=== PATIENT | female | born 1935 | race Two or more races ===

== ENCOUNTER 2018-05-26 23:01 | Inpatient (IN) | payer MEDICARE, OTHER ==
[~2018-05-26] VITALS: Ht 160 cm; Wt 78.0 kg
[2018-05-26 23:21] VITALS: BP 165/110
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
[2018-05-26] MEDS ORDERED: Acetaminophen 500mg (ES) tab ORAL ONE (23:30)
[2018-05-26 23:36] LABS: BASOPHILS % (AUTO) 0.5 % (0.0-2.0); EOSINOPHILS % (AUTO) 0.1 % (0.0-3.0); HEMOGLOBIN 11.4 G/DL (12.0-16.0); LYMPHOCYTES % (AUTO) 13.9 % (20.0-45.0); MEAN CORPUSCULAR VOLUME 95 FL (80-99); MONOCYTES % (AUTO) 5.2 % (1.0-10.0); NEUTROPHILS % (AUTO) 80.2 % (45.0-75.0); PLATELET COUNT 190 K/UL (150-450); RED BLOOD COUNT 3.58 M/UL (4.20-5.40); RED CELL DISTRIBUTION WIDTH 13.3 % (11.6-14.8); WHITE BLOOD COUNT 8.9 K/UL (4.8-10.8)
[2018-05-26] MEDS ORDERED: DOCUSATE SODIU100 MG ORAL (23:37)
[2018-05-26] MEDS ORDERED: GABAPENTIN100 MG ORAL (23:37)
[2018-05-26] MEDS ORDERED: METHOCARBAMOL500 MG ORAL (23:37)
[2018-05-26] MEDS ORDERED: TRAMADOL HCL50 MG ORAL (23:37)
[2018-05-26] MEDS ORDERED: ASPIR 8181 MG ORAL (23:37)
[2018-05-26] MEDS ORDERED: METOPROLOL SUCC50 MG ORAL (23:37)
[2018-05-26] MEDS ORDERED: IRON325 M1 PO (23:37)
[2018-05-26] MEDS ORDERED: ACETAMINOPHEN500 M3 ORAL (23:37)
[2018-05-26] MEDS ORDERED: VITAMIN D250000 UNI1 ORAL (23:37)
[2018-05-26 23:49] LABS: ANION GAP 11 mmol/L (5-15); BLOOD UREA NITROGEN 22 mg/dL (7-18); CALCIUM 8.7 MG/DL (8.5-10.1); CARBON DIOXIDE 20 MMOL/L (21-32); CHLORIDE 99 MMOL/L (98-107); CREATININE 1.6 MG/DL (0.55-1.30); POTASSIUM 4.4 MMOL/L (3.5-5.1); SODIUM 130 MMOL/L (136-145)
--- NOTE | 2018-05-27 | NUR ---
NURSE NOTES: received pt sleeping in stable condition. no s/s of acute distress or acute pain. safety precautions in place. will continue to monitor
[2018-05-27 00:02] LABS: ALANINE AMINOTRANSFERASE 19 U/L (12-78); ALBUMIN/GLOBULIN RATIO 0.6 (1.0-2.7); ALKALINE PHOSPHATASE 66 U/L (46-116); ASPARTATE AMINO TRANSFERASE 25 U/L (15-37); BILIRUBIN,TOTAL 0.5 MG/DL (0.2-1.0); CKMB 1.1 NG/ML (0.0-3.6); CREATINE KINASE 146 U/L (26-308)
--- NOTE | 2018-05-27 00:15 | NUR ---
ED Nurse Note: URINE SENT TO LAB
[2018-05-27 00:24] LABS: APPEARANCE,URINE CLOUDY; BILIRUBIN, URINE NEGATIVE (NEGATIVE); COLOR,URINE YELLOW; GLUCOSE, URINE (UA) NEGATIVE (NEGATIVE); KETONES,URINE NEGATIVE (NEGATIVE); LEUKOCYTE ESTERASE ,URINE 3+ (NEGATIVE); NITRITE,URINE NEGATIVE (NEGATIVE); PH,URINE 7 (4.5-8.0); PROTEIN,URINE 3+ (NEGATIVE); UROBILINOGEN,URINE NORMAL MG/DL (0.0-1.0)
[2018-05-27] MEDS ORDERED: Cefepime HCl 1 GM in D5W 55 ML IVPB ONE (00:45)
[2018-05-27] MEDS ORDERED: Aspirin Baby 81mg ORAL ONE (00:45)
--- NOTE | 2018-05-27 01:05 | NUR ---
ED Nurse Note: (granddaughter) Carlos sears - [phone]
[2018-05-27 01:10] VITALS: BP 112/88
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
--- NOTE | 2018-05-27 02:20 | NUR ---
ED Nurse Note: TELEPHONE REPORT GIVEN TO MELYSSA JUÁREZ
--- NOTE | 2018-05-27 02:30 | NUR ---
ED Nurse Note: PT WAS SENT TO TELE WITH MICK, EMT AND SONI RN. PT WA ACCOMPANIED WITH [employer] MONITOR. PT IS AOX4, SKIN INTACT, NO IN ACTUE DISTRESS. PT DENIES PAIN THIS TIME. PT ON ROOM AIR VSS. ALL BELONINGS SENT WITH PT
--- NOTE | 2018-05-27 02:30 | NUR ---
NURSE NOTES: received pt from ER pt with no acute distress noted. personal belonging list checked and signed.will continue to monitor pt
[2018-05-27 04:00] VITALS: BP 114/65
--- NOTE | 2018-05-27 06:52 | NUR ---
NURSE NOTES: pt in stable condition. will endorse pt to incoming nurse.
--- NOTE | 2018-05-27 07:20 | NUR ---
NURSE NOTES: I received the patient awake and resting in bed. Patient alert and oriented x4. Patient does not display any signs of distress or SOB. Bed in the lowest position and call light within reach.
--- NOTE | 2018-05-27 07:32 | NUR ---
HAND-OFF: Report given to Skye RN .
[2018-05-27 08:00] VITALS: BP 165/105
[2018-05-27] MEDS: Heparin 5000 units/ml inj SUBQ SCH ×2 (08:46→20:23)
[2018-05-27] MEDS ORDERED: Docusate 100mg cap ORAL SCH (09:00)
[2018-05-27] MEDS ORDERED: HydrALAZINE 25mg tab ORAL SCH (09:30)
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
[2018-05-27] MEDS ORDERED: Methocarbamol 500mg tab ORAL PRN (09:45)
[2018-05-27] MEDS: Aspirin EC 81mg tab ORAL SCH ×2 (10:00→10:13)
[2018-05-27] MEDS: cefTRIAXone 1 GM in NS 55 ML IVPB SCH (10:13)
--- NOTE | 2018-05-27 11:31 | NUR ---
NURSE NOTES: Dr. Deleon was made aware of patient's troponin level.
[2018-05-27 12:00] VITALS: BP 133/68
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
[2018-05-27] MEDS: Metoprolol Succinate XL 50mg tab ORAL SCH (14:03)
--- NOTE | 2018-05-27 15:07 | NUR ---
CASE MANAGEMENT: REVIEW 82/F PRESENTED TO ED FROM HOME CC: FEVER 101.9 SI: UTI . SEPSIS T 101.8 HR 132 RR 23 BP 165/110 SAT 98% ROOM AIR H/H 11.4/34.0 BUN 22 CR 1.6 UA: LEUKOCYTE ESTERASE 3+ WBC 60-80 IS: TYLENOL PO X1 NS IVF BOLUS X1 ASA PO X1 CEFEPIME IV X1 PATIENT ADMITTED TO TELEMETRY UNIT 05/27/2018 DCP: PATIENT IS FROM HOME
[2018-05-27 16:00] VITALS: BP 141/99
[2018-05-27] MEDS: traMADol 50mg tab ORAL PRN (16:16)
[2018-05-27] MEDS: Docusate 100mg cap ORAL SCH (18:19)
--- NOTE | 2018-05-27 18:28 | NUR ---
NURSE NOTES: Dr. Deleon made aware of patient's troponin. She said there is not need to repeat another troponin blood test.
--- NOTE | 2018-05-27 19:22 | Infectious Diseases Prog Note ---
Assessment/Plan Assessment/Plan Full consult dictated: A) 1) uti, pyelonephritis, sepsis, fevers, sirs 2) allergies - pcn, tolerates cephalosporins 3) pmh noted P) 1) ceftriaxone 2) check urine cultures 3) check labs 4) thank you Subjective Allergies: Coded Allergies: PENICILLINS (Verified Allergy, Unknown, 05/26/18) Objective Vital Signs Last 24 Hour Vital Signs Date Time Temp Pulse Resp B/P (MAP) Pulse Ox O2 Delivery O2 Flow Rate FiO2 05/27/18 16:52 97.0 05/27/18 16:46 100.9 05/27/18 16:00 100.9 81 20 141/99 (113) 05/27/18 15:31 85 05/27/18 14:03 103 137/68 05/27/18 12:00 99.7 97 20 133/68 (89) 05/27/18 11:45 93 05/27/18 10:14 174/80 05/27/18 09:00 Room Air 05/27/18 08:00 99.8 84 20 165/105 (125) 05/27/18 07:44 95 05/27/18 05:11 Room Air 05/27/18 04:00 111 05/27/18 04:00 97.1 78 20 114/65 (81) 100 05/27/18 03:32 Room Air 05/27/18 02:30 100.1 88 18 96/64 96 Room Air 05/27/18 01:10 103.1 95 19 112/88 95 Room Air 05/27/18 00:03 103.1 05/26/18 23:21 101.8 132 23 165/110 98 Room Air 05/26/18 23:21 132 23 Room Air 05/26/18 23:11 101.8 132 23 165/110 98 Room Air Height (Feet): 5 Height (Inches): 3.00 Weight (Pounds): 140 Laboratory Tests Test 05/26/18 23:11 05/27/18 00:00 05/27/18 10:30 05/27/18 15:55 White Blood Count 8.9 K/UL (4.8-10.8) Red Blood Count 3.58 M/UL (4.20-5.40) L Hemoglobin 11.4 G/DL (12.0-16.0) L Hematocrit 34.0 % (37.0-47.0) L Mean Corpuscular Volume 95 FL (80-99) Mean Corpuscular Hemoglobin 31.8 PG (27.0-31.0) H Mean Corpuscular Hemoglobin Concent 33.4 G/DL (32.0-36.0) Red Cell Distribution Width 13.3 % (11.6-14.8) Platelet Count 190 K/UL (150-450) Mean Platelet Volume 8.8 FL (6.5-10.1) Neutrophils (%) (Auto) 80.2 % (45.0-75.0) H Lymphocytes (%) (Auto) 13.9 % (20.0-45.0) L Monocytes (%) (Auto) 5.2 % (1.0-10.0) Eosinophils (%) (Auto) 0.1 % (0.0-3.0) Basophils (%) (Auto) 0.5 % (0.0-2.0) Prothrombin Time 10.8 SEC (9.30-11.50) Prothromb Time International Ratio 1.0 (0.9-1.1) Activated Partial Thromboplast Time 31 SEC (23-33) Sodium Level 130 MMOL/L (136-145) L Potassium Level 4.4 MMOL/L (3.5-5.1) Chloride Level 99 MMOL/L (98-107) Carbon Dioxide Level 20 MMOL/L (21-32) L Anion Gap 11 mmol/L (5-15) Blood Urea Nitrogen 22 mg/dL (7-18) H Creatinine 1.6 MG/DL (0.55-1.30) H Estimat Glomerular Filtration Rate mL/min (>60) Glucose Level 174 MG/DL (74-106) H Lactic Acid Level 1.60 mmol/L (0.4-2.0) Calcium Level 8.7 MG/DL (8.5-10.1) Total Bilirubin 0.5 MG/DL (0.2-1.0) Aspartate Amino Transf (AST/SGOT) 25 U/L (15-37) Alanine Aminotransferase (ALT/SGPT) 19 U/L (12-78) Alkaline Phosphatase 66 U/L (46-116) Total Creatine Kinase 146 U/L (26-308) Creatine Kinase MB 1.1 NG/ML (0.0-3.6) Creatine Kinase MB Relative Index 0.7 Troponin I 0.116 ng/mL (0.000-0.056) 0.217 ng/mL (0.000-0.056) 0.195 ng/mL (0.000-0.056) Total Protein 7.7 G/DL (6.4-8.2) Albumin 3.0 G/DL (3.4-5.0) L Globulin 4.7 g/dL Albumin/Globulin Ratio 0.6 (1.0-2.7) L Urine Color Yellow Urine Appearance Cloudy Urine pH 7 (4.5-8.0) Urine Specific [place] 1.005 (1.005-1.035) Urine Protein 3+ (NEGATIVE) H Urine Glucose (UA) Negative (NEGATIVE) Urine Ketones Negative (NEGATIVE) Urine Blood 4+ (NEGATIVE) H Urine Nitrite Negative (NEGATIVE) Urine Bilirubin Negative (NEGATIVE) Urine Urobilinogen Normal MG/DL (0.0-1.0) Urine Leukocyte Esterase 3+ (NEGATIVE) H Urine RBC 5-10 /HPF (0 - 2) H Urine WBC 60-80 /HPF (0 - 2) H Urine Squamous Epithelial Cells Moderate /LPF (NONE/OCC) H Urine Bacteria Many /HPF (NONE) H Current Medications Medications (Trade) Dose Ordered Sig/Leslie Route PRN Reason Start Time Stop Time Status Last Admin Dose Admin Acetaminophen (Tylenol) 650 mg Q4H PRN ORAL Mild Pain (Pain Scale 1-3) 05/27/18 02:00 06/26/18 01:59 05/27/18 16:22 Aspirin (Ecotrin) 81 mg DAILY ORAL 05/27/18 10:00 06/26/18 09:59 Ceftriaxone Sodium 1 gm/ Sodium Chloride 55 ml @ 110 mls/hr Q24HRS IVPB 05/27/18 09:00 06/03/18 08:59 05/27/18 10:13 Dextrose (Dextrose 50%) 25 ml Q30M PRN IV Hypoglycemia 05/27/18 02:00 06/26/18 01:59 Dextrose (Dextrose 50%) 50 ml Q30M PRN IV Hypoglycemia 05/27/18 02:00 06/26/18 01:59 Diphenhydramine HCl (Benadryl) 25 mg Q6H PRN ORAL Itching/Pruritis 05/27/18 02:00 06/26/18 01:59 Docusate Sodium (Colace) 100 mg TWICE A DAY ORAL 05/27/18 18:00 06/26/18 17:59 05/27/18 18:19 Ferrous Sulfate (Feosol) 325 mg BIDBL ORAL 05/27/18 11:30 06/26/18 11:29 05/27/18 14:02 Gabapentin (Neurontin) 100 mg THREE TIMES A DAY ORAL 05/27/18 13:00 06/26/18 12:59 05/27/18 18:19 Heparin Sodium (Porcine) (Heparin 5000 units/ml) 5,000 units EVERY 12 HOURS SUBQ 05/27/18 09:00 06/26/18 08:59 Methocarbamol (Robaxin) 500 mg QIDPRN PRN ORAL muscle spasms 05/27/18 09:45 06/26/18 09:44 Metoprolol Succinate (Toprol XL) 50 mg DAILY ORAL 05/27/18 12:00 06/26/18 11:59 05/27/18 14:03 Ondansetron HCl (Zofran) 4 mg Q6H PRN IVP Nausea & Vomiting 05/27/18 02:00 06/26/18 01:59 Sodium Chloride 1,000 ml @ 75 mls/hr [id number] IVLG 05/27/18 02:51 06/26/18 02:50 05/27/18 04:05 Tramadol HCl (Ultram) 50 mg Q6H PRN ORAL For Pain 05/27/18 09:45 06/03/18 09:44 05/27/18 16:16 Chico Stevens MD May 27, 2018 19:22
--- NOTE | 2018-05-27 19:39 | NUR ---
HAND-OFF: Report given to MELYSSA Otoole.
[2018-05-27 20:00] VITALS: BP 117/59
--- NOTE | 2018-05-27 20:10 | Cardiology Report ---
APPROVED REPORT EXAM: Two-dimensional and M-mode echocardiogram with Doppler and color Doppler. INDICATION C.A.D. M-Mode DIMENSIONS IVSd1.1 (0.7-1.1cm)Left Atrium (MM)2.8 (1.6-4.0cm) LVDd6.0 (3.5-5.6cm)Aortic Root3.3 (2.0-3.7cm) PWd1.3 (0.7-1.1cm)Aortic Cusp Exc.1.6 (1.5-2.0cm) IVSs1.6 cm LVDs4.4 (2.5-4.0cm) PWs1.1 cm Other Information Technically limited study due to poor acoustical windows . Normal left ventricular chamber size, systolic function and wall motion. Left ventricular ejection fraction estimated to be 55%. Mild left ventricular hypertrophy by 2-D. No evidence of pericardial fat or effusion. Mild left atrial enlargement . Right cardiac chamber sizes are within normal limits. Mild aortic valve sclerosis with adequate cusp excursion. Mildly thickened mitral valve leaflets with normal excursion. Mild mitral annulus and aortic root calcification. Pulmonic valve not well visualized. IVC at normal size with physiologic collapse . A color flow and spectral Doppler study was performed and revealed: Trace aortic insufficency. Mitral diastolic velocities suggest reduced left ventricular relaxation c/w mild LV diastolic dysfunction (Grade I ) Mild mitral regurgitation. Mild tricuspid regurgitation. Tricuspid systolic velocities suggests peak right ventricular systolic pressure of 39mmHg,consistent with mild pulmonary hypertension .
[2018-05-28] VITALS (7 sets, daily range): BP systolic 114–144; BP diastolic 49–81
--- NOTE | 2018-05-28 | NUR ---
NURSE NOTES: pt asking for water.no c/o pain but minimal discomfort in right arm. pain med offered, pt states" its not pain it is just discomfort" pt in stable condition. will continue to monitor
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
--- NOTE | 2018-05-28 07:13 | NUR ---
NURSE NOTES: pt reminded in stable condition during my shift. will endorse care plan to incoming nurse
--- NOTE | 2018-05-28 07:20 | NUR ---
NURSE NOTES: I received the patient awake and resting in bed. Patient alert and oriented x4. Bed in the lowest position and call light within reach. Patient reminded to use the call light when needing assistance. Patient does not display any signs of distress or SOB.
--- NOTE | 2018-05-28 07:40 | NUR ---
HAND-OFF: Report given to Zayda RAGSDALE.
[2018-05-28] MEDS ORDERED: Tobramyicin Rx to dose MISC PRN (08:00)
[2018-05-28] MEDS: Aspirin EC 81mg tab ORAL SCH (08:28)
[2018-05-28] MEDS: cefTRIAXone 1 GM in NS 55 ML IVPB SCH (08:28)
[2018-05-28] MEDS: Docusate 100mg cap ORAL SCH ×2 (08:28→17:51)
[2018-05-28] MEDS: Heparin 5000 units/ml inj SUBQ SCH ×2 (08:30→21:56)
[2018-05-28 08:50] LABS: BASOPHILS % (AUTO) 1.3 % (0.0-2.0); EOSINOPHILS % (AUTO) 1.5 % (0.0-3.0); HEMATOCRIT 30.1 % (37.0-47.0); HEMOGLOBIN 9.9 G/DL (12.0-16.0); LYMPHOCYTES % (AUTO) 17.7 % (20.0-45.0); MEAN CORPUSCULAR VOLUME 95 FL (80-99); MONOCYTES % (AUTO) 9.4 % (1.0-10.0); NEUTROPHILS % (AUTO) 70.1 % (45.0-75.0); PLATELET COUNT 160 K/UL (150-450); RED BLOOD COUNT 3.15 M/UL (4.20-5.40); RED CELL DISTRIBUTION WIDTH 13.4 % (11.6-14.8); WHITE BLOOD COUNT 5.9 K/UL (4.8-10.8)
[2018-05-28 09:10] LABS: ANION GAP 10 mmol/L (5-15); BLOOD UREA NITROGEN 14 mg/dL (7-18); CALCIUM 8.2 MG/DL (8.5-10.1); CARBON DIOXIDE 21 MMOL/L (21-32); CHLORIDE 104 MMOL/L (98-107); CREATININE 1.2 MG/DL (0.55-1.30); POTASSIUM 4.1 MMOL/L (3.5-5.1); SODIUM 135 MMOL/L (136-145)
[2018-05-28] MEDS ORDERED: NS IV SCH ×2 (10:00→11:00)
[2018-05-28] MEDS ORDERED: TOBRAMYCIN IV SCH ×2 (10:00→11:00)
[2018-05-28] MEDS: Metoprolol Succinate XL 50mg tab ORAL SCH (10:00)
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
[2018-05-28] MEDS ORDERED: Sennosides 8.6mg tab ORAL PRN (18:00)
--- NOTE | 2018-05-28 19:42 | NUR ---
NURSE NOTES: I received report from MELYSSA Priest. The patient awake and resting in bed. Patient alert and oriented x4. Bed in the lowest position and call light within reach. Patient reminded to use the call light when needing assistance. Patient does not display any signs of distress or SOB.
--- NOTE | 2018-05-28 19:43 | NUR ---
HAND-OFF: Report given to MELYSSA Garcia.
--- NOTE | 2018-05-28 20:30 | NUR ---
HAND-OFF: Report given to MELYSSA Guerrero. Patient is resting in bed. Patient states pain in right arm. Endorsed to MELYSSA Guerrero.
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
[2018-05-29] VITALS: BP 133/80
[2018-05-29] MEDS: traMADol 50mg tab ORAL PRN (00:07)
[2018-05-29 04:00] VITALS: BP 131/72
--- NOTE | 2018-05-29 07:22 | NUR ---
HAND-OFF: Report given to MELYSSA Baxter. Endorsed plane of care.
[2018-05-29 08:00] VITALS: BP 144/67
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
[2018-05-29] MEDS: Docusate 100mg cap ORAL SCH (08:50)
[2018-05-29] MEDS: Metoprolol Succinate XL 50mg tab ORAL SCH (08:50)
[2018-05-29] MEDS: cefTRIAXone 1 GM in NS 55 ML IVPB SCH (08:50)
[2018-05-29] MEDS: Sennosides 8.6mg tab ORAL SCH (08:51)
[2018-05-29] MEDS: Aspirin EC 81mg tab ORAL SCH (08:51)
[2018-05-29] MEDS: Heparin 5000 units/ml inj SUBQ SCH ×2 (08:52→21:00)
--- NOTE | 2018-05-29 08:59 | Cardiology Progress Note ---
Assessment/Plan Status: stable Assessment/Plan Assessment: Hypertension NSTEMI Urosepsis Chest pain Plan: Aspirin Metoprolol Nitro Check lipid panel Stress test when stable - ok as outpatient NO indication for cardiac cath Continue abx per ID Subjective Cardiovascular: Reports: no symptoms Respiratory: Reports: no symptoms Gastrointestinal/Abdominal: Reports: no symptoms Genitourinary: Reports: no symptoms Subjective NO chest pain, vitals stable, no fevers, TTE with normal function, complains of left arm pain Objective Last 24 Hour Vital Signs Date Time Temp Pulse Resp B/P (MAP) Pulse Ox O2 Delivery O2 Flow Rate FiO2 05/29/18 04:00 71 05/29/18 04:00 98.1 71 16 131/72 (91) 96 05/29/18 00:00 78 05/29/18 00:00 98.1 78 17 133/80 (97) 97 05/28/18 21:00 Room Air 05/28/18 20:00 98.2 78 20 138/81 (100) 98 05/28/18 19:06 79 05/28/18 16:00 97.0 45 19 131/73 (92) 05/28/18 15:25 78 05/28/18 11:53 98.9 66 19 114/55 (74) 05/28/18 11:30 62 05/28/18 10:00 80 122/57 05/28/18 09:59 80 122/57 (78) General Appearance: no apparent distress, alert EENT: PERRL/EOMI, normal ENT inspection Neck: non-tender, normal alignment Rhythm: NSR Cardiovascular: normal peripheral pulses, normal rate, regular rhythm Respiratory/Chest: chest wall non-tender, lungs clear, normal breath sounds Abdomen: normal bowel sounds, non tender, soft Extremities: normal range of motion, non-tender, normal inspection 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, no motor/sensory deficits Intake and Output 05/28/18 05/29/18 19:00 07:00 Intake Total 1535 ml 75 ml Output Total 100 ml Balance 1435 ml 75 ml Intake Oral 260 ml IV Total 1025 ml 75 ml Other 250 ml Output Urine Total 100 ml # Voids 2 Laboratory Tests Test 05/29/18 00:20 Random Tobramycin Level 2.2 ug/mL Microbiology Date/Time Source Procedure Growth Status 05/26/18 23:21 Blood Blood Culture - Final Escherichia Coli Complete 05/26/18 23:05 Blood Blood Culture - Final Escherichia Coli Complete 05/27/18 00:00 Urine,Clean Catch Urine Culture - Final Escherichia Coli Complete Estiven Thomson MD May 29, 2018 08:59
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
--- NOTE | 2018-05-29 10:41 | NUR ---
RADIOLOGY DEPT., RIGHT HUMERUS X-RAY COMPLETED.-P.DYE
[2018-05-29 12:00] VITALS: BP 146/68
--- NOTE | 2018-05-29 13:14 | Consultation ---
Consult Note Consult Note update upon review of Xray [facility] chart reviewed as well. Pt has pre and post reduction films at [facility] and following post reduction films fracture was aligned well. Dr. Mckeon was comfortable proceeding non operatively based on those Xray. was supposed to see her today for f/u xray and mentioned that if fracture alignment changed she'd require ORIF on current Xrays, reduction has been lost and fracture is displaced. I recommend at this time that Pt be changed into a Alexander Brace for the rt UE. If fracture is still displaced in the Alexander, then pt will require ORIF with Dr Mckeon. Dr. Mckeon is an upper extremity trauma specialist and pt should have a prompt apt with him upon d/c- hopefully before the end of this week or first thing next week to have him re eval her and decide on surgery vs non surgery for the Rt UE. Maria Victoria May 29, 2018 13:14
[2018-05-29 16:00] VITALS: BP 137/67
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
--- NOTE | 2018-05-29 17:08 | NUR ---
GOVERNMENT MINISTER NOTES ORDER FAXED TO [facility] FOR BRACE.
--- NOTE | 2018-05-29 17:08 | NUR ---
NURSE NOTES: dr. MENENDEZ ordered RT humerus devine brace, spoke with casework supervisor BELINDA, SHE IS GOING TO ORDERED.
--- NOTE | 2018-05-29 19:28 | NUR ---
HAND-OFF: Report given to ZULLY RAGSDALE, CONDITION STABLE.
--- NOTE | 2018-05-29 19:33 | NUR ---
NURSE NOTES: Received pt from MELYSSA Baxter. Pt awake and resting in bed. IV patent and intact. Pt declines pain. Bed in lowest position, call light within reach. Will continue with plan of care.
[2018-05-29 20:00] VITALS: BP 136/67
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
[2018-05-29] MEDS ORDERED: NS IV SCH (23:00)
[2018-05-29] MEDS ORDERED: TOBRAMYCIN IV SCH (23:00)
[2018-05-30 04:00] VITALS: BP 148/69
--- NOTE | 2018-05-30 07:35 | NUR ---
HAND-OFF: Report given to MELYSSA Arellano. Endorsed plan of care.
[2018-05-30 08:00] VITALS: BP 139/78
[2018-05-30 08:38] LABS: BASOPHILS % (AUTO) 1.5 % (0.0-2.0); EOSINOPHILS % (AUTO) 2.7 % (0.0-3.0); HEMOGLOBIN 12.5 G/DL (12.0-16.0); LYMPHOCYTES % (AUTO) 34.1 % (20.0-45.0); MEAN CORPUSCULAR VOLUME 95 FL (80-99); MONOCYTES % (AUTO) 9.4 % (1.0-10.0); NEUTROPHILS % (AUTO) 52.2 % (45.0-75.0); PLATELET COUNT 243 K/UL (150-450)
[2018-05-30 09:22] LABS: ANION GAP 11 mmol/L (5-15); BLOOD UREA NITROGEN 8 mg/dL (7-18); CALCIUM 9.3 MG/DL (8.5-10.1); CARBON DIOXIDE 22 MMOL/L (21-32); CHLORIDE 107 MMOL/L (98-107); CREATININE 1.1 MG/DL (0.55-1.30); POTASSIUM 3.8 MMOL/L (3.5-5.1); SODIUM 140 MMOL/L (136-145)
--- NOTE | 2018-05-30 09:32 | NUR ---
NURSE NOTES: Pt on bedside commode, pt Ox3, pt in pain reports 6 out of 10, temporary cast will be removed and new Humerous Sarmeinto brace will be placed by tech (now) on RT upper arm, Md Venegasu states that the pt should be better in a couple of days, IV intact and patent, fluids running NS at 75/hr, no s/s of distress or sob noted.
[2018-05-30] MEDS: traMADol 50mg tab ORAL PRN ×2 (10:07→18:38)
[2018-05-30] MEDS: Sennosides 8.6mg tab ORAL SCH (10:07)
[2018-05-30] MEDS: cefTRIAXone 1 GM in NS 55 ML IVPB SCH (10:08)
[2018-05-30] MEDS: Heparin 5000 units/ml inj SUBQ SCH ×2 (10:08→20:53)
[2018-05-30] MEDS: Docusate 100mg cap ORAL SCH (10:08)
[2018-05-30] MEDS: Aspirin EC 81mg tab ORAL SCH (10:08)
[2018-05-30] MEDS: Metoprolol Succinate XL 50mg tab ORAL SCH (10:08)
--- NOTE | 2018-05-30 10:28 | NUR ---
CASE MANAGEMENT:REVIEW 05/30/18 SI: SEPSIS. RT HUMERUS FRACTURE 97.0 81 22 139/78 99% ON RA IS: IV ROCEPHIN Q24HRS IVF@75/HR ASA PO QD TOPROL XL PO QD NEURONTIN PO TID : TELEMETRY STATUS DCP: PATIENT IS FROM HOME
--- NOTE | 2018-05-30 10:31 | NUR ---
DISCHARGE PLANNING TAMAYO BRACE HAS BEEN DELIVERED AND PLACED ON PATIENT BY "[employer]" [employer] CALLED DR LACEY'S OFFICE AND SPOKE WITH LOGAN WHO SCHEDULED PATIENT FOR OUTPATIENT APPOINTMENT: DR LACEY T: [phone] Tuesday06/01/18 @ 8712
[2018-05-30 12:00] VITALS: BP 140/80
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
--- NOTE | 2018-05-30 14:31 | Cardiology Progress Note ---
Assessment/Plan Status: stable Assessment/Plan Assessment: Hypertension NSTEMI Urosepsis Chest pain Plan: Aspirin Metoprolol Nitro prn Stress test when stable - ok as outpatient NO indication for cardiac cath Continue abx per ID Ok to discharge from cardiology standpoint Subjective Cardiovascular: Reports: no symptoms Respiratory: Reports: no symptoms Gastrointestinal/Abdominal: Reports: no symptoms Genitourinary: Reports: no symptoms Subjective NO chest pain, vitals stable, no fevers, TTE with normal function, complains of left arm pain, seen by ortho this morning Objective Last 24 Hour Vital Signs Date Time Temp Pulse Resp B/P (MAP) Pulse Ox O2 Delivery O2 Flow Rate FiO2 05/30/18 12:00 97.2 83 21 140/80 (100) 98 05/30/18 11:09 69 05/30/18 10:37 97.0 05/30/18 10:08 81 139/78 05/30/18 09:52 Room Air 05/30/18 08:00 97.0 81 22 139/78 (98) 99 05/30/18 07:26 71 05/30/18 04:00 96 05/30/18 04:00 98.1 96 20 148/69 (95) 05/29/18 21:00 Room Air 05/29/18 20:00 78 05/29/18 20:00 97.5 78 20 136/67 (90) 98 05/29/18 16:00 74 05/29/18 16:00 97.2 69 20 137/67 (90) 98 General Appearance: no apparent distress, alert EENT: PERRL/EOMI, normal ENT inspection, TMs normal, pharynx normal Neck: non-tender, normal alignment, supple, normal inspection, no JVD Rhythm: NSR Cardiovascular: normal peripheral pulses, normal rate Respiratory/Chest: chest wall non-tender, lungs clear, normal breath sounds Abdomen: normal bowel sounds, non tender, soft, no organomegaly Extremities: normal range of motion, non-tender, normal inspection 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, no motor/sensory deficits Intake and Output 05/29/18 05/30/18 19:00 07:00 Intake Total 1580 ml Output Total 1100 ml Balance 480 ml Intake Oral 1000 ml IV Total 580 ml Output Urine Total 1100 ml # Voids 2 4 Laboratory Tests Test 05/29/18 19:45 05/30/18 08:15 Arterial Blood pH 7.421 (7.350-7.450) Arterial Blood Partial Pressure CO2 35.0 mmHg (35.0-45.0) Arterial Blood Partial Pressure O2 80.0 mmHg (75.0-100.0) Arterial Blood HCO3 22.2 mmol/L (22.0-26.0) Arterial Blood Oxygen Saturation 95.6 % (95-100) Arterial Blood Base Excess -1.7 (-2-2) Scott Test Positive White Blood Count 4.0 K/UL (4.8-10.8) L Red Blood Count 3.90 M/UL (4.20-5.40) L Hemoglobin 12.5 G/DL (12.0-16.0) Hematocrit 37.0 % (37.0-47.0) Mean Corpuscular Volume 95 FL (80-99) Mean Corpuscular Hemoglobin 32.1 PG (27.0-31.0) H Mean Corpuscular Hemoglobin Concent 33.9 G/DL (32.0-36.0) Red Cell Distribution Width 13.0 % (11.6-14.8) Platelet Count 243 K/UL (150-450) Mean Platelet Volume 8.3 FL (6.5-10.1) Neutrophils (%) (Auto) 52.2 % (45.0-75.0) Lymphocytes (%) (Auto) 34.1 % (20.0-45.0) Monocytes (%) (Auto) 9.4 % (1.0-10.0) Eosinophils (%) (Auto) 2.7 % (0.0-3.0) Basophils (%) (Auto) 1.5 % (0.0-2.0) Sodium Level 140 MMOL/L (136-145) Potassium Level 3.8 MMOL/L (3.5-5.1) Chloride Level 107 MMOL/L (98-107) Carbon Dioxide Level 22 MMOL/L (21-32) Anion Gap 11 mmol/L (5-15) Blood Urea Nitrogen 8 mg/dL (7-18) Creatinine 1.1 MG/DL (0.55-1.30) Estimat Glomerular Filtration Rate mL/min (>60) Glucose Level 103 MG/DL (74-106) Calcium Level 9.3 MG/DL (8.5-10.1) Estiven Thomson MD May 30, 2018 14:31
[2018-05-30 16:00] VITALS: BP 138/77
--- NOTE | 2018-05-30 19:41 | NUR ---
HAND-OFF: Report given to Ronna posey.
--- NOTE | 2018-05-30 19:49 | NUR ---
NURSE NOTES: RECEIVED PATIENT RESTING IN BED, RIGHT ARM IN BRACE, NO COMPLAINTS OF PAIN AT THIS TIME. FALL PRECAUTIONS IN PLACE: CALL LIGHT, BEDSIDE TABLE AND COMMODE WITHIN REACH, BED IN LOW POSITION AND BED ALARM ON. PLAN OF CARE REVIEWED.
[2018-05-30 21:00] VITALS: BP 151/76
--- NOTE | 2018-05-30 21:00 | NUR ---
NURSE NOTES: ASSISTED PATIENT TO BEDSIDE COMMODE AND BACK TO BED. RIGHT ARM IN TAMAYO BRACE. NOTED RIGHT ARM SWOLLEN, WARM TO TOUCH. PATIENT ABLE TO WIGGLE FINGERS, RADIAL PULSE PRESENT. WILL CONTINUE TO MONITOR. CALL LIGHT WITHIN REACH.
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
--- NOTE | 2018-05-30 22:00 | Neurology Progress Note ---
Interim History Interim History ROS Limited/Unobtainable: No Complaints: Her right arm continues to be her main concern Events: None noted/ reported Interim History Right arm edema and pain continue. No episodes of confusion/ AMS/ LOC. No episodes of shivering/ fever. Review of Systems All Systems: reviewed and negative except above Objective Physical Exam Last Vital Signs Date Time Temp Pulse Resp B/P (MAP) Pulse Ox O2 Delivery O2 Flow Rate FiO2 05/30/18 19:08 97.0 05/30/18 16:00 80 21 138/77 (97) 99 05/30/18 09:52 Room Air Laboratory Tests Test 05/30/18 08:15 White Blood Count 4.0 K/UL (4.8-10.8) L Red Blood Count 3.90 M/UL (4.20-5.40) L Hemoglobin 12.5 G/DL (12.0-16.0) Hematocrit 37.0 % (37.0-47.0) Mean Corpuscular Volume 95 FL (80-99) Mean Corpuscular Hemoglobin 32.1 PG (27.0-31.0) H Mean Corpuscular Hemoglobin Concent 33.9 G/DL (32.0-36.0) Red Cell Distribution Width 13.0 % (11.6-14.8) Platelet Count 243 K/UL (150-450) Mean Platelet Volume 8.3 FL (6.5-10.1) Neutrophils (%) (Auto) 52.2 % (45.0-75.0) Lymphocytes (%) (Auto) 34.1 % (20.0-45.0) Monocytes (%) (Auto) 9.4 % (1.0-10.0) Eosinophils (%) (Auto) 2.7 % (0.0-3.0) Basophils (%) (Auto) 1.5 % (0.0-2.0) Sodium Level 140 MMOL/L (136-145) Potassium Level 3.8 MMOL/L (3.5-5.1) Chloride Level 107 MMOL/L (98-107) Carbon Dioxide Level 22 MMOL/L (21-32) Anion Gap 11 mmol/L (5-15) Blood Urea Nitrogen 8 mg/dL (7-18) Creatinine 1.1 MG/DL (0.55-1.30) Estimat Glomerular Filtration Rate mL/min (>60) Glucose Level 103 MG/DL (74-106) Calcium Level 9.3 MG/DL (8.5-10.1) General: well developed, well nourished, no acute distress Head: normocophalic Neck: no rigidity EENT: benign Neurologic Exam Mental Status: awake, alert, oriented x4, normal cognition, normal recent memory, normal remote memory Speech: normal speech, no dysarthia Language: normal language, no aphasia Cranial Nerve II: fundus normal, visual xiong, no papilledema Cranial Nerves III, IV, : PERRLA, EOMI Cranial Nerve V: normal facial sensations, masseters function normal, pterygoids function normal Cranial Nerve VII: no facial asymmetry Cranial Nerve VIII: normal hearing Cranial Nerve IX: normal palate elevation Cranial Nerve X: no voice hoarseness Cranial Nerve XI: SCM symmetric Cranial Nerve XII: tongue midline Motor System: normal muscle tone, strength 5/5 Sensory: normal pinprick, normal light touch Coordination: other - No dysmetria on left finger to nose- Unable to test RUE. Gait: other - Ambulates without difficulty as per report- still using 1 person assist OOB. Impression/Recommendations Problems: (1) Shivering Assessment & Plan: No further reports of fever. No clinical signs of current, recent seizure activity or post ictal status Will follow and monitor neurological status throughout admission. (2) UTI (urinary tract infection) Assessment & Plan: Treated with antibiotics - afebrile > 48 hrs. (3) Sepsis Assessment & Plan: Treated with antibiotics - afebrile > 48 hrs. (4) Hematoma of scalp Assessment & Plan: Swelling improved today. (5) At risk for infection Assessment & Plan: Significant right arm edema (6) Edema of upper extremity Assessment & Plan: Venous Doppler ordered to R/O DVT Status: stable Recommendations Reorient the patient frequently/ as needed. Complete ABX course Q shift neurological observations Help maintain sleep hygiene with OOB during the day/ quiet, dark room at night Avoid use of benzodiazapenes, anti cholinergic, and narcotic medications. Avoid infection risks: Right arm is significantly edematous- cellulitis risk . Kelsi Avila N.P. May 30, 2018 22:00
[2018-05-31] VITALS: BP 148/72
--- NOTE | 2018-05-31 00:47 | Neurology Progress Note ---
Interim History Interim History ROS Limited/Unobtainable: No Complaints: Shivering Events: None noted/ reported Interim History No new events, afebrile, without report of shaking/ tremors/ shivering throughout admision. Objective Physical Exam Last Vital Signs Date Time Temp Pulse Resp B/P (MAP) Pulse Ox O2 Delivery O2 Flow Rate FiO2 05/31/18 00:00 74 05/30/18 21:00 97.9 18 151/76 (101) 97 05/30/18 21:00 Room Air Laboratory Tests Test 05/30/18 08:15 White Blood Count 4.0 K/UL (4.8-10.8) L Red Blood Count 3.90 M/UL (4.20-5.40) L Hemoglobin 12.5 G/DL (12.0-16.0) Hematocrit 37.0 % (37.0-47.0) Mean Corpuscular Volume 95 FL (80-99) Mean Corpuscular Hemoglobin 32.1 PG (27.0-31.0) H Mean Corpuscular Hemoglobin Concent 33.9 G/DL (32.0-36.0) Red Cell Distribution Width 13.0 % (11.6-14.8) Platelet Count 243 K/UL (150-450) Mean Platelet Volume 8.3 FL (6.5-10.1) Neutrophils (%) (Auto) 52.2 % (45.0-75.0) Lymphocytes (%) (Auto) 34.1 % (20.0-45.0) Monocytes (%) (Auto) 9.4 % (1.0-10.0) Eosinophils (%) (Auto) 2.7 % (0.0-3.0) Basophils (%) (Auto) 1.5 % (0.0-2.0) Sodium Level 140 MMOL/L (136-145) Potassium Level 3.8 MMOL/L (3.5-5.1) Chloride Level 107 MMOL/L (98-107) Carbon Dioxide Level 22 MMOL/L (21-32) Anion Gap 11 mmol/L (5-15) Blood Urea Nitrogen 8 mg/dL (7-18) Creatinine 1.1 MG/DL (0.55-1.30) Estimat Glomerular Filtration Rate mL/min (>60) Glucose Level 103 MG/DL (74-106) Calcium Level 9.3 MG/DL (8.5-10.1) General: well developed, well nourished, no acute distress Head: normocophalic Neck: no rigidity EENT: benign Neurologic Exam Mental Status: awake, alert, oriented x4, normal cognition, normal recent memory, normal remote memory Speech: normal speech, no dysarthia Language: normal language, no aphasia Cranial Nerve II: fundus normal, visual xiong, no papilledema Cranial Nerves III, IV, : PERRLA, EOMI Cranial Nerve V: normal facial sensations, masseters function normal, pterygoids function normal Cranial Nerve VII: no facial asymmetry Cranial Nerve VIII: normal hearing Cranial Nerve IX: normal palate elevation Cranial Nerve X: no voice hoarseness Cranial Nerve XI: SCM symmetric Cranial Nerve XII: tongue midline Motor System: normal muscle tone, strength 5/5 Sensory: normal pinprick, normal light touch Coordination: other - No dysmetria on left finger to nose- Unable to test RUE. Gait: other - Ambulates without difficulty as per report- still using 1 person assist OOB. Impression/Recommendations Problems: (1) Shivering Assessment & Plan: No further reports of fever. No clinical signs of current, recent seizure activity or post ictal status Will follow and monitor neurological status throughout admission. (2) UTI (urinary tract infection) Assessment & Plan: Treated with antibiotics - afebrile > 48 hrs. (3) Sepsis Assessment & Plan: Treated with antibiotics - afebrile > 48 hrs. (4) Hematoma of scalp Assessment & Plan: Swelling improved today. (5) At risk for infection Assessment & Plan: Significant right arm edema (6) Edema of upper extremity Assessment & Plan: Venous Doppler ordered to R/O DVT Status: doing well, stable Recommendations Clear for discharge from a neurological point of view. Kelsi Avila N.P. May 31, 2018 00:47
[2018-05-31 04:00] VITALS: BP 142/91
--- NOTE | 2018-05-31 07:10 | NUR ---
HAND-OFF: Report given to MELYSSA SIERRA. PATIENT ASLEEP, NO SIGNS OF DISTRESS NOTED.
--- NOTE | 2018-05-31 07:41 | NUR ---
Recv. report from Ronna. Pt. resting in bed. 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 Bed locked and in lowest position. Call light within reach. Will continue plan of Care.
[2018-05-31 08:00] VITALS: BP 131/69
[2018-05-31] MEDS: Docusate 100mg cap ORAL SCH (08:35)
[2018-05-31] MEDS: Metoprolol Succinate XL 50mg tab ORAL SCH (08:35)
[2018-05-31] MEDS: Aspirin EC 81mg tab ORAL SCH (08:35)
[2018-05-31] MEDS: Sennosides 8.6mg tab ORAL SCH (08:36)
[2018-05-31] MEDS: Heparin 5000 units/ml inj SUBQ SCH ×2 (08:36→21:44)
[2018-05-31] MEDS: cefTRIAXone 1 GM in NS 55 ML IVPB SCH (08:37)
[2018-05-31 12:00] VITALS: BP 164/72
--- NOTE | 2018-05-31 15:47 | NUR ---
NURSE NOTES:Pt skin assessed with primary nurse present . Sacrum and both ischial areas are intact. both heels are blanchable .Pt is mobile in and out of bed .Pt educated on wound prevention .Encouraged to avoid sliding against bedlinen and instructed to turn frequently while in bed.
[2018-05-31 16:00] VITALS: BP 153/71
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
--- NOTE | 2018-05-31 18:58 | NUR ---
CASE MANAGEMENT: REVIEW SI: UTI . SEPSIS T 98.8 HR 106 RR 24 BP 164/72 SAT 98% ROOM AIR IS: NS IVF @75ML/HR ROCEPHIN IV Q24HR TOPROL XL PO QD HEPARIN SQ Q12HR TELEMETRY UNIT STATUS DCP: PATIENT IS FROM HOME
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
--- NOTE | 2018-05-31 19:30 | NUR ---
NURSE NOTES: Pt advised to use call light for assistance if they would like to get out of bed. Pt verbalized understanding. Bed in lowest position with brake engaged, side rails up x3, and bed alarm on. Call light and side table placed within reach.
--- NOTE | 2018-05-31 19:35 | NUR ---
HAND-OFF: Report given to MELYSSA Lorenzo. Plan of care endorsed.
[2018-05-31 20:00] VITALS: BP 160/81
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
[2018-06-01] VITALS: BP 158/80
[2018-06-01 04:00] VITALS: BP 152/76
--- NOTE | 2018-06-01 07:39 | NUR ---
NURSE NOTES: Received report from Maura RAGSDALE. Pt sitting on side of bed eating breakfast. Pt on front desk monitor with no sign of distress. Bed locked and in lowest position. Pt AOx4. Call light within reach. Will continue plan of care.
[2018-06-01 08:00] VITALS: BP 153/76
[2018-06-01 09:20] LABS: BASOPHILS % (AUTO) 1.4 % (0.0-2.0); EOSINOPHILS % (AUTO) 4.6 % (0.0-3.0); HEMATOCRIT 33.9 % (37.0-47.0); HEMOGLOBIN 11.6 G/DL (12.0-16.0); LYMPHOCYTES % (AUTO) 34.4 % (20.0-45.0); MEAN CORPUSCULAR VOLUME 95 FL (80-99); MONOCYTES % (AUTO) 7.3 % (1.0-10.0); NEUTROPHILS % (AUTO) 52.3 % (45.0-75.0); PLATELET COUNT 258 K/UL (150-450); RED BLOOD COUNT 3.58 M/UL (4.20-5.40); RED CELL DISTRIBUTION WIDTH 13.4 % (11.6-14.8); WHITE BLOOD COUNT 3.6 K/UL (4.8-10.8)
[2018-06-01] MEDS: Sennosides 8.6mg tab ORAL SCH (09:20)
[2018-06-01] MEDS: Aspirin EC 81mg tab ORAL SCH (09:20)
[2018-06-01] MEDS: Docusate 100mg cap ORAL SCH (09:20)
[2018-06-01] MEDS: Metoprolol Succinate XL 50mg tab ORAL SCH (09:21)
[2018-06-01] MEDS: Heparin 5000 units/ml inj SUBQ SCH ×2 (09:24→20:54)
[2018-06-01] MEDS: cefTRIAXone 1 GM in NS 55 ML IVPB SCH (09:26)
[2018-06-01 09:42] LABS: ALANINE AMINOTRANSFERASE 17 U/L (12-78); ALBUMIN 2.4 G/DL (3.4-5.0); ALBUMIN/GLOBULIN RATIO 0.6 (1.0-2.7); ALKALINE PHOSPHATASE 62 U/L (46-116); ANION GAP 10 mmol/L (5-15); ASPARTATE AMINO TRANSFERASE 23 U/L (15-37); BILIRUBIN,TOTAL 0.3 MG/DL (0.2-1.0); BLOOD UREA NITROGEN 6 mg/dL (7-18); CARBON DIOXIDE 24 MMOL/L (21-32); CHLORIDE 108 MMOL/L (98-107); CREATININE 1.1 MG/DL (0.55-1.30); POTASSIUM 3.5 MMOL/L (3.5-5.1); SODIUM 142 MMOL/L (136-145)
--- NOTE | 2018-06-01 10:04 | Discharge Instructions ---
Discharge Instructions Discharge Instructions Follow up with: PCP and Dr. Linda Cm MD/Return to Hospital if: fevers, persistent nausea and vomiting, intractable pain Services at Discharge: home health services Diet: cardiac 2 GM Na, low fat Resume Normal Activity?: Yes Activity: as tolerated For Congestive Heart Failure Reminder Report to your physician any weight gain of 5 pounds or more in one week. Diane Deleon MD Jun 01, 2018 10:04
[2018-06-01 12:00] VITALS: BP 172/96
--- NOTE | 2018-06-01 14:10 | NUR ---
NURSE NOTES: Per doctor's Vuu indication pt's right arm was elevated either on 2 pillows or while she sits in bed on the side table. Pt moves all the time and does not keep arm elevated so R hand is very swollen. Will continue to monitor.
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
[2018-06-01 16:00] VITALS: BP 141/88
--- NOTE | 2018-06-01 16:48 | NUR ---
TRANSFER TO FLOOR: Patient transferred to [facility], per Dr. Venegas. Report given to Alona. Belongings and medications given to Alona. Family and or S/O informed of transfer. Pt. in no distress upon transfer.
[2018-06-01] MEDS ORDERED: traMADol 50mg tab ORAL PRN (16:49)
[2018-06-01] MEDS ORDERED: Methocarbamol 500mg tab ORAL PRN (16:49)
--- NOTE | 2018-06-01 16:50 | NUR ---
NURSE NOTES: patient transferred from tele. admitted [id number]. received report from MELYSSA judd. alert, verbally responsive. no respiratory distress noted. no c/o pain at this time. Iv on LFA ns 756ml/hr running. skin intact. comode on the bed side. bed in the lowest position . call light within reach. will continue to monitor.
--- NOTE | 2018-06-01 19:40 | NUR ---
HAND-OFF: Report given to MELYSSA George.
[2018-06-01 20:00] VITALS: BP 154/80
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
[2018-06-02] VITALS: BP 144/91
[2018-06-02 04:00] VITALS: BP 146/89
--- NOTE | 2018-06-02 06:53 | NUR ---
NURSE NOTES: RESTED WELL, NO SIGNIFICANT CHANGE OF CONDITION NOTED THROUGHOUT THE NIGHT. SAFETY MAINTAINED. NAD.
[2018-06-02 07:14] LABS: BASOPHILS % (AUTO) 1.6 % (0.0-2.0); EOSINOPHILS % (AUTO) 4.8 % (0.0-3.0); HEMATOCRIT 31.9 % (37.0-47.0); HEMOGLOBIN 10.8 G/DL (12.0-16.0); MEAN CORPUSCULAR VOLUME 93 FL (80-99); MONOCYTES % (AUTO) 10.1 % (1.0-10.0); NEUTROPHILS % (AUTO) 48.5 % (45.0-75.0); PLATELET COUNT 265 K/UL (150-450); RED BLOOD COUNT 3.44 M/UL (4.20-5.40); WHITE BLOOD COUNT 3.9 K/UL (4.8-10.8)
[2018-06-02 07:27] LABS: ANION GAP 8 mmol/L (5-15); BLOOD UREA NITROGEN 5 mg/dL (7-18); CALCIUM 8.6 MG/DL (8.5-10.1); CARBON DIOXIDE 25 MMOL/L (21-32); CHLORIDE 110 MMOL/L (98-107); CREATININE 1.1 MG/DL (0.55-1.30); POTASSIUM 3.6 MMOL/L (3.5-5.1); SODIUM 143 MMOL/L (136-145)
--- NOTE | 2018-06-02 07:45 | NUR ---
NURSE NOTES: Received patient A/A/Ox4, able to make things known. Pt is resting in bed in stable condition. BSC in use with assistance. Pt is on room air and breathing is even and unlabored. No acute resp distress noted. IV site is patent and intact. brace/ sling on right shoulder and kept elevated, appeared edematous. Right hand is mobilize and peripheral pulse palpated but weak. Bed is in lowest position and bed alarm is activated. side rails up x3, call light is within reach. Will continue to monitor.
[2018-06-02 08:00] VITALS: BP 147/74
--- NOTE | 2018-06-02 08:43 | NUR ---
CASE MANAGEMENT:REVIEW 06/02/18 SI: SEPSIS. UTI. RT HUMERUS FRACTURE 98.2 77 18 146/89 96% ON RA H/H-10.8/31.9 IS: IV ROCEPHIN Q24 ASA PO QD TOPROL XL PO QD HEPARIN SQ Q12 IVF@75/HR : NOW ON MED/SURG [facility]
[2018-06-02] MEDS ORDERED: Aspirin EC 81mg tab ORAL SCH (09:00)
[2018-06-02] MEDS ORDERED: Docusate 100mg cap ORAL SCH (09:00)
[2018-06-02] MEDS ORDERED: cefTRIAXone 1 GM in NS 55 ML IVPB SCH ×4 (09:00)
[2018-06-02] MEDS ORDERED: Sennosides 8.6mg tab ORAL SCH (09:00)
[2018-06-02] MEDS ORDERED: Metoprolol Succinate XL 50mg tab ORAL SCH (09:00)
[2018-06-02] MEDS: Heparin 5000 units/ml inj SUBQ SCH (09:08)
[2018-06-02 11:57] VITALS: BP 133/67
[2018-06-02] MEDS ORDERED: CEPHALEXIN500 MG ORAL (15:38)
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
--- NOTE | 2018-06-02 16:36 | NUR ---
NURSE NOTES: D/c home with instructions. personal belongings reviewed and noted. unable to sign papers. removed IV heplock. attempted to call [place], daughter and not able to leave vm. patient prefer to take the bus instead. In stable condition.
[2018-06-02] MEDS ORDERED: Cephalexin 500mg cap ORAL SCH (18:00)
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
== END 2018-06-02 16:06 | disposition home or self-care (01) | DRG 871 ==
LOC: EMR 23:18 → 2E 05-27 01:40 → EDBEDREQ 05-27 02:01 → 2E 05-27 02:47 → 4E 06-01 16:40
DX: A41.9 Sepsis, unspecified organism (principal); I21.4 Non-ST elevation (NSTEMI) myocardial infarction; N39.0 Urinary tract infection, site not specified; E87.1 Hypo-osmolality and hyponatremia; I10 Essential (primary) hypertension; Z88.0 Allergy status to penicillin; D64.9 Anemia, unspecified; S42.301D Unspecified fracture of shaft of humerus, right arm, subsequent encounter for fracture with routine healing; V89.2XXD Person injured in unspecified motor-vehicle accident, traffic, subsequent encounter; B96.20 Unspecified Escherichia coli [E. coli] as the cause of diseases classified elsewhere; G62.9 Polyneuropathy, unspecified; I27.20 Pulmonary hypertension, unspecified
CPT/HCPCS: 36415; 36600; 71045; 80048; 80053; 80200; 81003; 82550; 82553; 82803; 83605; 84484; 85025; 85610; 85730; 87040; 87086; 87181; 93005; 93306; 99291

== ENCOUNTER 2020-01-29 00:45 | Inpatient (IN) | payer MEDICARE, OTHER ==
[~2020-01-29] VITALS: Ht 154.9 cm; Wt 70.8 kg
[2020-01-29] VITALS (7 sets, daily range): BP systolic 97–177; BP diastolic 49–108
[~2020-01-29 00:45] MED LIST: ACETAMINOPHEN500 M3 ORAL; ASPIR 8181 MG ORAL; CEPHALEXIN500 MG ORAL; DOCUSATE SODIU100 MG ORAL; GABAPENTIN100 MG ORAL; IRON325 M1 PO; METHOCARBAMOL500 MG ORAL; METOPROLOL SUCC50 MG ORAL; TRAMADOL HCL50 MG ORAL; VITAMIN D250000 UNI1 ORAL
--- NOTE | 2020-01-29 00:54 | Emergency Room Report ---
History of Present Illness General Chief Complaint: Dyspnea/Respdistress Source: Patient, Medical Record, EMS Present Illness HPI This is an 84-year-old female with history of high blood pressure and asthma. She presents with complaint pressure distress. Family called 911 because she has difficulty breathing. Patient says been ongoing all day but worse tonight. There are smokers in the house. No fever or chills. No nausea no vomiting. Coughing but nonproductive in nature. Patient says she has pneumonia last year. Had negative Covid testing done 2 weeks ago. Denies any chest pain but has tightness because of the breathing problem. Per EMS, she was 94% on room air. Allergies: Coded Allergies: PENICILLINS (Verified Allergy, Unknown, 05/26/18) POTASSIUM (Verified Allergy, Unknown, 01/29/20) Patient History Past Medical History: see triage record, old chart reviewed, HTN, asthma Past Surgical History: other Pertinent Family History: none Social History: Denies: smoking Now: No Immunizations: other Reviewed Nursing Documentation: PMH: Agreed; PSxH: Agreed Nursing Documentation-PMH Hx Cardiac Problems: No Hx Hypertension: Yes Hx Cancer: No Hx Gastrointestinal Problems: Yes Hx Neurological Problems: No Review of Systems Eye: Denies: eye pain, blurred vision ENT: Denies: ear pain, nose congestion, throat swelling Respiratory: Reports: cough, shortness of breath Cardiovascular: Denies: chest pain, palpitations Gastrointestinal: Denies: abdominal pain, diarrhea, nausea, vomiting Musculoskeletal: Denies: back pain, joint pain Skin: Denies: rash Neurological: Denies: headache, numbness Endocrine: Denies: increased thirst, increased urine Hematologic/Lymphatic: Denies: easy bruising All Other Systems: negative except mentioned in HPI Physical Exam Vitals with tachycardia Sp02 EP Interpretation: reviewed, normal General Appearance: alert, moderate distress Head: normocephalic, atraumatic Eyes: bilateral eye PERRL, bilateral eye EOMI ENT: hearing grossly normal, normal pharynx Neck: full range of motion, supple, no meningismus Respiratory: chest non-tender, respiratory distress, decreased breath sounds, accessory muscle use Cardiovascular #1: regular rate, rhythm, no murmur Gastrointestinal: normal bowel sounds, non tender, no mass, no organomegaly, no bruit, non-distended Musculoskeletal: back normal, normal range of motion, gait/station normal Psychiatric: anxious Procedures Critical Care Time Critical Care Time Critical care is mandated in this patient who presented with respiratory failure secondary to Covid pneumonia. Patient require my urgent intervention to attenuate the risks of respiratory collapse which may lead to cardiovascular collapse and . Critical care time is 35 minutes excluding any reportable procedure. Critical care time included evaluation, multiple reevaluation, looking at old charts, interpreting laboratory and diagnostic data, discussing case with patient and family and consultants, and charting. Medical Decision Making Diagnostic Impression: Primary Impression: Acute respiratory failure due to COVID-19 Additional Impressions: Pneumonia due to COVID-19 virus CHF exacerbation Qualified Codes: I50.9 - Heart failure, unspecified Hypertension Qualified Codes: I10 - Essential (primary) hypertension ER Course This an 4-year-old female presents with respiratory distress. She is Covid positive. Her inflammatory markers are not significantly elevated. I suspect this is more of a CHF/cardiac issue. Chest x-ray showed more pulmonary edema rather than bilateral infiltrates. Antibiotics given. Oxygen given. She did not tolerate nonrebreather mask. Better with yes nasal cannula. She also received Lasix, antibiotics, steroid and Lovenox here. Will admit for further work-up. I discussed case with Dr. Botello for admission. EKG Diagnostic Results Troponin ordered: Yes Rate: normal, tachycardiac Rhythm: other - NSST changes Rhythm Strip Diag. Results EP Interpretation: yes Rate: 90 Rhythm: NSR, no PVC's Chest X-Ray Diagnostic Results Chest X-Ray Diagnostic Results : Chest X-Ray Ordered: Yes # of Views/Limited/Complete: 1 View Indication: Shortness of Breath EP Interpretation: Yes Interpretation: no effusion, no pneumothorax, other - b/l infiltrates; vasc congestion Impression: Other - infiltrates and vasc congestion Electronically Signed by: Vinh Guaman MD Status: improved Disposition: ADMITTED INPATIENT Condition: Serious Vinh Guaman MD Jan 29, 2020 00:54
[2020-01-29] MEDS ORDERED: Albuterol ud Inhalation HHN ONE (01:00)
[2020-01-29] MEDS ORDERED: dexAMETHasone 10mg/ml Inj IV ONE (01:00)
[2020-01-29] MEDS ORDERED: Ipratropium 0.02% Inh Soln 2.5ml UD HHN ONE (01:00)
--- NOTE | 2020-01-29 01:00 | NUR ---
ED Nurse Note: Patient brought into ED from home by GRACE RA 70 for SOB onset last night. Patient presents to ED with labored breathing, tachypneic and appears short of breath. Patient is continuously saying "I can't breathe". She is in tripod positon on edge of bed and is moderately anxious. Oxygen saturation was noted to be 93% on room air on scene per GRACE. Patient connected to campus monitor and HR noted to be tachycardiac as well. NAKIA bedside. She is aaox4, able to speak in 2-3 word sentences at this time. Patient is pulling at nonrebreather mask and also presents very restless. Patient is continuously taking off nonrebreather that was initially placed by NAKIA on arrival and placed on 2L oxygen via NC. She is tolerating NC well. She also has occasional cough with blood tinged sputum. No fever or pain noted. Patient properly placed into bed in high fowlers position with all safety measures met.
[2020-01-29] MEDS ORDERED: LORazepam Inj 2mg/ml 1ml ONE (01:14)
[2020-01-29] MEDS ORDERED: LORazepam Inj 2mg/ml 1ml IV ONE (01:15)
--- NOTE | 2020-01-29 01:15 | NUR ---
ED Nurse Note: RT bedside.
[2020-01-29 01:30] LABS: BASOPHILS % (AUTO) 1.7 % (0.0-2.0); EOSINOPHILS % (AUTO) 0.1 % (0.0-3.0); HEMATOCRIT 46.6 % (37.0-47.0); HEMOGLOBIN 15.1 G/DL (12.0-16.0); LYMPHOCYTES % (AUTO) 35.6 % (20.0-45.0); MEAN CORPUSCULAR VOLUME 103 FL (80-99); MONOCYTES % (AUTO) 13.2 % (1.0-10.0); NEUTROPHILS % (AUTO) 49.5 % (45.0-75.0); PLATELET COUNT 139 K/UL (150-450); RED BLOOD COUNT 4.53 M/UL (4.20-5.40); RED CELL DISTRIBUTION WIDTH 12.9 % (11.6-14.8); WHITE BLOOD COUNT 4.3 K/UL (4.8-10.8)
--- NOTE | 2020-01-29 01:30 | NUR ---
ED Nurse Note: Patient is tolerating 2L oxygen on NC well with stable oxygen saturation as documented. She is still breathing labored, but appears less anxious than original ED presentation and is no longer in tripod position or attempting to be in tripod position.
--- NOTE | 2020-01-29 01:40 | NUR ---
ED Nurse Note: Xray bedside.
[2020-01-29 01:44] LABS: ANION GAP 9 mmol/L (5-15); BLOOD UREA NITROGEN 23 mg/dL (7-18); CALCIUM 8.6 MG/DL (8.5-10.1); CARBON DIOXIDE 25 MMOL/L (21-32); CHLORIDE 103 MMOL/L (98-107); CREATININE 1.2 MG/DL (0.55-1.30); SODIUM 137 MMOL/L (136-145)
[2020-01-29 02:01] LABS: ALANINE AMINOTRANSFERASE 26 U/L (12-78); ALBUMIN 3.8 G/DL (3.4-5.0); ALKALINE PHOSPHATASE 75 U/L (46-116); ASPARTATE AMINO TRANSFERASE 48 U/L (15-37); BILIRUBIN,TOTAL 0.9 MG/DL (0.2-1.0); CKMB 2.7 NG/ML (0.0-3.6); CREATINE KINASE 89 U/L (26-308); FERRITIN 164 NG/ML (8-388); LACTATE DEHYDROGENASE 249 U/L (81-234)
[2020-01-29] MEDS ORDERED: Enoxaparin 60mg Inj SUBQ ONE (02:30)
[2020-01-29] MEDS ORDERED: Azithromycin 500 MG in NS 275 ML IV ONE (02:30)
[2020-01-29] MEDS ORDERED: cefTRIAXone 1 GM in NS 55 ML IVPB ONE (02:30)
--- NOTE | 2020-01-29 02:30 | NUR ---
ED Nurse Note: Patient is still slightly tachypneic at this time; tolerating nasal cannula well. She is no longer stating I can't breathe. HR is NSR WNL.
[2020-01-29 03:02] LABS: APPEARANCE,URINE CLEAR; BILIRUBIN, URINE NEGATIVE (NEGATIVE); COLOR,URINE PALE YELLOW; GLUCOSE, URINE (UA) NEGATIVE (NEGATIVE); KETONES,URINE NEGATIVE (NEGATIVE); LEUKOCYTE ESTERASE ,URINE NEGATIVE (NEGATIVE); NITRITE,URINE NEGATIVE (NEGATIVE); PH,URINE 6.5 (4.5-8.0); PROTEIN,URINE NEGATIVE (NEGATIVE); UROBILINOGEN,URINE NORMAL MG/DL (0.0-1.0)
--- NOTE | 2020-01-29 03:30 | NUR ---
ED Nurse Note: Patient is sleeping. She is breathing normal and unlabored, no signs of respiratory distress. Safety measures remain in place. Patient remains on 2L oxygen via NC.
--- NOTE | 2020-01-29 03:51 | NUR ---
ED Nurse Note: REPORT GIVEN TO MARY RAGSDALE. PATIENT TO BE ADMITTED TO TELE 2001- Addendum: 01/29/20 at 0353 by [facility] ED Nurse Note: REPORT GIVEN TO MARY RAGSDALE. PATIENT TO BE ADMITTED TO [facility] UNDER THE CARE OF FRANKLIN ESTRELLA
--- NOTE | 2020-01-29 04:00 | NUR ---
NURSE NOTES: Important Events on Shift: Received report from Enma Sandoval RN. Pt admitted to tele 2E for positive COVID-19 PNA per Pal. Pt is lethargic, not verbally responsive. Pt was given Ativan in ER and is no asleep. FLACC 0. Will continue to monitor. Will start plan of care. Patient Status: stable Diet: cardiac Pending Orders: none Pending Results/Labs: none Pending MD notification: none Latest Vital Signs: Temperature 98.1 , Pulse 94 , B/P 95/61, Respiratory Rate 24 , O2 SAT 100 , Nasal Cannula, O2 Flow Rate 2.0 . Vital Sign Comment: stable EKG Rhythm: Sinus Rhythm Rhythm change?: MD Notified?: - MD Response: Latest Live Fall Score: 35 Fall Risk: Medium Risk Safety Measures: Call light Within Reach, Bed Alarm , Side Rails Side Rails x3, Bed position Low and Locked. Fall Precautions: yes Yellow Socks yes Yellow Gown yes Door Sign yes Patient Fall Education yes Report given TBD.
--- NOTE | 2020-01-29 04:15 | NUR ---
ED Nurse Note: Patient taken to tele unit at this time. Patient is sleeping, no signs of distress. She is breathing normal and unlabored on 2L oxygen via NC with stable o2 saturation. Patient taken to unit via gurney while connected to court recording monitor by carmen and RN. COVID precuations taken. IV is patent. She took all belongings with her to floor. Vital signs are stable at this time as documented.
--- NOTE | 2020-01-29 07:15 | NUR ---
NURSE NOTES: Report received from Carol, Patient awake alert oriented x4. Able to make needs known. No SOB or distress. Call light in reach. Bed at lowest position locked with side rails up.
--- NOTE | 2020-01-29 07:22 | NUR ---
NURSE HAND-OFF REPORT: Important Events on Shift: Admitted to tele for COVID + PNA. Droplet and contact precautions in place. Pt in stable condtion, now A xO x 4. Patient Status: drowsy but stable rt ativan in ER. Diet: Pending Orders: none Pending Results/Labs: none Pending MD notification: none Latest Vital Signs: Temperature 98.5 , Pulse 78 , B/P 107 /55 , Respiratory Rate 20 , O2 SAT 98 , Nasal Cannula, O2 Flow Rate 2.0 . Vital Sign Comment: EKG Rhythm: Sinus Rhythm Rhythm change?: MD Notified?: - MD Response: Latest Live Fall Score: 35 Fall Risk: Medium Risk Safety Measures: Call light Within Reach, Bed Alarm , Side Rails Side Rails x3, Bed position Low and Locked. Fall Precautions: YES Yellow Socks YES Yellow Gown YES Door Sign YES Patient Fall Education YES Report given to Carol Conte RN.
--- NOTE | 2020-01-29 07:23 | NUR ---
NURSE NOTES: Received patient in bed aslee. O2 via NC at 2LPM in place, no SOB or acute distress. IV line intact and patent. FC intact, draining yellow colored urine. HOB elevated. Bed locked in low position. Call light within reach. Will continue plan of care.
--- NOTE | 2020-01-29 10:44 | NUR ---
NURSE NOTES: Trop 0.081, Dr Aguillon aware, orders noted and carried out.
--- NOTE | 2020-01-29 13:00 | Consultation ---
DATE OF CONSULTATION: 01/29/2020 INFECTIOUS DISEASE CONSULTATION CONSULTING PHYSICIAN: Carla Elizabeth MD. REFERRING PHYSICIAN: Parag Aguillon MD. REASON FOR CONSULTATION: COVID-19 pneumonia. HISTORY OF PRESENTING ILLNESS: This is an 84-year-old lady with history of hypertension and asthma, who comes in with cough along with shortness of breath. She denies any fever or chills. She was found to be COVID-19 positive and an Infectious Diseases consultation has been obtained for antibiotics. PAST MEDICAL HISTORY: 1. History of hypertension. 2. History of asthma. SOCIAL HISTORY: She does not smoke. She drinks alcohol socially. No history of drug use. FAMILY HISTORY: Noncontributory. REVIEW OF SYSTEMS: RESPIRATORY: No fever or chills. She has cough. She has shortness of breath. No chest pain. CARDIAC: No chest pain. No palpitation. No dizziness. No syncope. GASTROINTESTINAL: No nausea. No vomiting. No abdominal pain or diarrhea. MEDICATIONS: As an inpatient, she is on metoprolol, aspirin, Protonix, Lovenox, dexamethasone, furosemide, ferrous sulfate, docusate, gabapentin, ergocalciferol, Mylanta, Tylenol, Zofran. ALLERGIES: To penicillin noted as well as potassium. PHYSICAL EXAMINATION: VITAL SIGNS: Temperature 97.7, T-max of 98.5, pulse 123, respiratory rate 20, blood pressure 120/70. O2 saturation of 97% on 2 liters of oxygen. Examination deferred due to COVID-19. LABORATORY DATA: White count 4.3, hemoglobin 15.1, hematocrit 46.6, MCV 103, platelet count of 139,000 with neutrophils of 49%. Sodium 137, potassium 4, chloride 103, bicarb 25, BUN 23, creatinine 1.2. Glucose 133. Calcium 8.6. Ferritin 164. Total bilirubin 0.9, AST 48, ALT 26, alkaline phosphatase 75. LDH 249. CK 89, CK-MB 2.7. Troponin 0.008. C-reactive protein 1.9. Beta-natriuretic peptide more than 35,000. Total protein 7.5, albumin 3.8. Lipase of 222. UA is showing LE negative. COVID-19 test is positive. ASSESSMENT: This is an 84-year-old lady with history of hypertension and asthma, who comes in with cough and shortness of breath and is found to have, 1. COVID-19 pneumonia. She is on 2 liters of oxygen with 97% O2 saturation. 2. Hypertension. 3. Asthma. PLAN: 1. She has been started on Decadron day #1. 2. We will start the patient on Remdesivir. The patient agrees to it. 3. Continue isolation. 4. We will follow up the patient clinically. I would like to thank Dr. Aguillon for this consultation. Carla Elizabeth M.D. DR: LITA JOB#: [id number] CC:
--- NOTE | 2020-01-29 13:04 | Cardiology Report ---
APPROVED REPORT EXAM: Two-dimensional and M-mode echocardiogram with Doppler and color Doppler. INDICATION Tachycardia M-Mode DIMENSIONS IVSd1.2 (0.7-1.1cm)Left Atrium (MM)3.6 (1.6-4.0cm) LVDd6.3 (3.5-5.6cm)Aortic Root3.1 (2.0-3.7cm) PWd1.2 (0.7-1.1cm)Aortic Cusp Exc.1.7 (1.5-2.0cm) IVSs1.1 cmEPSS1.7 (>1.0cm) LVDs4.9 (2.5-4.0cm) PWs2.7 cm <Conclusion> Limited 2D Echo study due to poor acoustical windows. Normal left ventricular chamber size. Global left ventricular hypokinesis. Basal to mid inferoseptal as well as posterior wall akinesis . Left ventricular ejection fraction estimated to be 25-30 %. Increased E point-interventricular septal separation c/w left ventricular dysfunction. Mild left ventricular hypertrophy. No evidence of pericardial effusion. Mild left atrial enlargement. Right chamber sizes are within normal limits. Moderate focal aortic valve sclerosis with adequate cusp excursion. Thickened mitral valve leaflets with normal excursion. Mitral annulus and aortic root calcification. Normal tricuspid valve structure. Pulmonic valve not visualized. Subcostal views unobtainable. A color flow and spectral Doppler study was performed and revealed: Mild aortic regurgitation. Mild mitral regurgitation. Mitral diastolic velocities suggest reduced left ventricular relaxation c/w mild diastolic dysfunction (Grade I). Mild tricuspid regurgitation. Tricuspid systolic velocities suggests peak right ventricular systolic pressure of 29 mmHg.
--- NOTE | 2020-01-29 13:39 | NUR ---
RADIOLOGY DEPT., CHEST X-RAY DONE.-P.DYE
[2020-01-29] MEDS: Vitamin D 50,000 units cap ORAL SCH (14:03)
--- NOTE | 2020-01-29 15:16 | Diagnostic Imaging Report ---
Indication: Cough Technique: One view of the chest Comparison: 01/29/2020 Findings: Retrocardiac opacity and lucency likely reflect a hiatal hernia. There is a left pleural effusion. Stable or slightly improved interstitial congestive changes are noted. Impression: Single slightly improved interstitial congestion Unchanged left pleural effusion
--- NOTE | 2020-01-29 16:29 | Diagnostic Imaging Report ---
Indication: Shortness of breath Technique: One view of the chest Comparison: 05/26/2018 Findings: There is bilateral interstitial and airspace edema. There are probably small bilateral pleural effusions. The heart is borderline enlarged. The aorta is tortuous deltoid. Impression: Cardiomegaly with bilateral interstitial and airspace edema and probable small bilateral pleural effusions
[2020-01-29] MEDS ORDERED: Cephalexin 500mg cap ORAL SCH (18:00)
[2020-01-29] MEDS: Docusate 100mg cap ORAL SCH (18:22)
--- NOTE | 2020-01-29 19:16 | NUR ---
NURSE HAND-OFF REPORT: Important Events on Shift:transferred to [facility]. On troponin q8 x3, 1st sample sent to lab around 1830. Patient Status: alert Diet: cardiac Pending Orders: Pending Results/Labs: Pending MD notification: Latest Vital Signs: Temperature 97.5 , Pulse 85 , B/P 111 /68 , Respiratory Rate 20 , O2 SAT 97 , Nasal Cannula, O2 Flow Rate 2.0 . Vital Sign Comment: EKG Rhythm: Sinus Rhythm Rhythm change?: N MD Notified?: - MD Response: Latest Live Fall Score: 35 Fall Risk: Medium Risk Safety Measures: Call light Within Reach, Bed Alarm Zone 1, Side Rails Side Rails x2, Bed position Low and Locked. Fall Precautions: Yellow Socks Report given to Jessenia RAGSDALE.
[2020-01-29] MEDS ORDERED: Loading Dose:Remdesivir 200mg/NS 210ml IV SCH ×2 (21:00)
[2020-01-30] VITALS: BP 124/76
--- NOTE | 2020-01-30 01:59 | Consultation ---
DATE OF CONSULTATION: 01/29/2020 CARDIOLOGY CONSULTATION CONSULTING PHYSICIAN: Estiven Xavier MD. REFERRING PHYSICIAN: Parag Aguillon MD. REASON FOR CONSULTATION: Acute myocardial infarction in the setting of COVID-19 pneumonia. HISTORY OF PRESENT ILLNESS: This is an 84-year-old female. She has a history of hypertension and asthma. She has had increasing shortness of breath with significant respiratory distress noted by family this afternoon. The family contacted paramedics. She was found to have respiratory distress and an oxygen saturation of 94% on room air. She was brought into the emergency room. There diagnostic workup was undertaken with abnormal troponin levels and a positive COVID-19 swab obtained. Of note, the patient had a negative COVID swab two weeks ago. PAST MEDICAL HISTORY: Hypertension, asthma. ALLERGIES: Include penicillin, questionable . FAMILY HISTORY: Noncontributory. SOCIAL HISTORY: Significant for secondhand smoke exposure. No alcohol or substance abuse. MEDICATIONS: Prior to admission, reviewed and reconciled. REVIEW OF SYSTEMS: She has had congestion and cough and shortness of breath. No loss of vision or hearing. No chest pain or palpitations. No leg swelling. No back pain. No history of diabetes or thyroid disorder. No history of seizure or stroke. PHYSICAL EXAMINATION: VITAL SIGNS: Blood pressure 177/108 with a heart rate 110, respiratory rate of 24 on arrival. Subsequently, blood pressure dropped to 97/55 with heart rate of 95, respiratory rate 20. The patient was afebrile. Oxygen saturation on 2 liters has been around 99%. HEENT: Oropharynx clear. NECK: Accessory muscle use. LUNGS: With rales. CARDIAC: Regular rhythm. Rapid rate. Normal S1, S2. No appreciable murmur. ABDOMEN: Soft. EXTREMITIES: With trace edema. Exam is limited due to COVID-19 exposure risk. LABORATORY AND DIAGNOSTIC DATA: EKG, sinus tachycardia with nonspecific ST-T wave changes. Chest x-ray revealed bilateral infiltrates and pulmonary venous congestion. Laboratory, sodium 137, potassium 4, bicarb 25, BUN 23, creatinine 1.2. Troponin 0.1. Pro-natriuretic peptide 35,000. White count 4.3, hemoglobin 15.1. Urinalysis no active sediment. IMPRESSION: 1. COVID-19 pneumonia. 2. Hypoxia. 3. Acute myocardial ischemia and possible non-ST elevation infarction. 4. Acute diastolic and systolic congestive heart failure. 5. Sinus tachycardia. 6. History of asthma with no active bronchospasm. 7. Condition critical. Prognosis guarded. PLAN: Cardiac monitoring. Nasal oxygen. Diuresis. Beta-concepcion, anti-platelet therapy. Steroids per brusher operator. Full anticoagulation in view of COVID-19 infection. Antiviral therapy per Infectious Disease project consultant. We will need close monitoring and titration of regimen on a regular basis. Estiven Xavier M.D. DR: LESLIE JOB#: [id number] CC:
[2020-01-30 04:00] VITALS: BP 117/71
[2020-01-30 07:22] LABS: HEMATOCRIT 41.5 % (37.0-47.0); HEMOGLOBIN 13.8 G/DL (12.0-16.0); MEAN CORPUSCULAR VOLUME 101 FL (80-99); PLATELET COUNT 100 K/UL (150-450); RED BLOOD COUNT 4.11 M/UL (4.20-5.40); RED CELL DISTRIBUTION WIDTH 12.9 % (11.6-14.8); WHITE BLOOD COUNT 2.9 K/UL (4.8-10.8)
[2020-01-30 07:42] LABS: ALBUMIN 2.9 G/DL (3.4-5.0); ALBUMIN/GLOBULIN RATIO 0.9 (1.0-2.7); BILIRUBIN,TOTAL 0.2 MG/DL (0.2-1.0); CALCIUM 8.1 MG/DL (8.5-10.1); CREATININE 1.1 MG/DL (0.55-1.30); POTASSIUM 4.1 MMOL/L (3.5-5.1)
[2020-01-30 08:00] VITALS: BP 102/69
--- NOTE | 2020-01-30 08:13 | NUR ---
NURSE NOTES: Received report from Jessenia Lius RN. Patient in semi Worthy's position, awake and alert, gave breakfast to patient, bed in lowest position, call light within reach, on 2 liters nasal cannula, in no apparent distress.
--- NOTE | 2020-01-30 08:22 | NUR ---
HAND-OFF: Report given to Michael, RN Endorsed plan of care. Patient awake alert and oriented x4 remains at baseline.
--- NOTE | 2020-01-30 08:30 | History and Physical Report ---
DATE OF ADMISSION: 01/29/2020 REASON FOR ADMISSION: CHF, COVID positive. HISTORY OF PRESENT ILLNESS: This is an 84-year-old female brought into the emergency room. The patient was noted to be increasingly short of breath. The patient has history of asthma. The patient was brought in by 911, coughing nonproductive. On oxygen, the patient was noted to be stable. Currently, the patient is comfortable, in no significant distress. The patient did have rapid swab, which was positive. The patient is currently in isolation. PAST MEDICAL HISTORY: Notable for CHF, hypertension, asthma. MEDICATIONS: Reviewed. ALLERGIES: Reviewed. SOCIAL HISTORY: Nonsmoker and nondrinker. The patient lives with family. REVIEW OF SYSTEMS: Otherwise negative. PHYSICAL EXAMINATION: GENERAL: A well-developed female, comfortable at present, in no significant distress. VITAL SIGNS: Reviewed. O2 saturation 98% on 2 L, blood pressure stable temperature 98.5. HEENT: Negative. NECK: Supple. No adenopathy. LUNGS: Moderate breath sounds CARDIAC: S1 and S2. Regular rate and rhythm. ABDOMEN: Soft, nontender. EXTREMITIES: no edema. LABORATORY DATA: all reviewed. CBC essentially negative. Chemistry is fairly negative. BUN 23, creatinine is 1.2. Troponin 0.1. BNP greater than 35,000. IMPRESSION: Congestive heart failure, hypertension, asthma, COVID positive, mild hypoxemia, mild azotemia, pneumonia. RECOMMENDATION: Isolation. Diuretics. Cardiology and ID to see. Monitor EKG. Monitor troponin with slight elevation. Monitor natriuretic peptide. monitor clinically. Obtain echocardiogram. We will follow with further changes in interventions, stabilize, and discharge home. Parag Aguillon M.D. DR: YANI JOB#: [id number] CC: CORA
[2020-01-30 08:32] LABS: CHOLESTEROL 158 MG/DL (< 200); HDL CHOLESTEROL 58 MG/DL (40-60); TRIGLYCERIDES 63 MG/DL (30-150)
[2020-01-30] MEDS: Metoprolol Succinate XL 50mg tab ORAL SCH (09:00)
[2020-01-30] MEDS: dexAMETHasone 10mg/ml Inj IV SCH (09:49)
[2020-01-30] MEDS: Aspirin Baby 81mg ORAL SCH (09:50)
[2020-01-30] MEDS: Docusate 100mg cap ORAL SCH ×2 (09:50→17:23)
[2020-01-30] MEDS: Enoxaparin 40mg Inj SUBQ SCH (09:50)
--- NOTE | 2020-01-30 11:18 | Infectious Diseases Prog Note ---
Assessment/Plan Assessment/Plan antibiotics : remdesivir 01.29.20 - A 1. COVID-19 pneumonia. on 2 liters of oxygen with 97% O2 saturation. 2. Hypertension. 3. Asthma. 4. CHF P 1. continue Decadron day #2. 2. continue Remdesivir day 2 3. Continue isolation. Subjective Constitutional: Denies: fever, chills Respiratory: Reports: productive cough - with blood; Denies: shortness of breath Gastrointestinal/Abdominal: Denies: nausea, vomiting, diarrhea Musculoskeletal: Denies: pain Allergies: Coded Allergies: PENICILLINS (Verified Allergy, Unknown, 05/26/18) POTASSIUM (Verified Allergy, Unknown, 01/29/20) Objective Last 24 Hour Vital Signs Date Time Temp Pulse Resp B/P (MAP) Pulse Ox O2 Delivery O2 Flow Rate FiO2 01/30/20 09:00 63 102/69 01/30/20 08:00 96.8 63 18 102/69 (80) 100 01/30/20 08:00 64 01/30/20 04:00 78 01/30/20 04:00 97.8 75 18 117/71 (86) 100 01/30/20 00:00 97.7 73 20 124/76 (92) 94 01/30/20 00:00 79 01/29/20 21:00 Nasal Cannula 2.0 01/29/20 20:00 97.4 84 20 116/73 (87) 97 01/29/20 20:00 76 01/29/20 16:00 85 01/29/20 16:00 97.5 85 20 111/68 (82) 97 01/29/20 12:00 97.5 96 20 116/62 (80) 97 Height (Feet): 5 Height (Inches): 1.00 Weight (Pounds): 156 Microbiology Date/Time Source Procedure Growth Status 01/29/20 01:55 Nasopharynx SARS-CoV-2 RdRp Gene Assay - Final Complete 01/29/20 00:50 Blood Blood Culture - Preliminary NO GROWTH AFTER 24 HOURS Resulted 01/29/20 00:35 Blood Blood Culture - Preliminary NO GROWTH AFTER 24 HOURS Resulted Laboratory Tests Test 01/29/20 18:40 01/30/20 06:44 Troponin I 0.074 ng/mL (0.000-0.056) 0.070 ng/mL (0.000-0.056) White Blood Count 2.9 K/UL (4.8-10.8) L Red Blood Count 4.11 M/UL (4.20-5.40) L Hemoglobin 13.8 G/DL (12.0-16.0) Hematocrit 41.5 % (37.0-47.0) Mean Corpuscular Volume 101 FL (80-99) H Mean Corpuscular Hemoglobin 33.5 PG (27.0-31.0) H Mean Corpuscular Hemoglobin Concent 33.2 G/DL (32.0-36.0) Red Cell Distribution Width 12.9 % (11.6-14.8) Platelet Count 100 K/UL (150-450) L Mean Platelet Volume 11.3 FL (6.5-10.1) H Neutrophils (%) (Auto) % (45.0-75.0) Lymphocytes (%) (Auto) % (20.0-45.0) Monocytes (%) (Auto) % (1.0-10.0) Eosinophils (%) (Auto) % (0.0-3.0) Basophils (%) (Auto) % (0.0-2.0) Differential Total Cells Counted 100 Neutrophils % (Manual) 50 % (45-75) Lymphocytes % (Manual) 39 % (20-45) Monocytes % (Manual) 11 % (1-10) H Eosinophils % (Manual) 0 % (0-3) Basophils % (Manual) 0 % (0-2) Band Neutrophils 0 % (0-8) Platelet Estimate Decreased L Platelet Morphology Normal Macrocytosis 1+ Sodium Level 141 MMOL/L (136-145) Potassium Level 4.1 MMOL/L (3.5-5.1) Chloride Level 107 MMOL/L (98-107) Carbon Dioxide Level 27 MMOL/L (21-32) Anion Gap 7 mmol/L (5-15) Blood Urea Nitrogen 30 mg/dL (7-18) H Creatinine 1.1 MG/DL (0.55-1.30) Estimat Glomerular Filtration Rate 47.6 mL/min (>60) Glucose Level 88 MG/DL (74-106) Calcium Level 8.1 MG/DL (8.5-10.1) L Magnesium Level 1.8 MG/DL (1.8-2.4) Total Bilirubin 0.2 MG/DL (0.2-1.0) Direct Bilirubin 0.1 MG/DL (0.0-0.3) Aspartate Amino Transf (AST/SGOT) 26 U/L (15-37) Alanine Aminotransferase (ALT/SGPT) 6 U/L (12-78) L Alkaline Phosphatase 55 U/L (46-116) Pro-B-Type Natriuretic Peptide 83930 pg/mL (0-125) H Total Protein 6.0 G/DL (6.4-8.2) L Albumin 2.9 G/DL (3.4-5.0) L Globulin 3.1 g/dL Albumin/Globulin Ratio 0.9 (1.0-2.7) L Triglycerides Level 63 MG/DL (30-150) Cholesterol Level 158 MG/DL (< 200) LDL Cholesterol 81 mg/dL (<100) HDL Cholesterol 58 MG/DL (40-60) Cholesterol/HDL Ratio 2.7 (3.3-4.4) L Thyroid Stimulating Hormone (TSH) 1.438 uiU/mL (0.358-3.740) Current Medications Medications (Trade) Dose Ordered Sig/Leslie Route PRN Reason Start Time Stop Time Status Last Admin Dose Admin Acetaminophen (Tylenol) 650 mg Q4H PRN ORAL Mild Pain (Pain Scale 1-3) 01/29/20 09:45 02/28/20 09:44 Al Hydroxide/Mg Hydroxide (Mylanta) 30 ml EVERY 4 HOURS PRN ORAL upset stomach 01/29/20 09:45 02/28/20 09:44 01/29/20 14:08 Aspirin (ASA) 81 mg DAILY ORAL 01/30/20 09:00 03/15/20 08:59 01/30/20 09:50 Dexamethasone Sodium Phosphate (Decadron 10mg/ ml Inj) 6 mg DAILY IV 01/30/20 09:00 02/08/20 08:59 01/30/20 09:49 Docusate Sodium (Colace) 100 mg TWICE A DAY ORAL 01/29/20 18:00 02/28/20 17:59 01/30/20 09:50 Enoxaparin Sodium (Lovenox) 40 mg DAILY SUBQ 01/30/20 09:00 04/29/20 08:59 01/30/20 09:50 Ergocalciferol (Drisdol) 50,000 intlu ONCE A WEEK ORAL 01/29/20 12:00 02/28/20 11:59 01/29/20 14:03 Ferrous Sulfate (Feosol) 325 mg BID ORAL 01/29/20 18:00 04/28/20 17:59 01/30/20 09:51 Furosemide (Lasix) 40 mg DAILY IV 01/30/20 09:00 02/29/20 08:59 01/30/20 09:49 Gabapentin (Neurontin) 100 mg THREE TIMES A DAY ORAL 01/29/20 13:00 02/28/20 12:59 01/30/20 09:52 Metoprolol Succinate (Toprol XL) 50 mg DAILY ORAL 01/30/20 09:00 04/29/20 08:59 Pantoprazole (Protonix) 40 mg DAILY ORAL 01/30/20 09:00 02/29/20 08:59 01/30/20 09:50 Remdesivir 100 mg/ Sodium Chloride 250 ml @ 250 mls/hr Q24H IV 01/30/20 21:00 02/02/20 21:59 Carla Elizabeth MD Jan 30, 2020 11:18
[2020-01-30 12:00] VITALS: BP 102/69
--- NOTE | 2020-01-30 12:54 | Pulmonology Progress Note ---
Subjective Constitutional: Denies: fever, chills Gastrointestinal/Abdominal: Denies: nausea, vomiting, diarrhea Musculoskeletal: Denies: pain Allergies: Coded Allergies: PENICILLINS (Verified Allergy, Unknown, 05/26/18) POTASSIUM (Verified Allergy, Unknown, 01/29/20) Subjective comfortable notes she needs placement but does not want SNF Objective Last 24 Hour Vital Signs Date Time Temp Pulse Resp B/P (MAP) Pulse Ox O2 Delivery O2 Flow Rate FiO2 01/30/20 12:00 98.1 67 18 102/69 (80) 100 01/30/20 09:00 63 102/69 01/30/20 08:00 96.8 63 18 102/69 (80) 100 01/30/20 08:00 64 01/30/20 04:00 78 01/30/20 04:00 97.8 75 18 117/71 (86) 100 01/30/20 00:00 97.7 73 20 124/76 (92) 94 01/30/20 00:00 79 01/29/20 21:00 Nasal Cannula 2.0 01/29/20 20:00 97.4 84 20 116/73 (87) 97 01/29/20 20:00 76 01/29/20 16:00 85 01/29/20 16:00 97.5 85 20 111/68 (82) 97 Intake and Output 01/29/20 01/30/20 18:59 06:59 Intake Total 236 ml Output Total 1300 ml 600 ml Balance -1064 ml -600 ml Intake Oral 236 ml Output Urine Total 1300 ml 600 ml # Voids 1 2 Objective deferred due to COVID Microbiology Date/Time Source Procedure Growth Status 01/29/20 01:55 Nasopharynx SARS-CoV-2 RdRp Gene Assay - Final Complete 01/29/20 00:50 Blood Blood Culture - Preliminary NO GROWTH AFTER 24 HOURS Resulted 01/29/20 00:35 Blood Blood Culture - Preliminary NO GROWTH AFTER 24 HOURS Resulted Laboratory Tests 01/29/20 18:40: Troponin I 0.074H 01/30/20 06:44: Troponin I 0.070H, White Blood Count 2.9L, Red Blood Count 4.11L, Hemoglobin 13.8, Hematocrit 41.5, Mean Corpuscular Volume 101H, Mean Corpuscular Hemoglobin 33.5H, Mean Corpuscular Hemoglobin Concent 33.2, Red Cell Distribution Width 12.9, Platelet Count 100L, Mean Platelet Volume 11.3H, Neutrophils (%) (Auto) , Lymphocytes (%) (Auto) , Monocytes (%) (Auto) , Eosinophils (%) (Auto) , Basophils (%) (Auto) , Differential Total Cells Counted 100, Neutrophils % (Manu al) 50, Lymphocytes % (Manual) 39, Monocytes % (Manual) 11H, Eosinophils % (Manual) 0, Basophils % (Manual) 0, Band Neutrophils 0, Platelet Estimate DecreasedL, Platelet Morphology Normal, Macrocytosis 1+, Sodium Level 141, Potassium Level 4.1, Chloride Level 107, Carbon Dioxide Level 27, Anion Gap 7, Blood Urea Nitrogen 30H, Creatinine 1.1, Estimat Glomerular Filtration Rate 47.6, Glucose Level 88, Calcium Level 8.1L, Magnesium Level 1.8, Total Bilirubin 0.2, Direct Bilirubin 0.1, Aspartate Amino Transf (AST/SGOT) 26, Alanine Aminotransferase (ALT/SGPT) 6L, Alkaline Phosphatase 55, Pro-B-Type Natriuretic Peptide 97849C, Total Protein 6.0L, Albumin 2.9L, Globulin 3.1, Albumin/Globulin Ratio 0.9L, Triglycerides Level 63, Cholesterol Level 158, LDL Cholesterol 81, HDL Cholesterol 58, Cholesterol/HDL Ratio 2.7L, Thyroid Stimulating Hormone (TSH) 1.438 Current Medications Medications (Trade) Dose Ordered Sig/Leslie Route PRN Reason Start Time Stop Time Status Last Admin Dose Admin Acetaminophen (Tylenol) 650 mg Q4H PRN ORAL Mild Pain (Pain Scale 1-3) 01/29/20 09:45 02/28/20 09:44 Al Hydroxide/Mg Hydroxide (Mylanta) 30 ml EVERY 4 HOURS PRN ORAL upset stomach 01/29/20 09:45 02/28/20 09:44 01/29/20 14:08 Aspirin (ASA) 81 mg DAILY ORAL 01/30/20 09:00 03/15/20 08:59 01/30/20 09:50 Dexamethasone Sodium Phosphate (Decadron 10mg/ ml Inj) 6 mg DAILY IV 01/30/20 09:00 02/08/20 08:59 01/30/20 09:49 Docusate Sodium (Colace) 100 mg TWICE A DAY ORAL 01/29/20 18:00 02/28/20 17:59 01/30/20 09:50 Enoxaparin Sodium (Lovenox) 40 mg DAILY SUBQ 01/30/20 09:00 04/29/20 08:59 01/30/20 09:50 Ergocalciferol (Drisdol) 50,000 intlu ONCE A WEEK ORAL 01/29/20 12:00 02/28/20 11:59 01/29/20 14:03 Ferrous Sulfate (Feosol) 325 mg BID ORAL 01/29/20 18:00 04/28/20 17:59 01/30/20 09:51 Furosemide (Lasix) 40 mg DAILY IV 01/30/20 09:00 02/29/20 08:59 01/30/20 09:49 Gabapentin (Neurontin) 100 mg THREE TIMES A DAY ORAL 01/29/20 13:00 02/28/20 12:59 01/30/20 12:47 Metoprolol Succinate (Toprol XL) 50 mg DAILY ORAL 01/30/20 09:00 04/29/20 08:59 Pantoprazole (Protonix) 40 mg DAILY ORAL 01/30/20 09:00 02/29/20 08:59 01/30/20 09:50 Remdesivir 100 mg/ Sodium Chloride 250 ml @ 250 mls/hr Q24H IV 01/30/20 21:00 02/02/20 21:59 Assessment/Plan Assessment/Plan Congestive heart failure, hypertension, asthma, COVID positive, mild hypoxemia, mild azotemia, pneumonia. PLAN isolation ID clearance diurese monitor imaging oxygen as needed nontoxic placement impression, plan, and exam edited and reviewed in detail care discussed with Parag De Guzman MD Jan 30, 2020 12:54
--- NOTE | 2020-01-30 12:54 | NUR ---
CASE MANAGEMENT:REVIEW 01/30/20 SI: KASHIF PNA. CHF EXACERBATION 96.8 63 18 102/69 100% ON 2L/NC WBC-2.9 PLT-100 BUN+30 TROPONIN(+) 0.070 IS: IV REMDESIVIR Q24HRS (DAY 2/5) IV DECADRON Q24 IV LASIX Q24 LOVENOX SQ QD TOPROL XL PO QD (HELD) ASA PO QD PROTONIX SQ QD : TELEMETRY STATUS DCP: FROM HOME
--- NOTE | 2020-01-30 12:55 | Cardiology Report ---
APPROVED REPORT EKG Measurement Heart [id number] <Conclusion> Sinus rhythm with occasional premature ventricular complexes Anterior infarct, age undetermined Abnormal ECG
[2020-01-30 16:00] VITALS: BP 113/69
--- NOTE | 2020-01-30 19:05 | NUR ---
NURSE NOTES: RECEIVED REPORT FROM MELYSSA WOODALL. PATIENT AAOX4, VERBALLY RESPONSIVE AND ABLE TO MAKE NEEDS KNOWN. NO COMPLAINTS OF PAIN OR DISCOMFORT NOTED AT THIS TIME. BREATHING EVEN AND UNLABORED ON 2LPM VIA NC, NO S/SX OF DISTRESS NOTED- RR 18, SAO2 99% ON CURRENT SETTINGS. IV SITE ON RIGHT HAND PATENT, INTACT, ASYMPTOMATIC, AND SALINE-LOCKED. FALL AND ASPIRATION PRECAUTIONS IN PLACE. BED LOCKED AND IN LOWEST POSITION, SIDERAILS UP X 3. CALL LIGHT WITHIN REACH, WILL CONTINUE TO MONITOR PER POC. Addendum: 01/30/20 at 1944 by Sayda Montelongo RN HUBBARD CATHETER DRAINING WELL TO GRAVITY, URINE CLEAR AND YELLOW IN COLOR
--- NOTE | 2020-01-30 19:38 | NUR ---
NURSE HAND-OFF REPORT: Important Events on Shift:Patient alert and oriented, Troponin=0.07 trending down. Patient Status: Stable Diet: Cardiac Pending Orders: N/A Pending Results/Labs:N/A Pending MD notification:N/A Latest Vital Signs: Temperature 96.8 , Pulse 86 , B/P 113 /69 , Respiratory Rate 20 , O2 SAT 100 , Nasal Cannula, O2 Flow Rate 2.0 . Vital Sign Comment: Stable EKG Rhythm: Sinus Rhythm Rhythm change?: N MD Notified?: - MD Response: Latest Live Fall Score: 35 Fall Risk: Medium Risk Safety Measures: Call light Within Reach, Bed Alarm Zone 1, Side Rails Side Rails x2, Bed position Low and Locked. Fall Precautions: Yellow Socks Report given to Sayda Menchaca RN.
[2020-01-30 20:00] VITALS: BP 113/70
[2020-01-30] MEDS: Maintenance Dose:Remdesivir 100mg/NS 230ml x 4 Doses IV SCH ×2 (20:53)
[2020-01-31] VITALS: BP 99/67
[2020-01-31 04:00] VITALS: BP 107/73
--- NOTE | 2020-01-31 06:45 | NUR ---
NURSE NOTES: INFORMED OMI FROM LAB THAT AM LABS STILL NEED TO BE DRAWN- ACKNOWLEDGED.
--- NOTE | 2020-01-31 07:40 | NUR ---
NURSE HAND-OFF REPORT: Important Events on Shift: N/A; PATIENT REMAINS STABLE Patient Status: STABLE Diet: CARDIAC Pending Orders: N/A Pending Results/Labs: AM LABS Pending MD notification:N/A Latest Vital Signs: Temperature 97.7 , Pulse 65 , B/P 107 /73 , Respiratory Rate 20 , O2 SAT 95 , Nasal Cannula, O2 Flow Rate 2.0 . Vital Sign Comment: STABLE EKG Rhythm: Sinus Rhythm Rhythm change?: N MD Notified?: - MD Response: Latest Live Fall Score: 35 Fall Risk: Medium Risk Safety Measures: Call light Within Reach, Bed Alarm Zone 1, Side Rails Side Rails x2, Bed position Low and Locked. Fall Precautions: Yellow Socks Report given to MELYSSA AVERY.
[2020-01-31 08:00] VITALS: BP 108/67
--- NOTE | 2020-01-31 08:02 | NUR ---
NURSE NOTES: Report received from Sayda RAGSDALE. Patient seen on rounds, awake and up in bed. O2 @ 2lpm via NC, no signs of distress. Afebrile. SR on tele monitor. 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 PIV on right hand patent and intact. Loco cath secured and draining well. Isolation precautions maintained. Bed low and locked, siderails up x2, call light placed within reach and instructed to call nurse for assistance, will continue with plan of care.
--- NOTE | 2020-01-31 08:38 | Pulmonology Progress Note ---
Subjective Constitutional: Denies: fever, chills Gastrointestinal/Abdominal: Denies: nausea, vomiting, diarrhea Musculoskeletal: Denies: pain Allergies: Coded Allergies: PENICILLINS (Verified Allergy, Unknown, 05/26/18) POTASSIUM (Verified Allergy, Unknown, 01/29/20) Subjective comfortable notes she needs placement but does not want SNF Objective Last 24 Hour Vital Signs Date Time Temp Pulse Resp B/P (MAP) Pulse Ox O2 Delivery O2 Flow Rate FiO2 01/31/20 08:00 96.7 68 20 108/67 (81) 95 01/31/20 04:00 97.7 66 20 107/73 (84) 95 01/31/20 04:00 65 01/31/20 00:00 78 01/31/20 00:00 97.7 60 20 99/67 (78) 98 01/30/20 21:00 Nasal Cannula 2.0 01/30/20 20:00 97.7 65 20 113/70 (84) 95 01/30/20 20:00 75 01/30/20 16:00 86 01/30/20 16:00 96.8 87 20 113/69 (84) 100 01/30/20 12:00 81 01/30/20 12:00 98.1 67 18 102/69 (80) 100 01/30/20 09:00 63 102/69 01/30/20 09:00 Nasal Cannula 2.0 Intake and Output 01/30/20 01/31/20 19:00 07:00 Intake Total 480 ml Output Total 2600 ml 1500 ml Balance -2600 ml -1020 ml Intake Oral 480 ml Output Urine Total 2600 ml 1500 ml # Voids 3 # Bowel Movements 2 Objective deferred due to COVID Microbiology Date/Time Source Procedure Growth Status 01/29/20 01:55 Nasopharynx SARS-CoV-2 RdRp Gene Assay - Final Complete 01/29/20 00:50 Blood Blood Culture - Preliminary NO GROWTH AFTER 48 HOURS Resulted 01/29/20 00:35 Blood Blood Culture - Preliminary NO GROWTH AFTER 48 HOURS Resulted Current Medications Medications (Trade) Dose Ordered Sig/Leslie Route PRN Reason Start Time Stop Time Status Last Admin Dose Admin Acetaminophen (Tylenol) 650 mg Q4H PRN ORAL Mild Pain (Pain Scale 1-3) 01/29/20 09:45 02/28/20 09:44 Al Hydroxide/Mg Hydroxide (Mylanta) 30 ml EVERY 4 HOURS PRN ORAL upset stomach 01/29/20 09:45 02/28/20 09:44 01/29/20 14:08 Aspirin (ASA) 81 mg DAILY ORAL 01/30/20 09:00 03/15/20 08:59 01/30/20 09:50 Dexamethasone Sodium Phosphate (Decadron 10mg/ ml Inj) 6 mg DAILY IV 01/30/20 09:00 02/08/20 08:59 01/30/20 09:49 Docusate Sodium (Colace) 100 mg TWICE A DAY ORAL 01/29/20 18:00 02/28/20 17:59 01/30/20 17:23 Enoxaparin Sodium (Lovenox) 40 mg DAILY SUBQ 01/30/20 09:00 04/29/20 08:59 01/30/20 09:50 Ergocalciferol (Drisdol) 50,000 intlu ONCE A WEEK ORAL 01/29/20 12:00 02/28/20 11:59 01/29/20 14:03 Ferrous Sulfate (Feosol) 325 mg BID ORAL 01/29/20 18:00 04/28/20 17:59 01/30/20 17:22 Furosemide (Lasix) 40 mg DAILY IV 01/30/20 09:00 02/29/20 08:59 01/30/20 09:49 Gabapentin (Neurontin) 100 mg THREE TIMES A DAY ORAL 01/29/20 13:00 02/28/20 12:59 01/30/20 17:23 Metoprolol Succinate (Toprol XL) 50 mg DAILY ORAL 01/30/20 09:00 04/29/20 08:59 Pantoprazole (Protonix) 40 mg DAILY ORAL 01/30/20 09:00 02/29/20 08:59 01/30/20 09:50 Remdesivir 100 mg/ Sodium Chloride 250 ml @ 250 mls/hr Q24H IV 01/30/20 21:00 02/02/20 21:59 01/30/20 20:53 Assessment/Plan Assessment/Plan Congestive heart failure, hypertension, asthma, COVID positive, mild hypoxemia, mild azotemia, pneumonia. leukopenia PLAN isolation monitor wbc ID clearance diurese monitor imaging oxygen as needed nontoxic placement needed as per d/w patient impression, plan, and exam edited and reviewed in detail care discussed with Parag De Guzman MD Jan 31, 2020 08:38
[2020-01-31] MEDS: Aspirin Baby 81mg ORAL SCH (08:39)
[2020-01-31] MEDS: dexAMETHasone 10mg/ml Inj IV SCH (08:39)
[2020-01-31] MEDS: Docusate 100mg cap ORAL SCH ×2 (08:39→17:00)
[2020-01-31] MEDS: Metoprolol Succinate XL 50mg tab ORAL SCH (08:40)
--- NOTE | 2020-01-31 08:44 | NUR ---
NURSE NOTES: Dr. Aguillon notified of platelet ct 100, clarified parameters and if okay to administer Lovenox. Awaiting response.
[2020-01-31 08:56] LABS: HEMATOCRIT 42.7 % (37.0-47.0); HEMOGLOBIN 14.6 G/DL (12.0-16.0); MEAN CORPUSCULAR VOLUME 97 FL (80-99); PLATELET COUNT 119 K/UL (150-450); RED BLOOD COUNT 4.39 M/UL (4.20-5.40); RED CELL DISTRIBUTION WIDTH 12.7 % (11.6-14.8); WHITE BLOOD COUNT 3.3 K/UL (4.8-10.8)
[2020-01-31 09:10] LABS: ALBUMIN 2.9 G/DL (3.4-5.0); ALBUMIN/GLOBULIN RATIO 0.9 (1.0-2.7); BILIRUBIN,DIRECT 0.1 MG/DL (0.0-0.3); BILIRUBIN,TOTAL 0.1 MG/DL (0.2-1.0); CALCIUM 8.1 MG/DL (8.5-10.1); CREATININE 1.3 MG/DL (0.55-1.30); POTASSIUM 3.9 MMOL/L (3.5-5.1)
[2020-01-31] MEDS: Enoxaparin 40mg Inj SUBQ SCH (09:18)
--- NOTE | 2020-01-31 11:13 | NUR ---
NURSE NOTES: Dr. Aguillon notified of lab results today Na: 132. Awaiting response.
--- NOTE | 2020-01-31 11:17 | NUR ---
NURSE NOTES: Re: Na lab results. No new orders per Dr. Aguillon.
[2020-01-31 12:00] VITALS: BP 113/76
--- NOTE | 2020-01-31 13:55 | Infectious Diseases Prog Note ---
Assessment/Plan Assessment/Plan A 1. COVID-19 pneumonia. 2. Hypertension. 3. Asthma. 4. CHF 5. Leukopenia P 1. continue Decadron day #3 2. continue Remdesivir day 3 3. Continue isolation. Subjective ROS Limited/Unobtainable: No Constitutional: Reports: anorexia Respiratory: Reports: no symptoms Gastrointestinal/Abdominal: Reports: no symptoms Genitourinary: Reports: no symptoms Allergies: Coded Allergies: PENICILLINS (Verified Allergy, Unknown, 05/26/18) POTASSIUM (Verified Allergy, Unknown, 01/29/20) Objective Last 24 Hour Vital Signs Date Time Temp Pulse Resp B/P (MAP) Pulse Ox O2 Delivery O2 Flow Rate FiO2 01/31/20 12:00 67 01/31/20 12:00 98.7 81 19 113/76 (88) 96 01/31/20 09:00 Nasal Cannula 2.0 01/31/20 08:40 68 108/67 01/31/20 08:00 96.7 68 20 108/67 (81) 95 01/31/20 08:00 73 01/31/20 04:00 97.7 66 20 107/73 (84) 95 01/31/20 04:00 65 01/31/20 00:00 78 01/31/20 00:00 97.7 60 20 99/67 (78) 98 01/30/20 21:00 Nasal Cannula 2.0 01/30/20 20:00 97.7 65 20 113/70 (84) 95 01/30/20 20:00 75 01/30/20 16:00 86 01/30/20 16:00 96.8 87 20 113/69 (84) 100 Height (Feet): 5 Height (Inches): 1.00 Weight (Pounds): 156 General Appearance: no acute distress HEENT: mucous membranes moist Respiratory/Chest: lungs clear, other - oxygen by nasal cannula 3 liter Cardiovascular: normal rate Abdomen: soft, non tender Extremities: no edema Microbiology Date/Time Source Procedure Growth Status 01/29/20 01:55 Nasopharynx SARS-CoV-2 RdRp Gene Assay - Final Complete 01/29/20 00:50 Blood Blood Culture - Preliminary NO GROWTH AFTER 48 HOURS Resulted 01/29/20 00:35 Blood Blood Culture - Preliminary NO GROWTH AFTER 48 HOURS Resulted Laboratory Tests Test 01/31/20 08:05 White Blood Count 3.3 K/UL (4.8-10.8) L Red Blood Count 4.39 M/UL (4.20-5.40) Hemoglobin 14.6 G/DL (12.0-16.0) Hematocrit 42.7 % (37.0-47.0) Mean Corpuscular Volume 97 FL (80-99) Mean Corpuscular Hemoglobin 33.3 PG (27.0-31.0) H Mean Corpuscular Hemoglobin Concent 34.2 G/DL (32.0-36.0) Red Cell Distribution Width 12.7 % (11.6-14.8) Platelet Count 119 K/UL (150-450) L Mean Platelet Volume 11.9 FL (6.5-10.1) H Neutrophils (%) (Auto) % (45.0-75.0) Lymphocytes (%) (Auto) % (20.0-45.0) Monocytes (%) (Auto) % (1.0-10.0) Eosinophils (%) (Auto) % (0.0-3.0) Basophils (%) (Auto) % (0.0-2.0) Differential Total Cells Counted 100 Neutrophils % (Manual) 56 % (45-75) Lymphocytes % (Manual) 36 % (20-45) Monocytes % (Manual) 8 % (1-10) Eosinophils % (Manual) 0 % (0-3) Basophils % (Manual) 0 % (0-2) Band Neutrophils 0 % (0-8) Platelet Estimate Decreased L Platelet Morphology Normal Red Blood Cell Morphology Normal Sodium Level 132 MMOL/L (136-145) L Potassium Level 3.9 MMOL/L (3.5-5.1) Chloride Level 101 MMOL/L (98-107) Carbon Dioxide Level 27 MMOL/L (21-32) Anion Gap 4 mmol/L (5-15) L Blood Urea Nitrogen 29 mg/dL (7-18) H Creatinine 1.3 MG/DL (0.55-1.30) Estimat Glomerular Filtration Rate 39.3 mL/min (>60) Glucose Level 131 MG/DL (74-106) H Calcium Level 8.1 MG/DL (8.5-10.1) L Total Bilirubin 0.1 MG/DL (0.2-1.0) L Direct Bilirubin 0.1 MG/DL (0.0-0.3) Aspartate Amino Transf (AST/SGOT) 18 U/L (15-37) Alanine Aminotransferase (ALT/SGPT) 18 U/L (12-78) Alkaline Phosphatase 58 U/L (46-116) Total Protein 6.1 G/DL (6.4-8.2) L Albumin 2.9 G/DL (3.4-5.0) L Globulin 3.2 g/dL Albumin/Globulin Ratio 0.9 (1.0-2.7) L Current Medications Medications (Trade) Dose Ordered Sig/Leslie Route PRN Reason Start Time Stop Time Status Last Admin Dose Admin Acetaminophen (Tylenol) 650 mg Q4H PRN ORAL Mild Pain (Pain Scale 1-3) 01/29/20 09:45 02/28/20 09:44 Al Hydroxide/Mg Hydroxide (Mylanta) 30 ml EVERY 4 HOURS PRN ORAL upset stomach 01/29/20 09:45 02/28/20 09:44 01/31/20 13:12 Aspirin (ASA) 81 mg DAILY ORAL 01/30/20 09:00 03/15/20 08:59 01/31/20 08:39 Dexamethasone Sodium Phosphate (Decadron 10mg/ ml Inj) 6 mg DAILY IV 01/30/20 09:00 02/08/20 08:59 01/31/20 08:39 Docusate Sodium (Colace) 100 mg TWICE A DAY ORAL 01/29/20 18:00 02/28/20 17:59 01/31/20 08:39 Enoxaparin Sodium (Lovenox) 40 mg DAILY SUBQ 01/30/20 09:00 04/29/20 08:59 01/31/20 09:18 Ergocalciferol (Drisdol) 50,000 intlu ONCE A WEEK ORAL 01/29/20 12:00 02/28/20 11:59 01/29/20 14:03 Ferrous Sulfate (Feosol) 325 mg BID ORAL 01/29/20 18:00 04/28/20 17:59 01/31/20 08:39 Furosemide (Lasix) 40 mg DAILY IV 01/30/20 09:00 02/29/20 08:59 01/31/20 08:39 Gabapentin (Neurontin) 100 mg THREE TIMES A DAY ORAL 01/29/20 13:00 02/28/20 12:59 01/31/20 12:18 Metoprolol Succinate (Toprol XL) 50 mg DAILY ORAL 01/30/20 09:00 04/29/20 08:59 Pantoprazole (Protonix) 40 mg DAILY ORAL 01/30/20 09:00 02/29/20 08:59 01/31/20 08:39 Remdesivir 100 mg/ Sodium Chloride 250 ml @ 250 mls/hr Q24H IV 01/30/20 21:00 02/02/20 21:59 01/30/20 20:53 Rupert Felix MD Jan 31, 2020 13:55
[2020-01-31 16:00] VITALS: BP 107/53
--- NOTE | 2020-01-31 16:51 | Cardiology Progress Note ---
Subjective DATE OF SERVICE: Jan 30, 2020 No CP Less SOB Responding to diuretic rx Monitor: sinus with non-sustained ectopy 2D Echo: EF 30% with mild-mod regurgitation. Objective Last 24 Hour Vital Signs Date Time Temp Pulse Resp B/P (MAP) Pulse Ox O2 Delivery O2 Flow Rate FiO2 01/31/20 16:00 75 01/31/20 16:00 97.7 66 18 107/53 (71) 95 01/31/20 12:00 67 01/31/20 12:00 98.7 81 19 113/76 (88) 96 01/31/20 09:00 Nasal Cannula 2.0 01/31/20 08:40 68 108/67 01/31/20 08:00 96.7 68 20 108/67 (81) 95 01/31/20 08:00 73 01/31/20 04:00 97.7 66 20 107/73 (84) 95 01/31/20 04:00 65 01/31/20 00:00 78 01/31/20 00:00 97.7 60 20 99/67 (78) 98 01/30/20 21:00 Nasal Cannula 2.0 01/30/20 20:00 97.7 65 20 113/70 (84) 95 01/30/20 20:00 75 ROS: unchanged from my evaluation of 01/29/20 HEENT: normal ENT inspection RHYTHM: NSR, PVCs, PACs LUNGS: rales bilaterally CARDIAC: normal rate, regular rhythm, normal S1 and S2, systolic murmur - 1/6 systolic murmur at apex ABDOMEN: normal bowel sounds, non tender EXTREMITIES: non-tender, trace edema Laboratory Tests Test 01/31/20 08:05 White Blood Count 3.3 K/UL (4.8-10.8) L Red Blood Count 4.39 M/UL (4.20-5.40) Hemoglobin 14.6 G/DL (12.0-16.0) Hematocrit 42.7 % (37.0-47.0) Mean Corpuscular Volume 97 FL (80-99) Mean Corpuscular Hemoglobin 33.3 PG (27.0-31.0) H Mean Corpuscular Hemoglobin Concent 34.2 G/DL (32.0-36.0) Red Cell Distribution Width 12.7 % (11.6-14.8) Platelet Count 119 K/UL (150-450) L Mean Platelet Volume 11.9 FL (6.5-10.1) H Neutrophils (%) (Auto) % (45.0-75.0) Lymphocytes (%) (Auto) % (20.0-45.0) Monocytes (%) (Auto) % (1.0-10.0) Eosinophils (%) (Auto) % (0.0-3.0) Basophils (%) (Auto) % (0.0-2.0) Differential Total Cells Counted 100 Neutrophils % (Manual) 56 % (45-75) Lymphocytes % (Manual) 36 % (20-45) Monocytes % (Manual) 8 % (1-10) Eosinophils % (Manual) 0 % (0-3) Basophils % (Manual) 0 % (0-2) Band Neutrophils 0 % (0-8) Platelet Estimate Decreased L Platelet Morphology Normal Red Blood Cell Morphology Normal Sodium Level 132 MMOL/L (136-145) L Potassium Level 3.9 MMOL/L (3.5-5.1) Chloride Level 101 MMOL/L (98-107) Carbon Dioxide Level 27 MMOL/L (21-32) Anion Gap 4 mmol/L (5-15) L Blood Urea Nitrogen 29 mg/dL (7-18) H Creatinine 1.3 MG/DL (0.55-1.30) Estimat Glomerular Filtration Rate 39.3 mL/min (>60) Glucose Level 131 MG/DL (74-106) H Calcium Level 8.1 MG/DL (8.5-10.1) L Total Bilirubin 0.1 MG/DL (0.2-1.0) L Direct Bilirubin 0.1 MG/DL (0.0-0.3) Aspartate Amino Transf (AST/SGOT) 18 U/L (15-37) Alanine Aminotransferase (ALT/SGPT) 18 U/L (12-78) Alkaline Phosphatase 58 U/L (46-116) Total Protein 6.1 G/DL (6.4-8.2) L Albumin 2.9 G/DL (3.4-5.0) L Globulin 3.2 g/dL Albumin/Globulin Ratio 0.9 (1.0-2.7) L Microbiology Date/Time Source Procedure Growth Status 01/29/20 01:55 Nasopharynx SARS-CoV-2 RdRp Gene Assay - Final Complete 01/29/20 00:50 Blood Blood Culture - Preliminary NO GROWTH AFTER 48 HOURS Resulted 01/29/20 00:35 Blood Blood Culture - Preliminary NO GROWTH AFTER 48 HOURS Resulted Assessment/Plan Assessment/Plan Acute myocardial ischemia Possible NSTE [place] Acute/chr systolic and diastolic CHF COVID 19 PNA Hypoxia Ischemic cardiomyopathy Acute renal failure Anti-virals O2 Diuresis ACEi therapy to follow Titrate beta concepcion Serial troponin Anticoagulation Steroids per pulmonary Anti-plt rx Estiven Xavier MD Jan 31, 2020 16:51
--- NOTE | 2020-01-31 16:54 | Cardiology Progress Note ---
Subjective DATE OF SERVICE: Jan 31, 2020 No CP Less SOB; on low flow O2. Responding to diuretic rx well; BNP levels decreasing. Monitor: sinus with non-sustained ectopy 2D Echo: EF 30% with mild-mod regurgitation. Objective Last 24 Hour Vital Signs Date Time Temp Pulse Resp B/P (MAP) Pulse Ox O2 Delivery O2 Flow Rate FiO2 01/31/20 16:00 75 01/31/20 16:00 97.7 66 18 107/53 (71) 95 01/31/20 12:00 67 01/31/20 12:00 98.7 81 19 113/76 (88) 96 01/31/20 09:00 Nasal Cannula 2.0 01/31/20 08:40 68 108/67 01/31/20 08:00 96.7 68 20 108/67 (81) 95 01/31/20 08:00 73 01/31/20 04:00 97.7 66 20 107/73 (84) 95 01/31/20 04:00 65 01/31/20 00:00 78 01/31/20 00:00 97.7 60 20 99/67 (78) 98 01/30/20 21:00 Nasal Cannula 2.0 01/30/20 20:00 97.7 65 20 113/70 (84) 95 01/30/20 20:00 75 ROS: unchanged from my evaluation of 01/29/20 HEENT: normal ENT inspection RHYTHM: NSR, PVCs, PACs LUNGS: rales bilaterally CARDIAC: normal rate, regular rhythm, normal S1 and S2, systolic murmur - 1/6 systolic murmur at apex ABDOMEN: normal bowel sounds, non tender EXTREMITIES: non-tender, trace edema Laboratory Tests Test 01/31/20 08:05 White Blood Count 3.3 K/UL (4.8-10.8) L Red Blood Count 4.39 M/UL (4.20-5.40) Hemoglobin 14.6 G/DL (12.0-16.0) Hematocrit 42.7 % (37.0-47.0) Mean Corpuscular Volume 97 FL (80-99) Mean Corpuscular Hemoglobin 33.3 PG (27.0-31.0) H Mean Corpuscular Hemoglobin Concent 34.2 G/DL (32.0-36.0) Red Cell Distribution Width 12.7 % (11.6-14.8) Platelet Count 119 K/UL (150-450) L Mean Platelet Volume 11.9 FL (6.5-10.1) H Neutrophils (%) (Auto) % (45.0-75.0) Lymphocytes (%) (Auto) % (20.0-45.0) Monocytes (%) (Auto) % (1.0-10.0) Eosinophils (%) (Auto) % (0.0-3.0) Basophils (%) (Auto) % (0.0-2.0) Differential Total Cells Counted 100 Neutrophils % (Manual) 56 % (45-75) Lymphocytes % (Manual) 36 % (20-45) Monocytes % (Manual) 8 % (1-10) Eosinophils % (Manual) 0 % (0-3) Basophils % (Manual) 0 % (0-2) Band Neutrophils 0 % (0-8) Platelet Estimate Decreased L Platelet Morphology Normal Red Blood Cell Morphology Normal Sodium Level 132 MMOL/L (136-145) L Potassium Level 3.9 MMOL/L (3.5-5.1) Chloride Level 101 MMOL/L (98-107) Carbon Dioxide Level 27 MMOL/L (21-32) Anion Gap 4 mmol/L (5-15) L Blood Urea Nitrogen 29 mg/dL (7-18) H Creatinine 1.3 MG/DL (0.55-1.30) Estimat Glomerular Filtration Rate 39.3 mL/min (>60) Glucose Level 131 MG/DL (74-106) H Calcium Level 8.1 MG/DL (8.5-10.1) L Total Bilirubin 0.1 MG/DL (0.2-1.0) L Direct Bilirubin 0.1 MG/DL (0.0-0.3) Aspartate Amino Transf (AST/SGOT) 18 U/L (15-37) Alanine Aminotransferase (ALT/SGPT) 18 U/L (12-78) Alkaline Phosphatase 58 U/L (46-116) Total Protein 6.1 G/DL (6.4-8.2) L Albumin 2.9 G/DL (3.4-5.0) L Globulin 3.2 g/dL Albumin/Globulin Ratio 0.9 (1.0-2.7) L Microbiology Date/Time Source Procedure Growth Status 01/29/20 01:55 Nasopharynx SARS-CoV-2 RdRp Gene Assay - Final Complete 01/29/20 00:50 Blood Blood Culture - Preliminary NO GROWTH AFTER 48 HOURS Resulted 01/29/20 00:35 Blood Blood Culture - Preliminary NO GROWTH AFTER 48 HOURS Resulted Assessment/Plan Assessment/Plan Acute myocardial ischemia Possible NSTE [place] Acute/chr systolic and diastolic CHF COVID 19 PNA Hypoxia Ischemic cardiomyopathy Acute renal failure resolved Anti-virals O2 Diuresis - furosemide dose decreased; consider aldactone ACEi therapy added Titrate beta concepcion Serial troponin Anticoagulation Steroids per pulmonary Anti-plt rx Estiven Xavier MD Jan 31, 2020 16:54
[2020-01-31] MEDS ORDERED: Lisinopril 10mg tab ORAL SCH (17:00)
--- NOTE | 2020-01-31 19:20 | NUR ---
NURSE NOTES: RECEIVED REPORT FROM MELYSSA GARAY. PT IN BED AWAKE, ALERT/ORIENTED X4, ABLE TO MAKE NEEDS KNOWN. NO RESP DISTRESS NOTED. ON 02 VIA N/C AT 2L/MIN. DIRECTOR OF [employer] IN PLACE. IV ON RIGHT IN PLACE & PATENT, SALINE LOCKED. F/C IN PLACE & PATENT DARNING TO GRAVITY YELLOW URINE. BED IN LOW POSITION & LOCKED, SIDE RAILS UP X3. CALL LIGHT WITH IN REACH. BED ALARM ON.
--- NOTE | 2020-01-31 19:27 | NUR ---
NURSE HAND-OFF REPORT: Important Events on Shift: No adverse events noted Patient Status: Stable Diet: Cardiac Pending Orders: None Pending Results/Labs:Labs in AM Pending MD notification: Latest Vital Signs: Temperature 97.7 , Pulse 75 , B/P 107 /53 , Respiratory Rate 18 , O2 SAT 95 , Nasal Cannula, O2 Flow Rate 2.0 . Vital Sign Comment: EKG Rhythm: Sinus Rhythm Rhythm change?: N MD Notified?: - MD Response: Latest Live Fall Score: 35 Fall Risk: Medium Risk Safety Measures: Call light Within Reach, Bed Alarm Zone 1, Side Rails Side Rails x2, Bed position Low and Locked. Fall Precautions: Yellow Socks Report given to Anabel RAGSDALE.
[2020-01-31 20:00] VITALS: BP 115/60
[2020-01-31] MEDS: Maintenance Dose:Remdesivir 100mg/NS 230ml x 4 Doses IV SCH ×2 (20:56)
[2020-02-01] VITALS: BP 120/56
[2020-02-01 04:00] VITALS: BP 113/65
--- NOTE | 2020-02-01 07:15 | NUR ---
NURSE NOTES: Report received from Anabel RN. Patient seen on rounds, awake and up in bed. O2 @ 2lpm via NC with no signs of distress. Afebrile. SR w/ PVC's on tele monitor. PIV on right hand patent and intact. Loco cath secured and draining well. Isolation precautions maintained. Bed low and locked, siderails up x2, call light placed within reach and instructed to call nurse for assistance, will continue with plan of care.
[2020-02-01 07:22] LABS: ALANINE AMINOTRANSFERASE 18 U/L (12-78); ALBUMIN 2.8 G/DL (3.4-5.0); ALBUMIN/GLOBULIN RATIO 0.8 (1.0-2.7); ALKALINE PHOSPHATASE 54 U/L (46-116); ANION GAP 5 mmol/L (5-15); ASPARTATE AMINO TRANSFERASE 20 U/L (15-37); BILIRUBIN,DIRECT < 0.1 MG/DL (0.0-0.3); BILIRUBIN,TOTAL 0.3 MG/DL (0.2-1.0); BLOOD UREA NITROGEN 32 mg/dL (7-18); CALCIUM 8.1 MG/DL (8.5-10.1); CARBON DIOXIDE 28 MMOL/L (21-32); CHLORIDE 104 MMOL/L (98-107); CREATININE 1.2 MG/DL (0.55-1.30); POTASSIUM 4.1 MMOL/L (3.5-5.1); SODIUM 137 MMOL/L (136-145)
--- NOTE | 2020-02-01 07:25 | NUR ---
NURSE HAND-OFF REPORT: Important Events on Shift:[N/A] Patient Status: [STABLE] Diet: [CARDIAC] Pending Orders: [] Pending Results/Labs:[] Pending MD notification:[] Latest Vital Signs: Temperature 98.0 , Pulse 67 , B/P 113 /65 , Respiratory Rate 20 , O2 SAT 100 , Nasal Cannula, O2 Flow Rate 2.0 . Vital Sign Comment: [] EKG Rhythm: Sinus Rhythm Rhythm change?: Y MD Notified?: N - MD Response: Latest Live Fall Score: 35 Fall Risk: Medium Risk Safety Measures: Call light Within Reach, Bed Alarm Zone 1, Side Rails Side Rails x2, Bed position Low and Locked. Fall Precautions: Yellow Socks Report given to [MELYSSA GALAVIZ].
[2020-02-01 07:47] LABS: HEMATOCRIT 41.5 % (37.0-47.0); HEMOGLOBIN 15.1 G/DL (12.0-16.0); MEAN CORPUSCULAR VOLUME 91 FL (80-99); PLATELET COUNT 121 K/UL (150-450); RED BLOOD COUNT 4.54 M/UL (4.20-5.40); RED CELL DISTRIBUTION WIDTH 13.1 % (11.6-14.8); WHITE BLOOD COUNT 3.2 K/UL (4.8-10.8)
[2020-02-01 07:49] LABS: LYMPHOCYTES % (AUTO) 49.9 % (20.0-45.0); MONOCYTES % (AUTO) 7.8 % (1.0-10.0); NEUTROPHILS % (AUTO) 41.1 % (45.0-75.0)
[2020-02-01 07:50] LABS: BASOPHILS % (AUTO) 1.2 % (0.0-2.0); EOSINOPHILS % (AUTO) 0.1 % (0.0-3.0)
[2020-02-01 08:00] VITALS: BP 119/69
--- NOTE | 2020-02-01 08:35 | NUR ---
CASE MANAGEMENT:REVIEW 02/01/20 SI: COVID PNEUMONIA 98.0 67 20 113/65 100% ON 2L/NC WBC-3.2 PLT-121 BUN+32 GLUCOSE-73 IS: IV REMSEDIVIR Q24 (06/09) IV DECADRON QD LOVENOX SQ QD IV LASIX QD : TELEMETRY STATUS DCP: FROM HOME
[2020-02-01] MEDS: Aspirin Baby 81mg ORAL SCH (09:11)
[2020-02-01] MEDS: Metoprolol Succinate XL 50mg tab ORAL SCH (09:11)
[2020-02-01] MEDS: dexAMETHasone 10mg/ml Inj IV SCH (09:12)
[2020-02-01] MEDS: Lisinopril 10mg tab ORAL SCH (09:12)
[2020-02-01] MEDS: Docusate 100mg cap ORAL SCH ×2 (09:12→17:24)
[2020-02-01] MEDS: Enoxaparin 40mg Inj SUBQ SCH (09:20)
--- NOTE | 2020-02-01 09:30 | Pulmonology Progress Note ---
Subjective ROS Limited/Unobtainable: No Constitutional: Reports: anorexia Gastrointestinal/Abdominal: Reports: no symptoms Musculoskeletal: Denies: pain Allergies: Coded Allergies: PENICILLINS (Verified Allergy, Unknown, 05/26/18) POTASSIUM (Verified Allergy, Unknown, 01/29/20) Subjective comfortable no distress Objective Last 24 Hour Vital Signs Date Time Temp Pulse Resp B/P (MAP) Pulse Ox O2 Delivery O2 Flow Rate FiO2 02/01/20 09:12 119/69 02/01/20 09:11 73 119/69 02/01/20 04:00 73 02/01/20 04:00 98.0 67 20 113/65 (81) 100 02/01/20 00:00 76 02/01/20 00:00 98.1 65 22 120/56 (77) 95 01/31/20 21:00 Nasal Cannula 2.0 01/31/20 20:00 67 01/31/20 20:00 98.2 63 20 115/60 (78) 94 01/31/20 17:00 107/53 01/31/20 16:00 75 01/31/20 16:00 97.7 66 18 107/53 (71) 95 01/31/20 12:00 67 01/31/20 12:00 98.7 81 19 113/76 (88) 96 Intake and Output 01/31/20 02/01/20 19:00 07:00 Intake Total 400 ml 200 ml Output Total 1600 ml 1100 ml Balance -1200 ml -900 ml Intake Oral 400 ml 200 ml Output Urine Total 1600 ml 1100 ml # Bowel Movements 1 Objective deferred due to COVID Laboratory Tests 02/01/20 06:09: White Blood Count 3.2L, Red Blood Count 4.54, Hemoglobin 15.1, Hematocrit 41.5, Mean Corpuscular Volume 91, Mean Corpuscular Hemoglobin 33.3H, Mean Corpuscular Hemoglobin Concent 36.5H, Red Cell Distribution Width 13.1, Platelet Count 121L, Mean Platelet Volume 15.0H, Neutrophils (%) (Auto) 41.1L, Lymphocytes (%) (Auto) 49.9H, Monocytes (%) (Auto) 7.8, Eosinophils (%) (Auto) 0.1, Basophils (%) (Auto) 1.2, Sodium Level 137, Potassium Level 4.1, Chloride Level 104, Carbon Dioxide Level 28, Anion Gap 5, Blood Urea Nitrogen 32H, Creatinine 1.2, Estimat Glomerular Filtration Rate 43.0, Glucose Level 73L, Calcium Level 8.1L, Total Bilirubin 0.3, Direct Bilirubin < 0.1, Aspartate Amino Transf (AST/SGOT) 20, Alanine Aminotransferase (ALT/SGPT) 18, Alkaline Phosphatase 54, Troponin I 0.039, Pro-B-Type Natriuretic Peptide 4962H, Total Protein 6.1L, Albumin 2.8L, Globulin 3.3, Albumin/Globulin Ratio 0.8L Current Medications Medications (Trade) Dose Ordered Sig/Leslie Route PRN Reason Start Time Stop Time Status Last Admin Dose Admin Acetaminophen (Tylenol) 650 mg Q4H PRN ORAL Mild Pain (Pain Scale 1-3) 01/29/20 09:45 02/28/20 09:44 Al Hydroxide/Mg Hydroxide (Mylanta) 30 ml EVERY 4 HOURS PRN ORAL upset stomach 01/29/20 09:45 02/28/20 09:44 01/31/20 13:12 Aspirin (ASA) 81 mg DAILY ORAL 01/30/20 09:00 03/15/20 08:59 02/01/20 09:11 Dexamethasone Sodium Phosphate (Decadron 10mg/ ml Inj) 6 mg DAILY IV 01/30/20 09:00 02/08/20 08:59 02/01/20 09:12 Docusate Sodium (Colace) 100 mg TWICE A DAY ORAL 01/29/20 18:00 02/28/20 17:59 02/01/20 09:12 Enoxaparin Sodium (Lovenox) 40 mg DAILY SUBQ 01/30/20 09:00 04/29/20 08:59 02/01/20 09:20 Ergocalciferol (Drisdol) 50,000 intlu ONCE A WEEK ORAL 01/29/20 12:00 02/28/20 11:59 01/29/20 14:03 Ferrous Sulfate (Feosol) 325 mg BID ORAL 01/29/20 18:00 04/28/20 17:59 02/01/20 09:11 Furosemide (Lasix) 20 mg DAILY IV 02/01/20 09:00 03/02/20 08:59 02/01/20 09:12 Gabapentin (Neurontin) 100 mg THREE TIMES A DAY ORAL 01/29/20 13:00 02/28/20 12:59 02/01/20 09:11 Lisinopril (ZestriL) 10 mg DAILY ORAL 02/01/20 09:00 03/02/20 08:59 02/01/20 09:12 Metoprolol Succinate (Toprol XL) 50 mg DAILY ORAL 01/30/20 09:00 04/29/20 08:59 02/01/20 09:11 Pantoprazole (Protonix) 40 mg DAILY ORAL 01/30/20 09:00 02/29/20 08:59 02/01/20 09:11 Remdesivir 100 mg/ Sodium Chloride 250 ml @ 250 mls/hr Q24H IV 01/30/20 21:00 02/02/20 21:59 01/31/20 20:56 Assessment/Plan Assessment/Plan Congestive heart failure, hypertension, asthma, COVID positive, mild hypoxemia, mild azotemia, pneumonia. leukopenia PLAN isolation monitor wbc ID clearance diurese as per cards monitor imaging oxygen as needed nontoxic placement needed as per d/w patient impression, plan, and exam edited and reviewed in detail care discussed with Parag De Guzman MD Feb 01, 2020 09:30
--- NOTE | 2020-02-01 10:16 | NUR ---
*-*DISCHARGE PLANNING*-* PATIENT HAS BEEN REFERRED TO: [facility] P: [phone]
--- NOTE | 2020-02-01 11:13 | Infectious Diseases Prog Note ---
Assessment/Plan Assessment/Plan antibiotics : remdesivir 01.29.20 - A 1. COVID-19 pneumonia. on 2 liters of oxygen with 100 % O2 saturation. 2. Hypertension. 3. Asthma. 4. CHF P 1. continue Decadron day #4. 2. continue Remdesivir day 4 3. Continue isolation. Subjective Constitutional: Denies: fever, chills Respiratory: Reports: dry cough; Denies: shortness of breath Gastrointestinal/Abdominal: Denies: nausea, vomiting, diarrhea Musculoskeletal: Denies: pain Allergies: Coded Allergies: PENICILLINS (Verified Allergy, Unknown, 05/26/18) POTASSIUM (Verified Allergy, Unknown, 01/29/20) Objective Last 24 Hour Vital Signs Date Time Temp Pulse Resp B/P (MAP) Pulse Ox O2 Delivery O2 Flow Rate FiO2 02/01/20 09:12 119/69 02/01/20 09:11 73 119/69 02/01/20 04:00 73 02/01/20 04:00 98.0 67 20 113/65 (81) 100 02/01/20 00:00 76 02/01/20 00:00 98.1 65 22 120/56 (77) 95 01/31/20 21:00 Nasal Cannula 2.0 01/31/20 20:00 67 01/31/20 20:00 98.2 63 20 115/60 (78) 94 01/31/20 17:00 107/53 01/31/20 16:00 75 01/31/20 16:00 97.7 66 18 107/53 (71) 95 01/31/20 12:00 67 01/31/20 12:00 98.7 81 19 113/76 (88) 96 Height (Feet): 5 Height (Inches): 1.00 Weight (Pounds): 156 Laboratory Tests Test 02/01/20 06:09 White Blood Count 3.2 K/UL (4.8-10.8) L Red Blood Count 4.54 M/UL (4.20-5.40) Hemoglobin 15.1 G/DL (12.0-16.0) Hematocrit 41.5 % (37.0-47.0) Mean Corpuscular Volume 91 FL (80-99) Mean Corpuscular Hemoglobin 33.3 PG (27.0-31.0) H Mean Corpuscular Hemoglobin Concent 36.5 G/DL (32.0-36.0) H Red Cell Distribution Width 13.1 % (11.6-14.8) Platelet Count 121 K/UL (150-450) L Mean Platelet Volume 15.0 FL (6.5-10.1) H Neutrophils (%) (Auto) 41.1 % (45.0-75.0) L Lymphocytes (%) (Auto) 49.9 % (20.0-45.0) H Monocytes (%) (Auto) 7.8 % (1.0-10.0) Eosinophils (%) (Auto) 0.1 % (0.0-3.0) Basophils (%) (Auto) 1.2 % (0.0-2.0) Sodium Level 137 MMOL/L (136-145) Potassium Level 4.1 MMOL/L (3.5-5.1) Chloride Level 104 MMOL/L (98-107) Carbon Dioxide Level 28 MMOL/L (21-32) Anion Gap 5 mmol/L (5-15) Blood Urea Nitrogen 32 mg/dL (7-18) H Creatinine 1.2 MG/DL (0.55-1.30) Estimat Glomerular Filtration Rate 43.0 mL/min (>60) Glucose Level 73 MG/DL (74-106) L Calcium Level 8.1 MG/DL (8.5-10.1) L Total Bilirubin 0.3 MG/DL (0.2-1.0) Direct Bilirubin < 0.1 MG/DL (0.0-0.3) Aspartate Amino Transf (AST/SGOT) 20 U/L (15-37) Alanine Aminotransferase (ALT/SGPT) 18 U/L (12-78) Alkaline Phosphatase 54 U/L (46-116) Troponin I 0.039 ng/mL (0.000-0.056) Pro-B-Type Natriuretic Peptide 4962 pg/mL (0-125) H Total Protein 6.1 G/DL (6.4-8.2) L Albumin 2.8 G/DL (3.4-5.0) L Globulin 3.3 g/dL Albumin/Globulin Ratio 0.8 (1.0-2.7) L Current Medications Medications (Trade) Dose Ordered Sig/Leslie Route PRN Reason Start Time Stop Time Status Last Admin Dose Admin Acetaminophen (Tylenol) 650 mg Q4H PRN ORAL Mild Pain (Pain Scale 1-3) 01/29/20 09:45 02/28/20 09:44 Al Hydroxide/Mg Hydroxide (Mylanta) 30 ml EVERY 4 HOURS PRN ORAL upset stomach 01/29/20 09:45 02/28/20 09:44 01/31/20 13:12 Aspirin (ASA) 81 mg DAILY ORAL 01/30/20 09:00 03/15/20 08:59 02/01/20 09:11 Dexamethasone Sodium Phosphate (Decadron 10mg/ ml Inj) 6 mg DAILY IV 01/30/20 09:00 02/08/20 08:59 02/01/20 09:12 Docusate Sodium (Colace) 100 mg TWICE A DAY ORAL 01/29/20 18:00 02/28/20 17:59 02/01/20 09:12 Enoxaparin Sodium (Lovenox) 40 mg DAILY SUBQ 01/30/20 09:00 04/29/20 08:59 02/01/20 09:20 Ergocalciferol (Drisdol) 50,000 intlu ONCE A WEEK ORAL 01/29/20 12:00 02/28/20 11:59 01/29/20 14:03 Ferrous Sulfate (Feosol) 325 mg BID ORAL 01/29/20 18:00 04/28/20 17:59 02/01/20 09:11 Furosemide (Lasix) 20 mg DAILY IV 02/01/20 09:00 03/02/20 08:59 02/01/20 09:12 Gabapentin (Neurontin) 100 mg THREE TIMES A DAY ORAL 01/29/20 13:00 02/28/20 12:59 02/01/20 09:11 Lisinopril (ZestriL) 10 mg DAILY ORAL 02/01/20 09:00 03/02/20 08:59 02/01/20 09:12 Metoprolol Succinate (Toprol XL) 50 mg DAILY ORAL 01/30/20 09:00 04/29/20 08:59 02/01/20 09:11 Pantoprazole (Protonix) 40 mg DAILY ORAL 01/30/20 09:00 02/29/20 08:59 02/01/20 09:11 Remdesivir 100 mg/ Sodium Chloride 250 ml @ 250 mls/hr Q24H IV 01/30/20 21:00 02/02/20 21:59 01/31/20 20:56 Carla Elizabeth MD Feb 01, 2020 11:13
[2020-02-01 12:00] VITALS: BP 111/57
--- NOTE | 2020-02-01 14:32 | NUR ---
*-*DISCHARGE PLANNED*-* PATIENT HAS BEEN ACCEPTED TO: [facility] P: [phone] S/W IVANNA, WILL SERVICE PATIENT UPON DISCHARGE.
--- NOTE | 2020-02-01 15:33 | Cardiology Progress Note ---
Subjective DATE OF SERVICE: Feb 01, 2020 No CP; troponin levels have normalized. No SOB; on low flow O2. Responding to diuretics rx well; [place] [address]76 to under 5000. Monitor: sinus with non-sustained ectopy 2D Echo: EF 30% with mild-mod regurgitation. Objective Last 24 Hour Vital Signs Date Time Temp Pulse Resp B/P (MAP) Pulse Ox O2 Delivery O2 Flow Rate FiO2 02/01/20 12:00 97.5 62 20 111/57 (75) 97 02/01/20 12:00 62 02/01/20 09:12 119/69 02/01/20 09:11 73 119/69 02/01/20 09:00 Nasal Cannula 2.0 02/01/20 08:00 62 02/01/20 08:00 97.2 73 20 119/69 (86) 98 02/01/20 04:00 73 02/01/20 04:00 98.0 67 20 113/65 (81) 100 02/01/20 00:00 76 02/01/20 00:00 98.1 65 22 120/56 (77) 95 01/31/20 21:00 Nasal Cannula 2.0 01/31/20 20:00 67 01/31/20 20:00 98.2 63 20 115/60 (78) 94 01/31/20 17:00 107/53 01/31/20 16:00 75 01/31/20 16:00 97.7 66 18 107/53 (71) 95 ROS: unchanged from my evaluation of 01/29/20 HEENT: normal ENT inspection RHYTHM: NSR, PVCs, PACs LUNGS: rales bilaterally CARDIAC: normal rate, regular rhythm, normal S1 and S2, systolic murmur - 1/6 systolic murmur at apex ABDOMEN: normal bowel sounds, non tender EXTREMITIES: non-tender, trace edema Laboratory Tests Test 02/01/20 06:09 White Blood Count 3.2 K/UL (4.8-10.8) L Red Blood Count 4.54 M/UL (4.20-5.40) Hemoglobin 15.1 G/DL (12.0-16.0) Hematocrit 41.5 % (37.0-47.0) Mean Corpuscular Volume 91 FL (80-99) Mean Corpuscular Hemoglobin 33.3 PG (27.0-31.0) H Mean Corpuscular Hemoglobin Concent 36.5 G/DL (32.0-36.0) H Red Cell Distribution Width 13.1 % (11.6-14.8) Platelet Count 121 K/UL (150-450) L Mean Platelet Volume 15.0 FL (6.5-10.1) H Neutrophils (%) (Auto) 41.1 % (45.0-75.0) L Lymphocytes (%) (Auto) 49.9 % (20.0-45.0) H Monocytes (%) (Auto) 7.8 % (1.0-10.0) Eosinophils (%) (Auto) 0.1 % (0.0-3.0) Basophils (%) (Auto) 1.2 % (0.0-2.0) Sodium Level 137 MMOL/L (136-145) Potassium Level 4.1 MMOL/L (3.5-5.1) Chloride Level 104 MMOL/L (98-107) Carbon Dioxide Level 28 MMOL/L (21-32) Anion Gap 5 mmol/L (5-15) Blood Urea Nitrogen 32 mg/dL (7-18) H Creatinine 1.2 MG/DL (0.55-1.30) Estimat Glomerular Filtration Rate 43.0 mL/min (>60) Glucose Level 73 MG/DL (74-106) L Calcium Level 8.1 MG/DL (8.5-10.1) L Total Bilirubin 0.3 MG/DL (0.2-1.0) Direct Bilirubin < 0.1 MG/DL (0.0-0.3) Aspartate Amino Transf (AST/SGOT) 20 U/L (15-37) Alanine Aminotransferase (ALT/SGPT) 18 U/L (12-78) Alkaline Phosphatase 54 U/L (46-116) Troponin I 0.039 ng/mL (0.000-0.056) Pro-B-Type Natriuretic Peptide 4962 pg/mL (0-125) H Total Protein 6.1 G/DL (6.4-8.2) L Albumin 2.8 G/DL (3.4-5.0) L Globulin 3.3 g/dL Albumin/Globulin Ratio 0.8 (1.0-2.7) L Assessment/Plan Assessment/Plan Acute myocardial ischemia Possible NSTE [place] Acute/chr systolic and diastolic CHF COVID 19 PNA Hypoxia Ischemic cardiomyopathy Acute renal failure resolved Anti-virals O2 Diuresis - furosemide dose decreased; will switch to orals soon and consider aldactone ACEi therapy added - will titrate. Titrate beta concepcion Anticoagulation Steroids per pulmonary Anti-plt rx Estiven Xavier MD Feb 01, 2020 15:33
[2020-02-01 16:00] VITALS: BP 103/67
--- NOTE | 2020-02-01 19:38 | NUR ---
NURSE HAND-OFF REPORT: Important Events on Shift: IV reinserted on left forearm; no other adverse events noted, DCP noted with home health referral Patient Status: Stable Diet: Cardiac Pending Orders: N Pending Results/Labs:Labs in AM Pending MD notification:N Latest Vital Signs: Temperature 97.9 , Pulse 64 , B/P 103 /67 , Respiratory Rate 20 , O2 SAT 98 , Nasal Cannula, O2 Flow Rate 2.0 . Vital Sign Comment: EKG Rhythm: Sinus Rhythm Rhythm change?: N MD Notified?: N - MD Response: Latest Live Fall Score: 35 Fall Risk: Medium Risk Safety Measures: Call light Within Reach, Bed Alarm Zone 1, Side Rails Side Rails x2, Bed position Low and Locked. Fall Precautions: Yellow Socks Report given to Brittany RAGSDALE.
--- NOTE | 2020-02-01 19:39 | NUR ---
NURSE NOTES: Received pt AOX4; noted comfortable in bed; in no acute distress; per pt she had a BM and noted with BM still on toilet; ambulatory so asked to call for assistance when needing to go to the bathroom; With L forearm PIV site 22 gauge saline locked; intact; call light within reach; bed locked and in low position; side rails x 2; will continue to monitor.
[2020-02-01 20:00] VITALS: BP 112/66
[2020-02-01] MEDS: Maintenance Dose:Remdesivir 100mg/NS 230ml x 4 Doses IV SCH ×2 (21:33)
[2020-02-02] VITALS: BP 112/63
[2020-02-02 04:00] VITALS: BP 122/55
[2020-02-02 06:12] LABS: HEMATOCRIT 42.4 % (37.0-47.0); HEMOGLOBIN 14.9 G/DL (12.0-16.0); MEAN CORPUSCULAR VOLUME 94 FL (80-99); PLATELET COUNT 122 K/UL (150-450); RED BLOOD COUNT 4.52 M/UL (4.20-5.40); RED CELL DISTRIBUTION WIDTH 13.8 % (11.6-14.8); WHITE BLOOD COUNT 3.5 K/UL (4.8-10.8)
[2020-02-02 06:45] LABS: ALANINE AMINOTRANSFERASE 19 U/L (12-78); ALBUMIN 2.7 G/DL (3.4-5.0); ALBUMIN/GLOBULIN RATIO 0.8 (1.0-2.7); ALKALINE PHOSPHATASE 53 U/L (46-116); ANION GAP 3 mmol/L (5-15); ASPARTATE AMINO TRANSFERASE 23 U/L (15-37); BILIRUBIN,DIRECT < 0.1 MG/DL (0.0-0.3); BILIRUBIN,TOTAL 0.2 MG/DL (0.2-1.0); BLOOD UREA NITROGEN 24 mg/dL (7-18); CALCIUM 8.3 MG/DL (8.5-10.1); CARBON DIOXIDE 31 MMOL/L (21-32); CHLORIDE 105 MMOL/L (98-107); CREATININE 1.2 MG/DL (0.55-1.30); POTASSIUM 4.4 MMOL/L (3.5-5.1); SODIUM 139 MMOL/L (136-145)
--- NOTE | 2020-02-02 07:25 | NUR ---
NURSE HAND-OFF REPORT: Important Events on Shift: Sinus Jam with PVCs (HR=54), Dr. Xavier aware, awaiting response, pt asymptomatic, F/c renewed 0049 Patient Status: stable Diet: cardiac Pending Orders: N Pending Results/Labs:MORNING LABS Pending MD notification: Dr. Xavier Latest Vital Signs: Temperature 98.0 , Pulse 58 , B/P 122 /55 , Respiratory Rate 18 , O2 SAT 99 , Nasal Cannula, O2 Flow Rate 2.0 . Vital Sign Comment: stable EKG Rhythm: Sinus Bradycardia Rhythm change?: N MD Notified?: Y -Dr. Duc ESTRELLA Response: Message left await call Latest Live Fall Score: 55 Fall Risk: High Risk Safety Measures: Call light Within Reach, Bed Alarm Zone 1, Side Rails Side Rails x2, Bed position Low and Locked. Fall Precautions: Yellow Socks Report given to MELYSSA Dow [].
--- NOTE | 2020-02-02 07:27 | NUR ---
NURSE NOTES: Report received from Dinora/Kiara RN. Patient seen on rounds, asleep but easily rousable. O2 @ 2lpm via NC with no signs of distress. Afebrile. SR w/ PVC's on tele monitor. Nurse reports episode of Sinus bradycaria w/ PVC's, HR noted at 54-55bpm, pt asymptomatic. Msg was left with Dr. Xavier. PIV on left forearm patent and intact. Loco cath secured and draining well. Isolation precautions maintained. Bed low and locked, siderails up x2, call light placed within reach and instructed to call nurse for assistance, will continue with plan of care.
[2020-02-02 08:00] VITALS: BP 120/60
[2020-02-02] MEDS: Lisinopril 10mg tab ORAL SCH (08:27)
[2020-02-02] MEDS: Metoprolol Succinate XL 50mg tab ORAL SCH (08:27)
[2020-02-02] MEDS: Docusate 100mg cap ORAL SCH ×2 (08:29→17:39)
[2020-02-02] MEDS: Aspirin Baby 81mg ORAL SCH (08:30)
[2020-02-02] MEDS: dexAMETHasone 10mg/ml Inj IV SCH (08:30)
[2020-02-02] MEDS: Enoxaparin 40mg Inj SUBQ SCH (08:31)
--- NOTE | 2020-02-02 11:27 | Pulmonology Progress Note ---
Subjective ROS Limited/Unobtainable: No Constitutional: Denies: fever, chills Gastrointestinal/Abdominal: Denies: nausea, vomiting, diarrhea Musculoskeletal: Denies: pain Allergies: Coded Allergies: PENICILLINS (Verified Allergy, Unknown, 05/26/18) POTASSIUM (Verified Allergy, Unknown, 01/29/20) Objective Last 24 Hour Vital Signs Date Time Temp Pulse Resp B/P (MAP) Pulse Ox O2 Delivery O2 Flow Rate FiO2 02/02/20 09:00 Nasal Cannula 2.0 02/02/20 08:27 120/60 02/02/20 08:27 66 120/60 02/02/20 08:00 97.7 66 20 120/60 (80) 98 02/02/20 08:00 70 02/02/20 04:00 98.0 62 18 122/55 (77) 99 02/02/20 04:00 58 02/02/20 00:00 59 02/02/20 00:00 97.9 57 18 112/63 (79) 99 02/01/20 20:00 98.1 61 18 112/66 (81) 100 02/01/20 20:00 Nasal Cannula 2.0 02/01/20 20:00 54 02/01/20 16:00 97.9 65 20 103/67 (79) 98 02/01/20 16:00 64 02/01/20 12:00 97.5 62 20 111/57 (75) 97 02/01/20 12:00 62 Intake and Output 02/01/20 02/02/20 19:00 07:00 Intake Total 420 ml Output Total 700 ml 1400 ml Balance -280 ml -1400 ml Intake Oral 420 ml Output Urine Total 700 ml 1400 ml Laboratory Tests 02/02/20 05:25: White Blood Count 3.5L, Red Blood Count 4.52, Hemoglobin 14.9, Hematocrit 42.4, Mean Corpuscular Volume 94, Mean Corpuscular Hemoglobin 33.0H, Mean Corpuscular Hemoglobin Concent 35.2, Red Cell Distribution Width 13.8, Platelet Count 122L, Mean Platelet Volume 11.8H, Neutrophils (%) (Auto) , Lymphocytes (%) (Auto) , Monocytes (%) (Auto) , Eosinophils (%) (Auto) , Basophils (%) (Auto) , Sodium Level 139, Potassium Level 4.4, Chloride Level 105, Carbon Dioxide Level 31, Anion Gap 3L, Blood Urea Nitrogen 24H, Creatinine 1.2, Estimat Glomerular Filtration Rate 43.0, Glucose Level 76, Calcium Level 8.3L, Total Bilirubin 0.2, Direct Bilirubin < 0.1, Aspartate Amino Transf (AST/SGOT) 23, Alanine Aminotransferase (ALT/SGPT) 19, Alkaline Phosphatase 53, Total Protein 6.0L, Albumin 2.7L, Globulin 3.3, Albumin/Globulin Ratio 0.8L Current Medications Medications (Trade) Dose Ordered Sig/Leslie Route PRN Reason Start Time Stop Time Status Last Admin Dose Admin Acetaminophen (Tylenol) 650 mg Q4H PRN ORAL Mild Pain (Pain Scale 1-3) 01/29/20 09:45 02/28/20 09:44 Al Hydroxide/Mg Hydroxide (Mylanta) 30 ml EVERY 4 HOURS PRN ORAL upset stomach 01/29/20 09:45 02/28/20 09:44 02/01/20 11:15 Aspirin (ASA) 81 mg DAILY ORAL 01/30/20 09:00 03/15/20 08:59 02/02/20 08:30 Dexamethasone Sodium Phosphate (Decadron 10mg/ ml Inj) 6 mg DAILY IV 01/30/20 09:00 02/08/20 08:59 02/02/20 08:30 Docusate Sodium (Colace) 100 mg TWICE A DAY ORAL 01/29/20 18:00 02/28/20 17:59 02/02/20 08:29 Enoxaparin Sodium (Lovenox) 40 mg DAILY SUBQ 01/30/20 09:00 04/29/20 08:59 02/02/20 08:31 Ergocalciferol (Drisdol) 50,000 intlu ONCE A WEEK ORAL 01/29/20 12:00 02/28/20 11:59 01/29/20 14:03 Ferrous Sulfate (Feosol) 325 mg BID ORAL 01/29/20 18:00 04/28/20 17:59 02/02/20 08:29 Furosemide (Lasix) 20 mg DAILY IV 02/01/20 09:00 03/02/20 08:59 02/02/20 08:27 Gabapentin (Neurontin) 100 mg THREE TIMES A DAY ORAL 01/29/20 13:00 02/28/20 12:59 02/02/20 08:29 Lisinopril (ZestriL) 10 mg DAILY ORAL 02/01/20 09:00 03/02/20 08:59 02/02/20 08:27 Metoprolol Succinate (Toprol XL) 50 mg DAILY ORAL 01/30/20 09:00 04/29/20 08:59 02/02/20 08:27 Pantoprazole (Protonix) 40 mg DAILY ORAL 01/30/20 09:00 02/29/20 08:59 02/02/20 08:29 Remdesivir 100 mg/ Sodium Chloride 250 ml @ 250 mls/hr Q24H IV 01/30/20 21:00 02/02/20 21:59 02/01/20 21:33 Assessment/Plan Assessment/Plan Pulmonary Progress Note Subjective ROS Limited/Unobtainable: No Constitutional: Reports: anorexia Gastrointestinal/Abdominal: Reports: no symptoms Musculoskeletal: Denies: pain Allergies: Coded Allergies: PENICILLINS (Verified Allergy, Unknown, 05/26/18) POTASSIUM (Verified Allergy, Unknown, 01/29/20) Subjective comfortable no distress Objective Vital Signs noted Objective deferred due to COVID Laboratory Tests noted Medications noted Assessment/Plan Assessment/Plan Congestive heart failure, hypertension, asthma, COVID positive, mild hypoxemia, mild azotemia, pneumonia. leukopenia PLAN isolation monitor wbc ID clearance diurese as per cards monitor imaging oxygen as needed nontoxic placement needed as per d/w patient impression, plan, and exam edited and reviewed in detail care discussed with Estiven Roper MD Feb 02, 2020 11:27
[2020-02-02 12:00] VITALS: BP 118/69
--- NOTE | 2020-02-02 15:56 | Cardiology Progress Note ---
Subjective DATE OF SERVICE: Feb 02, 2020 No CP; troponin levels have normalized. No SOB; on low flow O2. Responding to diuretics rx well; [place] [address]24 to under 5000. Monitor: sinus with non-sustained ectopy 2D Echo: EF 30% with mild-mod regurgitation. Objective Last 24 Hour Vital Signs Date Time Temp Pulse Resp B/P (MAP) Pulse Ox O2 Delivery O2 Flow Rate FiO2 02/02/20 12:00 97.9 71 18 118/69 (85) 97 02/02/20 12:00 67 02/02/20 09:00 Nasal Cannula 2.0 02/02/20 08:27 120/60 02/02/20 08:27 66 120/60 02/02/20 08:00 97.7 66 20 120/60 (80) 98 02/02/20 08:00 70 02/02/20 04:00 98.0 62 18 122/55 (77) 99 02/02/20 04:00 58 02/02/20 00:00 59 02/02/20 00:00 97.9 57 18 112/63 (79) 99 02/01/20 20:00 98.1 61 18 112/66 (81) 100 02/01/20 20:00 Nasal Cannula 2.0 02/01/20 20:00 54 02/01/20 16:00 97.9 65 20 103/67 (79) 98 02/01/20 16:00 64 ROS: unchanged from my evaluation of 01/29/20 HEENT: normal ENT inspection RHYTHM: NSR, PVCs, PACs LUNGS: rales bilaterally CARDIAC: normal rate, regular rhythm, normal S1 and S2, systolic murmur - 1/6 systolic murmur at apex ABDOMEN: normal bowel sounds, non tender EXTREMITIES: non-tender, trace edema Laboratory Tests Test 02/02/20 05:25 White Blood Count 3.5 K/UL (4.8-10.8) L Red Blood Count 4.52 M/UL (4.20-5.40) Hemoglobin 14.9 G/DL (12.0-16.0) Hematocrit 42.4 % (37.0-47.0) Mean Corpuscular Volume 94 FL (80-99) Mean Corpuscular Hemoglobin 33.0 PG (27.0-31.0) H Mean Corpuscular Hemoglobin Concent 35.2 G/DL (32.0-36.0) Red Cell Distribution Width 13.8 % (11.6-14.8) Platelet Count 122 K/UL (150-450) L Mean Platelet Volume 11.8 FL (6.5-10.1) H Neutrophils (%) (Auto) % (45.0-75.0) Lymphocytes (%) (Auto) % (20.0-45.0) Monocytes (%) (Auto) % (1.0-10.0) Eosinophils (%) (Auto) % (0.0-3.0) Basophils (%) (Auto) % (0.0-2.0) Sodium Level 139 MMOL/L (136-145) Potassium Level 4.4 MMOL/L (3.5-5.1) Chloride Level 105 MMOL/L (98-107) Carbon Dioxide Level 31 MMOL/L (21-32) Anion Gap 3 mmol/L (5-15) L Blood Urea Nitrogen 24 mg/dL (7-18) H Creatinine 1.2 MG/DL (0.55-1.30) Estimat Glomerular Filtration Rate 43.0 mL/min (>60) Glucose Level 76 MG/DL (74-106) Calcium Level 8.3 MG/DL (8.5-10.1) L Total Bilirubin 0.2 MG/DL (0.2-1.0) Direct Bilirubin < 0.1 MG/DL (0.0-0.3) Aspartate Amino Transf (AST/SGOT) 23 U/L (15-37) Alanine Aminotransferase (ALT/SGPT) 19 U/L (12-78) Alkaline Phosphatase 53 U/L (46-116) Total Protein 6.0 G/DL (6.4-8.2) L Albumin 2.7 G/DL (3.4-5.0) L Globulin 3.3 g/dL Albumin/Globulin Ratio 0.8 (1.0-2.7) L Assessment/Plan Assessment/Plan Acute myocardial ischemia 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 Anti-virals O2 Diuresis - furosemide dose titration; will switch to orals soon and consider aldactone ACEi therapy added - will titrate as tolerated. Titrate beta concepcion Anticoagulation Steroids per pulmonary Anti-plt rx Estiven Xavier MD Feb 02, 2020 15:56
[2020-02-02 16:00] VITALS: BP 125/65
--- NOTE | 2020-02-02 17:32 | Infectious Diseases Prog Note ---
Assessment/Plan Assessment/Plan A 1. COVID-19 pneumonia. 2. Hypertension. 3. Asthma. 4. CHF 5. Leukopenia P 1. continue Decadron day #5 2. continue Remdesivir until tonight 3. Continue isolation. Subjective ROS Limited/Unobtainable: Yes Constitutional: Denies: fever Allergies: Coded Allergies: PENICILLINS (Verified Allergy, Unknown, 05/26/18) POTASSIUM (Verified Allergy, Unknown, 01/29/20) Objective Last 24 Hour Vital Signs Date Time Temp Pulse Resp B/P (MAP) Pulse Ox O2 Delivery O2 Flow Rate FiO2 02/02/20 16:00 83 02/02/20 16:00 97.5 68 20 125/65 (85) 96 02/02/20 12:00 97.9 71 18 118/69 (85) 97 02/02/20 12:00 67 02/02/20 09:00 Nasal Cannula 2.0 02/02/20 08:27 120/60 02/02/20 08:27 66 120/60 02/02/20 08:00 97.7 66 20 120/60 (80) 98 02/02/20 08:00 70 02/02/20 04:00 98.0 62 18 122/55 (77) 99 02/02/20 04:00 58 02/02/20 00:00 59 02/02/20 00:00 97.9 57 18 112/63 (79) 99 02/01/20 20:00 98.1 61 18 112/66 (81) 100 02/01/20 20:00 Nasal Cannula 2.0 02/01/20 20:00 54 Height (Feet): 5 Height (Inches): 1.00 Weight (Pounds): 156 HEENT: mucous membranes moist Respiratory/Chest: other - oxygen by nasal cannula Cardiovascular: normal rate Abdomen: soft, non tender Extremities: no edema Neurologic/Psychiatric: alert, responsive Laboratory Tests Test 02/02/20 05:25 White Blood Count 3.5 K/UL (4.8-10.8) L Red Blood Count 4.52 M/UL (4.20-5.40) Hemoglobin 14.9 G/DL (12.0-16.0) Hematocrit 42.4 % (37.0-47.0) Mean Corpuscular Volume 94 FL (80-99) Mean Corpuscular Hemoglobin 33.0 PG (27.0-31.0) H Mean Corpuscular Hemoglobin Concent 35.2 G/DL (32.0-36.0) Red Cell Distribution Width 13.8 % (11.6-14.8) Platelet Count 122 K/UL (150-450) L Mean Platelet Volume 11.8 FL (6.5-10.1) H Neutrophils (%) (Auto) % (45.0-75.0) Lymphocytes (%) (Auto) % (20.0-45.0) Monocytes (%) (Auto) % (1.0-10.0) Eosinophils (%) (Auto) % (0.0-3.0) Basophils (%) (Auto) % (0.0-2.0) Sodium Level 139 MMOL/L (136-145) Potassium Level 4.4 MMOL/L (3.5-5.1) Chloride Level 105 MMOL/L (98-107) Carbon Dioxide Level 31 MMOL/L (21-32) Anion Gap 3 mmol/L (5-15) L Blood Urea Nitrogen 24 mg/dL (7-18) H Creatinine 1.2 MG/DL (0.55-1.30) Estimat Glomerular Filtration Rate 43.0 mL/min (>60) Glucose Level 76 MG/DL (74-106) Calcium Level 8.3 MG/DL (8.5-10.1) L Total Bilirubin 0.2 MG/DL (0.2-1.0) Direct Bilirubin < 0.1 MG/DL (0.0-0.3) Aspartate Amino Transf (AST/SGOT) 23 U/L (15-37) Alanine Aminotransferase (ALT/SGPT) 19 U/L (12-78) Alkaline Phosphatase 53 U/L (46-116) Total Protein 6.0 G/DL (6.4-8.2) L Albumin 2.7 G/DL (3.4-5.0) L Globulin 3.3 g/dL Albumin/Globulin Ratio 0.8 (1.0-2.7) L Current Medications Medications (Trade) Dose Ordered Sig/Leslie Route PRN Reason Start Time Stop Time Status Last Admin Dose Admin Acetaminophen (Tylenol) 650 mg Q4H PRN ORAL Mild Pain (Pain Scale 1-3) 01/29/20 09:45 02/28/20 09:44 Al Hydroxide/Mg Hydroxide (Mylanta) 30 ml EVERY 4 HOURS PRN ORAL upset stomach 01/29/20 09:45 02/28/20 09:44 02/01/20 11:15 Aspirin (ASA) 81 mg DAILY ORAL 01/30/20 09:00 03/15/20 08:59 02/02/20 08:30 Dexamethasone Sodium Phosphate (Decadron 4mg/ml vial) 6 mg DAILY IVP 02/03/20 09:00 02/08/20 08:59 Docusate Sodium (Colace) 100 mg TWICE A DAY ORAL 01/29/20 18:00 02/28/20 17:59 02/02/20 08:29 Enoxaparin Sodium (Lovenox) 40 mg DAILY SUBQ 01/30/20 09:00 04/29/20 08:59 02/02/20 08:31 Ergocalciferol (Drisdol) 50,000 intlu ONCE A WEEK ORAL 01/29/20 12:00 02/28/20 11:59 01/29/20 14:03 Ferrous Sulfate (Feosol) 325 mg BID ORAL 01/29/20 18:00 04/28/20 17:59 02/02/20 08:29 Furosemide (Lasix) 20 mg DAILY IV 02/01/20 09:00 03/02/20 08:59 02/02/20 08:27 Gabapentin (Neurontin) 100 mg THREE TIMES A DAY ORAL 01/29/20 13:00 02/28/20 12:59 02/02/20 13:20 Lisinopril (ZestriL) 10 mg DAILY ORAL 02/01/20 09:00 03/02/20 08:59 02/02/20 08:27 Metoprolol Succinate (Toprol XL) 50 mg DAILY ORAL 01/30/20 09:00 04/29/20 08:59 02/02/20 08:27 Pantoprazole (Protonix) 40 mg DAILY ORAL 01/30/20 09:00 02/29/20 08:59 02/02/20 08:29 Remdesivir 100 mg/ Sodium Chloride 250 ml @ 250 mls/hr Q24H IV 01/30/20 21:00 02/02/20 21:59 02/01/20 21:33 Rupert Felix MD Feb 02, 2020 17:32
--- NOTE | 2020-02-02 19:11 | NUR ---
NURSE HAND-OFF REPORT: Important Events on Shift: Diarrhea x2 with soft/mushy stools, Colace held with resolution of symptoms, D5 Remedesivir tonight Patient Status: Stable Diet: Cardiac Pending Orders: N Pending Results/Labs: Labs in AM Pending notification: N Latest Vital Signs: Temperature 97.5 , Pulse 83 , B/P 125 /65 , Respiratory Rate 20 , O2 SAT 96 , Nasal Cannula, O2 Flow Rate 2.0 . Vital Sign Comment: EKG Rhythm: Sinus Rhythm Rhythm change?: N MD Notified?: Y -Dr. Duc ESTRELLA Response: Message left await call Latest Live Fall Score: 35 Fall Risk: Medium Risk Safety Measures: Call light Within Reach, Bed Alarm Zone 1, Side Rails Side Rails x2, Bed position Low and Locked. Fall Precautions: Yellow Socks Report given to Adilson Alicea RN.
--- NOTE | 2020-02-02 19:20 | NUR ---
NURSE NOTES: Patient received from MELYSSA Dow. Patient is awake, alert and oriented x 4. Patient is able to verbalize her needs. Patient is in bed asking for ice chips, will tend to her needs. Patient is on 2 L Nasal cannula with no signs of acute respiratory distress. Patient able to ambulate and use the restroom, fall precaution initiated. Patient has a 22 gauge IV on her left forearm, saline locked. Bed is in the lowest position and locked, call light within reach. Will continue to monitor.
[2020-02-02 20:00] VITALS: BP 108/63
[2020-02-02] MEDS: Maintenance Dose:Remdesivir 100mg/NS 230ml x 4 Doses IV SCH ×2 (20:33)
[2020-02-03] VITALS: BP 105/60
[2020-02-03 04:00] VITALS: BP 126/71
--- NOTE | 2020-02-03 07:30 | NUR ---
NURSE HAND-OFF REPORT: Important Events on Shift:[] Patient Status: [] Diet: [Cardiac diet] Pending Orders: [] Pending Results/Labs:[] Pending MD notification:[] Latest Vital Signs: Temperature 97.4 , Pulse 66 , B/P 126 /71 , Respiratory Rate 20 , O2 SAT 99 , Nasal Cannula, O2 Flow Rate 2.0 . Vital Sign Comment: [] EKG Rhythm: Sinus Rhythm Rhythm change?: N MD Notified?: [place] -Dr. Duc ESTRELLA Response: Message left await call Latest Live Fall Score: 35 Fall Risk: Medium Risk Safety Measures: Call light Within Reach, Bed Alarm Zone 1, Side Rails Side Rails x2, Bed position Low and Locked. Fall Precautions: Yellow Socks Report given to [Carol RN].
--- NOTE | 2020-02-03 07:31 | NUR ---
NURSE NOTES: Received patient in bed awake. O2 via NC at 2LPM in place, no SOB or acute distress. IV line intact. FC intact, draining yellow colored urine. HOB elevated. Bed locked in low position. Call light within reach. Will continue plan of care.
[2020-02-03 08:00] VITALS: BP 115/62
[2020-02-03 08:02] LABS: HEMATOCRIT 41.8 % (37.0-47.0); HEMOGLOBIN 14.6 G/DL (12.0-16.0); MEAN CORPUSCULAR VOLUME 92 FL (80-99); PLATELET COUNT 112 K/UL (150-450); RED BLOOD COUNT 4.57 M/UL (4.20-5.40); RED CELL DISTRIBUTION WIDTH 14.2 % (11.6-14.8); WHITE BLOOD COUNT 2.8 K/UL (4.8-10.8)
[2020-02-03 08:31] LABS: ANION GAP 3 mmol/L (5-15); BLOOD UREA NITROGEN 26 mg/dL (7-18); CARBON DIOXIDE 31 MMOL/L (21-32); CHLORIDE 102 MMOL/L (98-107); CREATININE 0.9 MG/DL (0.55-1.30); POTASSIUM 4.1 MMOL/L (3.5-5.1); SODIUM 136 MMOL/L (136-145)
[2020-02-03] MEDS: Lisinopril 10mg tab ORAL SCH (09:29)
[2020-02-03] MEDS: Docusate 100mg cap ORAL SCH ×2 (09:29→17:49)
[2020-02-03] MEDS: Aspirin Baby 81mg ORAL SCH (09:29)
[2020-02-03] MEDS: Metoprolol Succinate XL 50mg tab ORAL SCH (09:29)
[2020-02-03] MEDS: Enoxaparin 40mg Inj SUBQ SCH (09:31)
--- NOTE | 2020-02-03 10:34 | NUR ---
RD ASSESSMENT & RECOMMENDATIONS SEE CARE ACTIVITY FOR COMPLETE ASSESSMENT DAILY ESTIMATED NEEDS: Needs based on Pulmonary 53.5kg abw 25-30 kcals/kg 7817-1670 total kcals 1-1.5 g protein/kg 54-80 g total protein Fluid per MD on lasix NUTRITION DIAGNOSIS: Decreased sodium needs r/t CHF as evidenced by elev BNP (5837), on lasix. CURRENT DIET: Cardiac PO DIET RECOMMENDATIONS--->>> LOW NA diet ADDITIONAL RECOMMENDATIONS: 1) Daily calibrated bed scale wts while on lasix 2) Check lytes daily on lasix, replete as needed 3) Add Snacks in b/w meals 4) diarrhea noted, monitor for continued episodes, lytes 5) B-complex qdaily
--- NOTE | 2020-02-03 10:56 | NUR ---
NURSE NOTES: Loco catheter found on floor, patient said it fell off when she got up. Dr Aguillon notified, no more reinsertion needed.
[2020-02-03 12:00] VITALS: BP 118/60
--- NOTE | 2020-02-03 15:23 | Pulmonology Progress Note ---
Subjective ROS Limited/Unobtainable: Yes Constitutional: Denies: fever Gastrointestinal/Abdominal: Denies: nausea, vomiting, diarrhea Musculoskeletal: Denies: pain Allergies: Coded Allergies: PENICILLINS (Verified Allergy, Unknown, 05/26/18) POTASSIUM (Verified Allergy, Unknown, 01/29/20) Objective Last 24 Hour Vital Signs Date Time Temp Pulse Resp B/P (MAP) Pulse Ox O2 Delivery O2 Flow Rate FiO2 02/03/20 12:00 97.5 63 20 118/60 (79) 96 02/03/20 09:29 115/62 02/03/20 09:29 63 115/62 02/03/20 09:00 Nasal Cannula 2.0 02/03/20 08:00 97.7 63 18 115/62 (79) 97 02/03/20 08:00 63 02/03/20 04:00 97.4 61 20 126/71 (89) 99 02/03/20 04:00 66 02/03/20 00:00 59 02/03/20 00:00 97.5 62 20 105/60 (75) 99 02/02/20 21:00 Nasal Cannula 2.0 02/02/20 20:00 98.1 62 20 108/63 (78) 95 02/02/20 20:00 61 02/02/20 16:00 83 02/02/20 16:00 97.5 68 20 125/65 (85) 96 Intake and Output 02/02/20 02/03/20 19:00 07:00 Intake Total 240 ml 300 ml Output Total 900 ml 900 ml Balance -660 ml -600 ml Intake Oral 240 ml 300 ml Output Urine Total 900 ml 900 ml Laboratory Tests 02/03/20 06:25: White Blood Count 2.8L, Red Blood Count 4.57, Hemoglobin 14.6, Hematocrit 41.8, Mean Corpuscular Volume 92, Mean Corpuscular Hemoglobin 32.0H, Mean Corpuscular Hemoglobin Concent 35.0, Red Cell Distribution Width 14.2, Platelet Count 112L, Mean Platelet Volume 12.9H, Neutrophils (%) (Auto) , Lymphocytes (%) (Auto) , Monocytes (%) (Auto) , Eosinophils (%) (Auto) , Basophils (%) (Auto) , Differential Total Cells Counted 100, Neutrophils % (Manual) 46, Lymphocytes % (Manual) 45, Monocytes % (Manual) 9, Eosinophils % (Manual) 0, Basophils % (Ma nual) 0, Band Neutrophils 0, Platelet Estimate DecreasedL, Platelet Morphology Normal, Red Blood Cell Morphology Normal, Sodium Level 136, Potassium Level 4.1, Chloride Level 102, Carbon Dioxide Level 31, Anion Gap 3L, Blood Urea Nitrogen 26H, Creatinine 0.9, Estimat Glomerular Filtration Rate > 60, Glucose Level 100, Calcium Level 8.0L, Magnesium Level 2.0, Pro-B-Type Natriuretic Peptide 5837H Current Medications Medications (Trade) Dose Ordered Sig/Leslie Route PRN Reason Start Time Stop Time Status Last Admin Dose Admin Acetaminophen (Tylenol) 650 mg Q4H PRN ORAL Mild Pain (Pain Scale 1-3) 01/29/20 09:45 02/28/20 09:44 Al Hydroxide/Mg Hydroxide (Mylanta) 30 ml EVERY 4 HOURS PRN ORAL upset stomach 01/29/20 09:45 02/28/20 09:44 02/01/20 11:15 Aspirin (ASA) 81 mg DAILY ORAL 01/30/20 09:00 03/15/20 08:59 02/03/20 09:29 Dexamethasone Sodium Phosphate (Decadron 4mg/ml vial) 6 mg DAILY IVP 02/03/20 09:00 02/08/20 08:59 02/03/20 09:30 Docusate Sodium (Colace) 100 mg TWICE A DAY ORAL 01/29/20 18:00 02/28/20 17:59 02/03/20 09:29 Enoxaparin Sodium (Lovenox) 40 mg DAILY SUBQ 01/30/20 09:00 04/29/20 08:59 02/03/20 09:31 Ergocalciferol (Drisdol) 50,000 intlu ONCE A WEEK ORAL 01/29/20 12:00 02/28/20 11:59 01/29/20 14:03 Ferrous Sulfate (Feosol) 325 mg BID ORAL 01/29/20 18:00 04/28/20 17:59 02/03/20 09:29 Furosemide (Lasix) 20 mg DAILY IV 02/01/20 09:00 03/02/20 08:59 02/03/20 09:28 Gabapentin (Neurontin) 100 mg THREE TIMES A DAY ORAL 01/29/20 13:00 02/28/20 12:59 02/03/20 12:30 Lisinopril (ZestriL) 10 mg DAILY ORAL 02/01/20 09:00 03/02/20 08:59 02/03/20 09:29 Metoprolol Succinate (Toprol XL) 50 mg DAILY ORAL 01/30/20 09:00 04/29/20 08:59 02/03/20 09:29 Pantoprazole (Protonix) 40 mg DAILY ORAL 01/30/20 09:00 02/29/20 08:59 02/03/20 09:29 Assessment/Plan Assessment/Plan Pulmonary Progress Note Subjective ROS Limited/Unobtainable: No Constitutional: Reports: anorexia Gastrointestinal/Abdominal: Reports: no symptoms Musculoskeletal: Denies: pain Allergies: Coded Allergies: PENICILLINS (Verified Allergy, Unknown, 05/26/18) POTASSIUM (Verified Allergy, Unknown, 01/29/20) Subjective comfortable no distress Objective Vital Signs noted Objective deferred due to COVID Laboratory Tests noted Medications noted Assessment/Plan Assessment/Plan Congestive heart failure, hypertension, asthma, COVID positive, mild hypoxemia, mild azotemia, pneumonia. leukopenia PLAN isolation monitor wbc ID clearance diurese as per cards monitor imaging oxygen as needed nontoxic placement needed as per d/w patient impression, plan, and exam edited and reviewed in detail care discussed with Estiven Roper MD Feb 03, 2020 15:23
[2020-02-03 15:49] VITALS: BP 120/65
--- NOTE | 2020-02-03 18:09 | NUR ---
NURSE HAND-OFF REPORT: Important Events on Shift:FC pulled out, no need to reinsert Patient Status: alert Diet: cardiac Pending Orders: Pending Results/Labs: Pending MD notification: Latest Vital Signs: Temperature 97.7 , Pulse 74 , B/P 120 /65 , Respiratory Rate 18 , O2 SAT 95 , Nasal Cannula, O2 Flow Rate 2.0 . Vital Sign Comment: EKG Rhythm: Sinus Rhythm Rhythm change?: N MD Notified?: Bimsark Xavier MD Response: Message left await call Latest Live Fall Score: 35 Fall Risk: Medium Risk Safety Measures: Call light Within Reach, Bed Alarm Zone 1, Side Rails Side Rails x2, Bed position Low and Locked. Fall Precautions: Yellow Socks . Addendum: 02/03/20 at 1938 by Carol Perry RN HAND-OFF: Report given to Patricia RAGSDALE.
--- NOTE | 2020-02-03 18:21 | Cardiology Progress Note ---
Subjective DATE OF SERVICE: Feb 03, 2020 No CP; troponin levels have normalized. No SOB; on low flow O2. Responding to diuretics rx well; [place] [address] to 5000 range. Monitor: sinus with non-sustained ectopy 2D Echo: EF 30% with mild-mod regurgitation. Objective Last 24 Hour Vital Signs Date Time Temp Pulse Resp B/P (MAP) Pulse Ox O2 Delivery O2 Flow Rate FiO2 02/03/20 16:00 74 02/03/20 15:49 97.7 60 18 120/65 (83) 95 02/03/20 12:00 97.5 63 20 118/60 (79) 96 02/03/20 12:00 63 02/03/20 09:29 115/62 02/03/20 09:29 63 115/62 02/03/20 09:00 Nasal Cannula 2.0 02/03/20 08:00 97.7 63 18 115/62 (79) 97 02/03/20 08:00 63 02/03/20 04:00 97.4 61 20 126/71 (89) 99 02/03/20 04:00 66 02/03/20 00:00 59 02/03/20 00:00 97.5 62 20 105/60 (75) 99 02/02/20 21:00 Nasal Cannula 2.0 02/02/20 20:00 98.1 62 20 108/63 (78) 95 02/02/20 20:00 61 ROS: unchanged from my evaluation of 01/29/20 HEENT: normal ENT inspection RHYTHM: NSR, PVCs, PACs LUNGS: rales bilaterally CARDIAC: normal rate, regular rhythm, normal S1 and S2, systolic murmur - 1/6 systolic murmur at apex ABDOMEN: normal bowel sounds, non tender EXTREMITIES: non-tender, trace edema Laboratory Tests Test 02/03/20 06:25 White Blood Count 2.8 K/UL (4.8-10.8) L Red Blood Count 4.57 M/UL (4.20-5.40) Hemoglobin 14.6 G/DL (12.0-16.0) Hematocrit 41.8 % (37.0-47.0) Mean Corpuscular Volume 92 FL (80-99) Mean Corpuscular Hemoglobin 32.0 PG (27.0-31.0) H Mean Corpuscular Hemoglobin Concent 35.0 G/DL (32.0-36.0) Red Cell Distribution Width 14.2 % (11.6-14.8) Platelet Count 112 K/UL (150-450) L Mean Platelet Volume 12.9 FL (6.5-10.1) H Neutrophils (%) (Auto) % (45.0-75.0) Lymphocytes (%) (Auto) % (20.0-45.0) Monocytes (%) (Auto) % (1.0-10.0) Eosinophils (%) (Auto) % (0.0-3.0) Basophils (%) (Auto) % (0.0-2.0) Differential Total Cells Counted 100 Neutrophils % (Manual) 46 % (45-75) Lymphocytes % (Manual) 45 % (20-45) Monocytes % (Manual) 9 % (1-10) Eosinophils % (Manual) 0 % (0-3) Basophils % (Manual) 0 % (0-2) Band Neutrophils 0 % (0-8) Platelet Estimate Decreased L Platelet Morphology Normal Red Blood Cell Morphology Normal Sodium Level 136 MMOL/L (136-145) Potassium Level 4.1 MMOL/L (3.5-5.1) Chloride Level 102 MMOL/L (98-107) Carbon Dioxide Level 31 MMOL/L (21-32) Anion Gap 3 mmol/L (5-15) L Blood Urea Nitrogen 26 mg/dL (7-18) H Creatinine 0.9 MG/DL (0.55-1.30) Estimat Glomerular Filtration Rate > 60 mL/min (>60) Glucose Level 100 MG/DL (74-106) Calcium Level 8.0 MG/DL (8.5-10.1) L Magnesium Level 2.0 MG/DL (1.8-2.4) Pro-B-Type Natriuretic Peptide 5837 pg/mL (0-125) H Assessment/Plan Assessment/Plan Acute myocardial ischemia Possible NSTE IN Acute/chr systolic and diastolic CHF COVID 19 PNA Hypoxia Ischemic cardiomyopathy Acute renal failure resolved Degenerative valve disease with mitral regurg. Anti-virals O2 Diuresis - furosemide dose titration; will switch to oral dose tomorrow. ACEi therapy added - will titrate further. Titrate beta concepcion Anticoagulation Steroids per pulmonary Anti-plt rx Estiven Xavier MD Feb 03, 2020 18:21
[2020-02-03 20:00] VITALS: BP 124/76
--- NOTE | 2020-02-03 20:00 | NUR ---
NURSE NOTES: RECEIVED PATIENT LYING IN BED, AWAKE, ALERT/ORIENTED X4, VERBALLY RESPONSIVE, DENIES PAIN, NO SIGNS AND SYMPTOMS OF ACUTE CARDIO RESPIRATORY DISTRESS/SHORTNESS OF BREATH, NO PERIPHERAL EDEMA NOTED, DENIES CHEST PAIN, SINUS RHYTHM ON HOT DOG VENDOR. IV INTACT TO LEFT FOREARM/NO SIGNS OF INFILTRATION, FLUSHING WITHOUT DIFFICULTY, DENIES PAIN. NO COMPLAINT OF GI DISCOMFORT, NO N/V/D, BEDSIDE COMMODE AVAILABLE FOR USAGE. SIDE RAILS UP X2 FOR MOBILITY, BED IN LOWEST POSITION FOR SAFETY, ENCOURAGED PATIENT TO UTILIZE CALL LIGHT FOR ASSISTANCE, VERBALIZED UNDERSTANDING, CONTINUE WITH CURRENT PLAN OF CARE. NAD. DCP WITH [facility].
[2020-02-04] VITALS (8 sets, daily range): BP systolic 102–131; BP diastolic 58–82
[2020-02-04 06:33] LABS: CALCIUM 8.6 MG/DL (8.5-10.1); POTASSIUM 4.2 MMOL/L (3.5-5.1)
--- NOTE | 2020-02-04 07:31 | NUR ---
NURSE HAND-OFF REPORT: Important Events on Shift:[UNEVENTFUL NIGHT, RESTED WELL] Patient Status: [STABLE, AFEBRILE] Diet: [CARDIAC] Pending Orders: [AM LABS] Pending Results/Labs:[] Pending MD notification:[] Latest Vital Signs: Temperature 97.6 , Pulse 50 , B/P 121 /82 , Respiratory Rate 18 , O2 SAT 94 , Nasal Cannula, O2 Flow Rate 2.0 . Vital Sign Comment: [STABLE, AFEBRILE] EKG Rhythm: sb with pvc Rhythm change?: N Notified?: N -Dr. Duc ESTRELLA Response: Message left await call Latest Live Fall Score: 35 Fall Risk: Medium Risk Safety Measures: Call light Within Reach, Bed Alarm Zone 1, Side Rails Side Rails x2, Bed position Low and Locked. Fall Precautions: Yellow Socks Report given to [CAROLRN].
--- NOTE | 2020-02-04 07:50 | NUR ---
NURSE NOTES: pt AOx4. pt is having breakfast at this time. pt on monitor worker no signs of cardiac or respiratory distress. Bed locked and in lowest position, call light within reach. Will continue to monitor pt
--- NOTE | 2020-02-04 08:36 | Pulmonology Progress Note ---
Subjective ROS Limited/Unobtainable: Yes Constitutional: Denies: fever Gastrointestinal/Abdominal: Denies: nausea, vomiting, diarrhea Musculoskeletal: Denies: pain Allergies: Coded Allergies: PENICILLINS (Verified Allergy, Unknown, 05/26/18) POTASSIUM (Verified Allergy, Unknown, 01/29/20) Subjective comfortable no distress Objective Last 24 Hour Vital Signs Date Time Temp Pulse Resp B/P (MAP) Pulse Ox O2 Delivery O2 Flow Rate FiO2 02/04/20 04:00 97.5 72 20 119/75 (90) 96 02/04/20 03:25 50 02/04/20 00:00 97.6 78 18 121/82 (95) 94 02/04/20 00:00 57 02/03/20 21:00 Nasal Cannula 2.0 02/03/20 20:00 97.3 66 18 124/76 (92) 96 02/03/20 19:07 72 02/03/20 16:00 74 02/03/20 15:49 97.7 60 18 120/65 (83) 95 02/03/20 12:00 97.5 63 20 118/60 (79) 96 02/03/20 12:00 63 02/03/20 09:29 115/62 02/03/20 09:29 63 115/62 02/03/20 09:00 Nasal Cannula 2.0 Intake and Output 02/03/20 02/04/20 19:00 07:00 Intake Total 360 ml 360 ml Balance 360 ml 360 ml Intake Oral 360 ml 360 ml # Voids 4 3 Objective deferred due to COVID Laboratory Tests 02/04/20 05:30: Sodium Level 135L, Potassium Level 4.2, Chloride Level 100, Carbon Dioxide Level 32, Anion Gap 3L, Blood Urea Nitrogen 32H, Creatinine 1.0, Estimat Glomerular Filtration Rate 53.1, Glucose Level 95, Calcium Level 8.6, Magnesium Level 1.9, Pro-B-Type Natriuretic Peptide 4787H Current Medications Medications (Trade) Dose Ordered Sig/Leslie Route PRN Reason Start Time Stop Time Status Last Admin Dose Admin Acetaminophen (Tylenol) 650 mg Q4H PRN ORAL Mild Pain (Pain Scale 1-3) 01/29/20 09:45 02/28/20 09:44 Al Hydroxide/Mg Hydroxide (Mylanta) 30 ml EVERY 4 HOURS PRN ORAL upset stomach 01/29/20 09:45 02/28/20 09:44 02/01/20 11:15 Aspirin (ASA) 81 mg DAILY ORAL 01/30/20 09:00 03/15/20 08:59 02/03/20 09:29 Dexamethasone Sodium Phosphate (Decadron 4mg/ml vial) 6 mg DAILY IVP 02/03/20 09:00 02/08/20 08:59 02/03/20 09:30 Docusate Sodium (Colace) 100 mg TWICE A DAY ORAL 01/29/20 18:00 02/28/20 17:59 02/03/20 17:49 Enoxaparin Sodium (Lovenox) 40 mg DAILY SUBQ 01/30/20 09:00 04/29/20 08:59 02/03/20 09:31 Ergocalciferol (Drisdol) 50,000 intlu ONCE A WEEK ORAL 01/29/20 12:00 02/28/20 11:59 01/29/20 14:03 Ferrous Sulfate (Feosol) 325 mg BID ORAL 01/29/20 18:00 04/28/20 17:59 02/03/20 17:49 Furosemide (Lasix) 20 mg DAILY ORAL 02/04/20 09:00 03/05/20 08:59 Gabapentin (Neurontin) 100 mg THREE TIMES A DAY ORAL 01/29/20 13:00 02/28/20 12:59 02/03/20 17:49 Lisinopril (ZestriL) 20 mg DAILY ORAL 02/04/20 09:00 03/05/20 08:59 Metoprolol Succinate (Toprol XL) 50 mg DAILY ORAL 01/30/20 09:00 04/29/20 08:59 02/03/20 09:29 Pantoprazole (Protonix) 40 mg DAILY ORAL 01/30/20 09:00 02/29/20 08:59 02/03/20 09:29 Assessment/Plan Assessment/Plan Congestive heart failure, hypertension, asthma, COVID positive, mild hypoxemia, mild azotemia, pneumonia. leukopenia PLAN isolation monitor wbc; will call heme ID clearance diurese as per cards monitor imaging oxygen as needed and taper off nontoxic placement needed as per d/w patient case management aware impression, plan, and exam edited and reviewed in detail care discussed with Parag De Guzman MD Feb 04, 2020 08:36
[2020-02-04] MEDS: Lisinopril 10mg tab ORAL SCH ×2 (09:00→10:24)
[2020-02-04] MEDS: Metoprolol Succinate XL 50mg tab ORAL SCH ×2 (09:00→10:23)
[2020-02-04 09:31] LABS: BASOPHILS % (AUTO) 0.6 % (0.0-2.0); EOSINOPHILS % (AUTO) 0.5 % (0.0-3.0); HEMATOCRIT 48.9 % (37.0-47.0); HEMOGLOBIN 16.3 G/DL (12.0-16.0); LYMPHOCYTES % (AUTO) 39.2 % (20.0-45.0); MEAN CORPUSCULAR VOLUME 96 FL (80-99); MONOCYTES % (AUTO) 8.3 % (1.0-10.0); NEUTROPHILS % (AUTO) 51.3 % (45.0-75.0); PLATELET COUNT 124 K/UL (150-450); RED BLOOD COUNT 5.08 M/UL (4.20-5.40); RED CELL DISTRIBUTION WIDTH 12.5 % (11.6-14.8); WHITE BLOOD COUNT 4.5 K/UL (4.8-10.8)
[2020-02-04] MEDS: Docusate 100mg cap ORAL SCH ×2 (10:23→18:07)
[2020-02-04] MEDS: Aspirin Baby 81mg ORAL SCH (10:24)
[2020-02-04] MEDS: Enoxaparin 40mg Inj SUBQ SCH (10:25)
--- NOTE | 2020-02-04 11:16 | Infectious Diseases Prog Note ---
Assessment/Plan Assessment/Plan antibiotics : none A 1. COVID-19 pneumonia. on 2 liters of oxygen with 96 % O2 saturation. s/p remdesivir 2. Hypertension. 3. Asthma. 4. CHF P 1. continue Decadron day #7. 2. Continue isolation. Subjective Constitutional: Denies: fever, chills Respiratory: Reports: dry cough; Denies: shortness of breath Gastrointestinal/Abdominal: Denies: nausea, vomiting, diarrhea Musculoskeletal: Denies: pain Allergies: Coded Allergies: PENICILLINS (Verified Allergy, Unknown, 05/26/18) POTASSIUM (Verified Allergy, Unknown, 01/29/20) Objective Last 24 Hour Vital Signs Date Time Temp Pulse Resp B/P (MAP) Pulse Ox O2 Delivery O2 Flow Rate FiO2 02/04/20 10:08 97.5 55 18 127/58 (81) 98 02/04/20 08:00 97.5 55 18 127/58 (81) 98 02/04/20 04:00 97.5 72 20 119/75 (90) 96 02/04/20 03:25 50 02/04/20 00:00 97.6 78 18 121/82 (95) 94 02/04/20 00:00 57 02/03/20 21:00 Nasal Cannula 2.0 02/03/20 20:00 97.3 66 18 124/76 (92) 96 02/03/20 19:07 72 02/03/20 16:00 74 02/03/20 15:49 97.7 60 18 120/65 (83) 95 02/03/20 12:00 97.5 63 20 118/60 (79) 96 02/03/20 12:00 63 Height (Feet): 5 Height (Inches): 1.00 Weight (Pounds): 156 Laboratory Tests Test 02/04/20 05:30 White Blood Count 4.5 K/UL (4.8-10.8) #L Red Blood Count 5.08 M/UL (4.20-5.40) Hemoglobin 16.3 G/DL (12.0-16.0) H Hematocrit 48.9 % (37.0-47.0) H Mean Corpuscular Volume 96 FL (80-99) Mean Corpuscular Hemoglobin 32.1 PG (27.0-31.0) H Mean Corpuscular Hemoglobin Concent 33.3 G/DL (32.0-36.0) Red Cell Distribution Width 12.5 % (11.6-14.8) Platelet Count 124 K/UL (150-450) L Mean Platelet Volume 12.6 FL (6.5-10.1) H Neutrophils (%) (Auto) 51.3 % (45.0-75.0) Lymphocytes (%) (Auto) 39.2 % (20.0-45.0) Monocytes (%) (Auto) 8.3 % (1.0-10.0) Eosinophils (%) (Auto) 0.5 % (0.0-3.0) Basophils (%) (Auto) 0.6 % (0.0-2.0) Sodium Level 135 MMOL/L (136-145) L Potassium Level 4.2 MMOL/L (3.5-5.1) Chloride Level 100 MMOL/L (98-107) Carbon Dioxide Level 32 MMOL/L (21-32) Anion Gap 3 mmol/L (5-15) L Blood Urea Nitrogen 32 mg/dL (7-18) H Creatinine 1.0 MG/DL (0.55-1.30) Estimat Glomerular Filtration Rate 53.1 mL/min (>60) Glucose Level 95 MG/DL (74-106) Calcium Level 8.6 MG/DL (8.5-10.1) Magnesium Level 1.9 MG/DL (1.8-2.4) Pro-B-Type Natriuretic Peptide 4787 pg/mL (0-125) H Current Medications Medications (Trade) Dose Ordered Sig/Leslie Route PRN Reason Start Time Stop Time Status Last Admin Dose Admin Acetaminophen (Tylenol) 650 mg Q4H PRN ORAL Mild Pain (Pain Scale 1-3) 01/29/20 09:45 02/28/20 09:44 Al Hydroxide/Mg Hydroxide (Mylanta) 30 ml EVERY 4 HOURS PRN ORAL upset stomach 01/29/20 09:45 02/28/20 09:44 02/01/20 11:15 Aspirin (ASA) 81 mg DAILY ORAL 01/30/20 09:00 03/15/20 08:59 02/04/20 10:24 Dexamethasone Sodium Phosphate (Decadron 4mg/ml vial) 6 mg DAILY IVP 02/03/20 09:00 02/08/20 08:59 02/04/20 10:22 Docusate Sodium (Colace) 100 mg TWICE A DAY ORAL 01/29/20 18:00 02/28/20 17:59 02/04/20 10:23 Enoxaparin Sodium (Lovenox) 40 mg DAILY SUBQ 01/30/20 09:00 04/29/20 08:59 02/04/20 10:25 Ergocalciferol (Drisdol) 50,000 intlu ONCE A WEEK ORAL 01/29/20 12:00 02/28/20 11:59 01/29/20 14:03 Ferrous Sulfate (Feosol) 325 mg BID ORAL 01/29/20 18:00 04/28/20 17:59 02/04/20 10:23 Furosemide (Lasix) 20 mg DAILY ORAL 02/04/20 09:00 03/05/20 08:59 02/04/20 10:22 Gabapentin (Neurontin) 100 mg THREE TIMES A DAY ORAL 01/29/20 13:00 02/28/20 12:59 02/04/20 10:22 Lisinopril (ZestriL) 20 mg DAILY ORAL 02/04/20 09:00 03/05/20 08:59 Metoprolol Succinate (Toprol XL) 50 mg DAILY ORAL 01/30/20 09:00 04/29/20 08:59 02/03/20 09:29 Pantoprazole (Protonix) 40 mg DAILY ORAL 01/30/20 09:00 02/29/20 08:59 02/04/20 10:23 Carla Elizabeth MD Feb 04, 2020 11:16
--- NOTE | 2020-02-04 13:42 | Diagnostic Imaging Report ---
Indication: Shortness of breath Technique: One view of the chest Comparison: 01/29/2020 Findings: Heart is enlarged. There is a small left pleural effusion again demonstrated. Retrocardiac opacity again demonstrated, previously thought to represent a hiatal hernia. Mild interstitial congestive changes persist, stable. Degenerative changes of both shoulders are again noted Impression: Unchanged, over 6 days, findings as above.
--- NOTE | 2020-02-04 16:28 | NUR ---
CASE MANAGEMENT:REVIEW 02/04/20 SI: COVID PNEUMONIA 97.5 55 18 127/58 98% ON 2L/NC IS: LASIX PO QD LISINOPRIL PO QD IV DECADRON QD LOVENOX SQ QD TOPROL XL PO QD ASA PO QD PROTONIX PO QD : TELEMETRY STATUS---> TRANSFER TO MED/SURG DCP: FROM HOME PLAN: COMPLETED REMDESIVIR ASKED NURSING TO WEAN OXYGEN
--- NOTE | 2020-02-04 17:12 | NUR ---
NURSE NOTES: notified korytAmber Paredes about 2 consecutive B/s higher than 200. no new orders given.
--- NOTE | 2020-02-04 19:25 | NUR ---
NURSE NOTES: Important Events on Shift: Received report from Sanjuana Elliott RN. Pt in bed, alert, AO x 4, denies pain, no signs or symptoms of distress noted. Pt has order to xfer to [place], awaiting bed. Will continue plan of care and close monitoring. Patient Status: Stable throughout shift per report. Diet: cardiac Pending Orders: transfer to [place] Pending Results/Labs: BMP, CBC Pending MD notification:None Latest Vital Signs: Temperature 97.6 , Pulse 72 , B/P 121 /82 , Respiratory Rate 18 , O2 SAT 94 , Nasal Cannula, O2 Flow Rate 1.0 . Vital Sign Comment: stable throughout shift. EKG Rhythm: Sinus Rhythm Rhythm change?: N Notified?: N MD Response: - Latest Live Fall Score: 35 Fall Risk: Medium Risk Safety Measures: Call light Within Reach, Bed Alarm Zone 1, Side Rails Side Rails x2, Bed position Low and Locked. Fall Precautions: YES Yellow Socks YES
--- NOTE | 2020-02-04 20:10 | NUR ---
NURSE HAND-OFF REPORT: Important Events on Shift:[] pt needs to do IS at leat 10times / hr. he is aware and complying Patient Status: [] full code Diet: []cardiac Pending Orders: [] Pending Results/Labs:[] Pending MD notification:[] Latest Vital Signs: Temperature 96.7 , Pulse 62 , B/P 102 /60 , Respiratory Rate 18 , O2 SAT 95 , Nasal Cannula, O2 Flow Rate 1.0 . Vital Sign Comment: [] EKG Rhythm: Sinus Rhythm Rhythm change?: N Notified?: N -Dr. Duc ESTRELLA Response: Message left await call Latest Live Fall Score: 35 Fall Risk: Medium Risk Safety Measures: Call light Within Reach, Bed Alarm Zone 1, Side Rails Side Rails x2, Bed position Low and Locked. Fall Precautions: y Yellow Socks y Report given to Sai/MELYSSA []. Addendum: 02/04/20 at 2017 by Sanjuana Elliott RN wrong pt
--- NOTE | 2020-02-04 20:12 | NUR ---
NURSE HAND-OFF REPORT: Important Events on Shift:[] no Patient Status: [] full Diet: [] cardiac Pending Orders: [] Pending Results/Labs:[] Pending MD notification:[] Latest Vital Signs: Temperature 96.7 , Pulse 62 , B/P 102 /60 , Respiratory Rate 18 , O2 SAT 95 , Nasal Cannula, O2 Flow Rate 1.0 . Vital Sign Comment: [] EKG Rhythm: Sinus Rhythm Rhythm change?: N MD Notified?: N -Dr. Duc ESTRELLA Response: Message left await call Latest Live Fall Score: 35 Fall Risk: Medium Risk Safety Measures: Call light Within Reach, Bed Alarm Zone 1, Side Rails Side Rails x2, Bed position Low and Locked. Fall Precautions: y Yellow Socks y Report given to Mick/ Rn [].
--- NOTE | 2020-02-04 20:30 | NUR ---
NURSE NOTES: Important Events on Shift: Received report from simran Scott transferred fro telemetry, [address], belongings checked at bedside, wearing dentures and pt has $788.00 checked at bedside, RN. Pt in bed, alert, AO x 4, denies pain, no signs or symptoms of distress noted. Will continue plan of care and close monitoring. Pt seated in bed, bed is locked, side rails x2, alarm on, call light within reach
[2020-02-05] VITALS: BP 121/82
--- NOTE | 2020-02-05 01:10 | Cardiology Progress Note ---
Subjective DATE OF SERVICE: Feb 04, 2020 No CP; troponin levels have normalized. No SOB; on low flow O2. Responding to diuretics rx well; [place] [address] to 5000 range. Monitor: sinus with non-sustained ectopy 2D Echo: EF 30% with mild-mod regurgitation. Objective Last 24 Hour Vital Signs Date Time Temp Pulse Resp B/P (MAP) Pulse Ox O2 Delivery O2 Flow Rate FiO2 02/04/20 16:00 96.7 61 18 102/60 (74) 95 02/04/20 16:00 62 02/04/20 12:00 96.4 67 18 116/73 (87) 100 02/04/20 12:00 63 02/04/20 10:08 97.5 55 18 127/58 (81) 98 02/04/20 09:00 Nasal Cannula 1.0 02/04/20 08:00 56 02/04/20 08:00 97.5 55 18 127/58 (81) 98 02/04/20 04:00 97.5 72 20 119/75 (90) 96 02/04/20 03:25 50 ROS: unchanged from my evaluation of 01/29/20 HEENT: normal ENT inspection RHYTHM: NSR, PVCs, PACs LUNGS: rales bilaterally CARDIAC: normal rate, regular rhythm, normal S1 and S2, systolic murmur - 1/6 systolic murmur at apex ABDOMEN: normal bowel sounds, non tender EXTREMITIES: non-tender, trace edema Laboratory Tests Test 02/04/20 05:30 White Blood Count 4.5 K/UL (4.8-10.8) #L Red Blood Count 5.08 M/UL (4.20-5.40) Hemoglobin 16.3 G/DL (12.0-16.0) H Hematocrit 48.9 % (37.0-47.0) H Mean Corpuscular Volume 96 FL (80-99) Mean Corpuscular Hemoglobin 32.1 PG (27.0-31.0) H Mean Corpuscular Hemoglobin Concent 33.3 G/DL (32.0-36.0) Red Cell Distribution Width 12.5 % (11.6-14.8) Platelet Count 124 K/UL (150-450) L Mean Platelet Volume 12.6 FL (6.5-10.1) H Neutrophils (%) (Auto) 51.3 % (45.0-75.0) Lymphocytes (%) (Auto) 39.2 % (20.0-45.0) Monocytes (%) (Auto) 8.3 % (1.0-10.0) Eosinophils (%) (Auto) 0.5 % (0.0-3.0) Basophils (%) (Auto) 0.6 % (0.0-2.0) Sodium Level 135 MMOL/L (136-145) L Potassium Level 4.2 MMOL/L (3.5-5.1) Chloride Level 100 MMOL/L (98-107) Carbon Dioxide Level 32 MMOL/L (21-32) Anion Gap 3 mmol/L (5-15) L Blood Urea Nitrogen 32 mg/dL (7-18) H Creatinine 1.0 MG/DL (0.55-1.30) Estimat Glomerular Filtration Rate 53.1 mL/min (>60) Glucose Level 95 MG/DL (74-106) Calcium Level 8.6 MG/DL (8.5-10.1) Magnesium Level 1.9 MG/DL (1.8-2.4) Pro-B-Type Natriuretic Peptide 4787 pg/mL (0-125) H Assessment/Plan Assessment/Plan Acute myocardial ischemia Possible NSTE FL Acute/chr systolic and diastolic CHF COVID 19 PNA Hypoxia Ischemic cardiomyopathy Acute renal failure resolved Degenerative valve disease with mitral regurg. Anti-virals O2 - low flow as needed Diuresis - furosemide dose titration; will switch to oral dose today. ACEi therapy added - will titrate as BP tolerates. Titrate beta concepcion Anticoagulation Steroids per pulmonary Anti-plt rx Estiven Xavier MD Feb 05, 2020 01:10
[2020-02-05 04:00] VITALS: BP 118/74
--- NOTE | 2020-02-05 06:56 | Consultation ---
History of Present Illness General Chief Complaint: Dyspnea/Respdistress Present Illness Allergies: Coded Allergies: PENICILLINS (Verified Allergy, Unknown, 05/26/18) POTASSIUM (Verified Allergy, Unknown, 01/29/20) Medication History Scheduled Acetaminophen* (Acetaminophen Extra Strength*), 500 MG ORAL Q6H, (Reported) Aspirin* (Aspir 81*), 81 MG ORAL DAILY, (Reported) Cephalexin* (Keflex*), 500 MG ORAL EVERY 6 HOURS Docusate Sodium* (Docusate Sodium*), 100 MG ORAL TWICE A DAY, (Reported) Ergocalciferol (Vitamin D2)* (Vitamin D*), 50,000 UNIT ORAL ONCE A WEEK, (Reported) Gabapentin* (Gabapentin*), 100 MG ORAL THREE TIMES A DAY, (Reported) Metoprolol Succinate* (Metoprolol Succinate*), 50 MG ORAL DAILY, (Reported) Scheduled PRN Methocarbamol* (Robaxin-500*), 500 MG ORAL QID PRN for For Pain, (Reported) Tramadol Hcl* (Ultram*), 50 MG ORAL Q6H PRN for For Pain, (Reported) Miscellaneous Medications Ferrous Sulfate (Iron), 325 MG PO, (Reported) Patient History Healthcare decision maker Resuscitation status Advanced Directive on File Physical Exam Last 24 Hour Vital Signs Date Time Temp Pulse Resp B/P (MAP) Pulse Ox O2 Delivery O2 Flow Rate FiO2 02/05/20 04:00 97.0 69 18 118/74 (89) 96 02/05/20 00:00 97.6 72 18 121/82 (95) 94 02/04/20 21:00 Nasal Cannula 1.0 02/04/20 20:00 97.3 69 18 123/75 (91) 96 02/04/20 16:00 96.7 61 18 102/60 (74) 95 02/04/20 16:00 62 02/04/20 12:00 96.4 67 18 116/73 (87) 100 02/04/20 12:00 63 02/04/20 10:08 97.5 55 18 127/58 (81) 98 02/04/20 09:00 Nasal Cannula 1.0 02/04/20 08:00 56 02/04/20 08:00 97.5 55 18 127/58 (81) 98 Intake and Output 02/04/20 02/05/20 19:00 07:00 Intake Total 800 ml Balance 800 ml Intake Oral 800 ml # Voids 4 3 # Bowel Movements 2 Height (Feet): 5 Height (Inches): 1.00 Weight (Pounds): 156 Medications Current Medications Medications (Trade) Dose Ordered Sig/Leslie Route PRN Reason Start Time Stop Time Status Last Admin Dose Admin Acetaminophen (Tylenol) 650 mg Q4H PRN ORAL Mild Pain (Pain Scale 1-3) 01/29/20 09:45 02/28/20 09:44 Al Hydroxide/Mg Hydroxide (Mylanta) 30 ml EVERY 4 HOURS PRN ORAL upset stomach 01/29/20 09:45 02/28/20 09:44 02/01/20 11:15 Aspirin (ASA) 81 mg DAILY ORAL 01/30/20 09:00 03/15/20 08:59 02/04/20 10:24 Dexamethasone Sodium Phosphate (Decadron 4mg/ml vial) 6 mg DAILY IVP 02/03/20 09:00 02/08/20 08:59 02/04/20 10:22 Docusate Sodium (Colace) 100 mg TWICE A DAY ORAL 01/29/20 18:00 02/28/20 17:59 02/04/20 18:07 Enoxaparin Sodium (Lovenox) 40 mg DAILY SUBQ 01/30/20 09:00 04/29/20 08:59 02/04/20 10:25 Ergocalciferol (Drisdol) 50,000 intlu ONCE A WEEK ORAL 01/29/20 12:00 02/28/20 11:59 01/29/20 14:03 Ferrous Sulfate (Feosol) 325 mg BID ORAL 01/29/20 18:00 04/28/20 17:59 02/04/20 18:07 Furosemide (Lasix) 20 mg DAILY ORAL 02/04/20 09:00 03/05/20 08:59 02/04/20 10:22 Gabapentin (Neurontin) 100 mg THREE TIMES A DAY ORAL 01/29/20 13:00 02/28/20 12:59 02/04/20 18:08 Lisinopril (ZestriL) 20 mg DAILY ORAL 02/04/20 09:00 03/05/20 08:59 Metoprolol Succinate (Toprol XL) 50 mg DAILY ORAL 01/30/20 09:00 04/29/20 08:59 02/03/20 09:29 Pantoprazole (Protonix) 40 mg DAILY ORAL 01/30/20 09:00 02/29/20 08:59 02/04/20 10:23 Assessment/Plan Assessment/Plan: Hematology Consultation REQ MD: Pal Cordero RFC: Pancytopenia DOS: 02/05/2020 HPI This is an 84-year-old female with history of high blood pressure and asthma. She presents with complaint pressure distress. Family called 911 because she has difficulty breathing. Patient says been ongoing all day but worse tonight. There are smokers in the house. No fever or chills. No nausea no vomiting. Coughing but nonproductive in nature. Patient says she has pneumonia last year. Had negative Covid testing done 2 weeks ago. Denies any chest pain but has tightness because of the breathing problem. Per EMS, she was 94% on room air. Noted to have covid this adm and heme consulted, s/p remdesivir and decadron as well. Coded Allergies: PENICILLINS (Verified Allergy, Unknown, 05/26/18) POTASSIUM (Verified Allergy, Unknown, 01/29/20) Patient History Past Medical History: see triage record, old chart reviewed, HTN, asthma Past Surgical History: other Pertinent Family History: none Social History: Denies: smoking Now: No Immunizations: other Reviewed Nursing Documentation: PMH: Agreed; PSxH: Agreed Nursing Documentation-PMH Hx Cardiac Problems: No Hx Hypertension: Yes Hx Cancer: No Hx Gastrointestinal Problems: Yes Hx Neurological Problems: No Review of Systems Eye: Denies: eye pain, blurred vision ENT: Denies: ear pain, nose congestion, throat swelling Respiratory: Reports: cough, shortness of breath Cardiovascular: Denies: chest pain, palpitations Gastrointestinal: Denies: abdominal pain, diarrhea, nausea, vomiting Musculoskeletal: Denies: back pain, joint pain Skin: Denies: rash Neurological: Denies: headache, numbness Endocrine: Denies: increased thirst, increased urine Hematologic/Lymphatic: Denies: easy bruising All Other Systems: negative except mentioned in HPI Physical Exam Vitals with tachycardia Sp02 EP Interpretation: reviewed, normal General Appearance: alert, moderate distress ENT: hearing grossly normal, normal pharynx Neck: full range of motion, supple, no meningismus Respiratory: chest non-tender, respiratory distress Cardiovascular: regular rate, rhythm, no murmur Gastrointestinal: normal bowel sounds, non tender Musculoskeletal: back normal Psychiatric: anxious Labs: notd Imaging reviewed Assessment and Recs # Pancytopenia is likely related to covid19 --> reviewed Id recs, s/p remdisivir as well as steriods -> peripheral smear is reviewed --> Abx reviewed --> hep and hiv have been ordered --> imaging abd as needed --> transfuse as prn basis --> hold off bone marrow biopsy # Elev ddimer is due to covid --> no e/o dvt of lower ext # Acute respiratory failure due to COVID-19 --> per pulm recs # Pneumonia due to COVID-19 virus --> imaging as needed pulm # CHF exacerbation --> diuresis as needed # Hypertension --> as per cards # Tachycardia --> per cards recs, noted Appreciate consultation and dw Anupam Kim MD Feb 05, 2020 06:56
--- NOTE | 2020-02-05 07:33 | Pulmonology Progress Note ---
Subjective ROS Limited/Unobtainable: Yes Constitutional: Denies: fever, chills Gastrointestinal/Abdominal: Denies: nausea, vomiting, diarrhea Musculoskeletal: Denies: pain Allergies: Coded Allergies: PENICILLINS (Verified Allergy, Unknown, 05/26/18) POTASSIUM (Verified Allergy, Unknown, 01/29/20) Subjective comfortable no distress off antibiotics wbc recovered Objective Last 24 Hour Vital Signs Date Time Temp Pulse Resp B/P (MAP) Pulse Ox O2 Delivery O2 Flow Rate FiO2 02/05/20 04:00 97.0 69 18 118/74 (89) 96 02/05/20 00:00 97.6 72 18 121/82 (95) 94 02/04/20 21:00 Nasal Cannula 1.0 02/04/20 20:00 97.3 69 18 123/75 (91) 96 02/04/20 16:00 96.7 61 18 102/60 (74) 95 02/04/20 16:00 62 02/04/20 12:00 96.4 67 18 116/73 (87) 100 02/04/20 12:00 63 02/04/20 10:08 97.5 55 18 127/58 (81) 98 02/04/20 09:00 Nasal Cannula 1.0 02/04/20 08:00 56 02/04/20 08:00 97.5 55 18 127/58 (81) 98 Intake and Output 02/04/20 02/05/20 19:00 07:00 Intake Total 800 ml Balance 800 ml Intake Oral 800 ml # Voids 4 3 # Bowel Movements 2 Objective deferred due to COVID Current Medications Medications (Trade) Dose Ordered Sig/Leslie Route PRN Reason Start Time Stop Time Status Last Admin Dose Admin Acetaminophen (Tylenol) 650 mg Q4H PRN ORAL Mild Pain (Pain Scale 1-3) 01/29/20 09:45 02/28/20 09:44 Al Hydroxide/Mg Hydroxide (Mylanta) 30 ml EVERY 4 HOURS PRN ORAL upset stomach 01/29/20 09:45 02/28/20 09:44 02/01/20 11:15 Aspirin (ASA) 81 mg DAILY ORAL 01/30/20 09:00 03/15/20 08:59 02/04/20 10:24 Dexamethasone Sodium Phosphate (Decadron 4mg/ml vial) 6 mg DAILY IVP 02/03/20 09:00 12/4/20 08:59 02/04/20 10:22 Docusate Sodium (Colace) 100 mg TWICE A DAY ORAL 01/29/20 18:00 02/28/20 17:59 02/04/20 18:07 Enoxaparin Sodium (Lovenox) 40 mg DAILY SUBQ 01/30/20 09:00 04/29/20 08:59 02/04/20 10:25 Ergocalciferol (Drisdol) 50,000 intlu ONCE A WEEK ORAL 01/29/20 12:00 02/28/20 11:59 01/29/20 14:03 Ferrous Sulfate (Feosol) 325 mg BID ORAL 01/29/20 18:00 04/28/20 17:59 02/04/20 18:07 Furosemide (Lasix) 20 mg DAILY ORAL 02/04/20 09:00 03/05/20 08:59 02/04/20 10:22 Gabapentin (Neurontin) 100 mg THREE TIMES A DAY ORAL 01/29/20 13:00 02/28/20 12:59 02/04/20 18:08 Lisinopril (ZestriL) 20 mg DAILY ORAL 02/04/20 09:00 03/05/20 08:59 Metoprolol Succinate (Toprol XL) 50 mg DAILY ORAL 01/30/20 09:00 04/29/20 08:59 02/03/20 09:29 Pantoprazole (Protonix) 40 mg DAILY ORAL 01/30/20 09:00 02/29/20 08:59 02/04/20 10:23 Assessment/Plan Assessment/Plan Congestive heart failure, hypertension, asthma, COVID positive, mild hypoxemia, mild azotemia, pneumonia. leukopenia PLAN isolation recheck PCR ID clearance diurese monitor imaging oxygen to off nontoxic placement needed as per d/w patient case management aware impression, plan, and exam edited and reviewed in detail care discussed with Parag De Guzman MD Feb 05, 2020 07:33
[2020-02-05 08:00] VITALS: BP 120/78
--- NOTE | 2020-02-05 08:00 | NUR ---
NURSE NOTES: Received report from MELYSSA Alejandro. Rounding done. Pt a/o x 4, in bed. No SOB noted. Denies any pain at this time. Discussed plan of care. Lt FA IV access in placed. Bed in lowest position, call light within reach. Will continue to monitor.
--- NOTE | 2020-02-05 08:28 | NUR ---
NURSE HAND-OFF REPORT: Important Events on Shift Transferred from tele to M/S Patient Status: [] full Diet: [] cardiac Pending Orders: [] Pending Results/Labs:[] Pending MD notification:[] Latest Vital Signs: Temperature 96.7 , Pulse 62 , B/P 102 /60 , Respiratory Rate 18 , O2 SAT 95 , Nasal Cannula, O2 Flow Rate 1.0 . Vital Sign Comment: [] Latest Live Fall Score: 35 Fall Risk: Medium Risk Safety Measures: Call light Within Reach, Bed Alarm Zone 1, Side Rails Side Rails x2, Bed position Low and Locked. Fall Precautions: y Yellow Socks y Report given to Avery RAGSDALE
[2020-02-05] MEDS: Aspirin Baby 81mg ORAL SCH (09:12)
[2020-02-05] MEDS: Metoprolol Succinate XL 50mg tab ORAL SCH (09:12)
[2020-02-05] MEDS: Docusate 100mg cap ORAL SCH ×2 (09:13→17:06)
[2020-02-05] MEDS: Lisinopril 10mg tab ORAL SCH (09:13)
[2020-02-05] MEDS: Enoxaparin 40mg Inj SUBQ SCH (09:14)
--- NOTE | 2020-02-05 11:40 | Infectious Diseases Prog Note ---
Assessment/Plan Assessment/Plan antibiotics : none A 1. COVID-19 pneumonia. on 1 liter of oxygen with 100 % O2 saturation. s/p remdesivir 2. Hypertension. 3. Asthma. 4. CHF P 1. continue Decadron day #8 2. Continue isolation. Subjective Constitutional: Denies: fever, chills Respiratory: Reports: dry cough; Denies: shortness of breath Gastrointestinal/Abdominal: Denies: nausea, vomiting, diarrhea Musculoskeletal: Denies: pain Allergies: Coded Allergies: PENICILLINS (Verified Allergy, Unknown, 05/26/18) POTASSIUM (Verified Allergy, Unknown, 01/29/20) Objective Last 24 Hour Vital Signs Date Time Temp Pulse Resp B/P (MAP) Pulse Ox O2 Delivery O2 Flow Rate FiO2 02/05/20 09:13 120/78 02/05/20 09:12 66 120/78 02/05/20 09:00 Nasal Cannula 1.0 02/05/20 08:00 97.2 66 20 120/78 (92) 98 02/05/20 04:00 97.0 69 18 118/74 (89) 96 02/05/20 00:00 97.6 72 18 121/82 (95) 94 02/04/20 21:00 Nasal Cannula 1.0 02/04/20 20:00 97.3 69 18 123/75 (91) 96 02/04/20 16:00 96.7 61 18 102/60 (74) 95 02/04/20 16:00 62 02/04/20 12:00 96.4 67 18 116/73 (87) 100 02/04/20 12:00 63 Height (Feet): 5 Height (Inches): 1.00 Weight (Pounds): 156 Laboratory Tests Test 02/05/20 11:15 Sodium Level Pending Potassium Level Pending Chloride Level Pending Carbon Dioxide Level Pending Blood Urea Nitrogen Pending Creatinine Pending Estimat Glomerular Filtration Rate Pending Glucose Level Pending Calcium Level Pending Iron Level Pending Unsaturated Iron Binding Pending Carcinoembryonic Antigen Pending CA 125 Antigen Pending Hepatitis A IgM Antibody Pending Hepatitis B Surface Antigen Pending Hepatitis B Core IgM Antibody Pending Hepatitis C Antibody Pending HIV (1&2) Antibody Rapid Pending Current Medications Medications (Trade) Dose Ordered Sig/Leslie Route PRN Reason Start Time Stop Time Status Last Admin Dose Admin Acetaminophen (Tylenol) 650 mg Q4H PRN ORAL Mild Pain (Pain Scale 1-3) 01/29/20 09:45 02/28/20 09:44 Al Hydroxide/Mg Hydroxide (Mylanta) 30 ml EVERY 4 HOURS PRN ORAL upset stomach 01/29/20 09:45 02/28/20 09:44 02/01/20 11:15 Aspirin (ASA) 81 mg DAILY ORAL 01/30/20 09:00 03/15/20 08:59 02/05/20 09:12 Dexamethasone Sodium Phosphate (Decadron 4mg/ml vial) 6 mg DAILY IVP 02/03/20 09:00 02/08/20 08:59 02/05/20 09:13 Docusate Sodium (Colace) 100 mg TWICE A DAY ORAL 01/29/20 18:00 02/28/20 17:59 02/05/20 09:13 Enoxaparin Sodium (Lovenox) 40 mg DAILY SUBQ 01/30/20 09:00 04/29/20 08:59 02/05/20 09:14 Ergocalciferol (Drisdol) 50,000 intlu ONCE A WEEK ORAL 01/29/20 12:00 02/28/20 11:59 01/29/20 14:03 Ferrous Sulfate (Feosol) 325 mg BID ORAL 01/29/20 18:00 04/28/20 17:59 02/05/20 09:13 Furosemide (Lasix) 20 mg DAILY ORAL 02/04/20 09:00 03/05/20 08:59 02/05/20 09:13 Gabapentin (Neurontin) 100 mg THREE TIMES A DAY ORAL 01/29/20 13:00 02/28/20 12:59 02/05/20 09:12 Lisinopril (ZestriL) 20 mg DAILY ORAL 02/04/20 09:00 03/05/20 08:59 02/05/20 09:13 Metoprolol Succinate (Toprol XL) 50 mg DAILY ORAL 01/30/20 09:00 04/29/20 08:59 02/05/20 09:12 Pantoprazole (Protonix) 40 mg DAILY ORAL 01/30/20 09:00 02/29/20 08:59 02/05/20 09:12 Carla Elizabeth MD Feb 05, 2020 11:40
[2020-02-05 11:54] LABS: CALCIUM 8.8 MG/DL (8.5-10.1); CREATININE 1.3 MG/DL (0.55-1.30); POTASSIUM 3.8 MMOL/L (3.5-5.1)
[2020-02-05 12:00] VITALS: BP 126/63
[2020-02-05 12:01] LABS: % IRON SATURATION 39 % (15-50); IRON 105 ug/dL (50-175); TOTAL IRON BINDING CAPACITY 269 ug/dL (250-450)
[2020-02-05] MEDS: Vitamin D 50,000 units cap ORAL SCH (12:39)
[2020-02-05 16:00] VITALS: BP 110/69
--- NOTE | 2020-02-05 18:51 | NUR ---
NURSE HAND-OFF: Important Events on Shift: Patient Status: stable Diet: cardiac Pending Orders: n/a Pending Results/Labs:n/a Pending MD notification:n/a Latest Vital Signs: Temperature 97.5 , Pulse 64 , B/P 110 /69 , Respiratory Rate 20 , O2 SAT 97 , Nasal Cannula, O2 Flow Rate 1.0 . Vital Sign Comment: stable Latest Live Fall Score: 35 Fall Risk: Medium Risk Safety Measures: Call light Within Reach, Bed Alarm Zone 1, Side Rails Side Rails x2, Bed position Low and Locked. Fall Precautions: Yellow Socks Report given to MELYSSA Rodriguez.
[2020-02-05 20:00] VITALS: BP 113/65
--- NOTE | 2020-02-05 20:50 | NUR ---
NURSE NOTES: Patient in bed, awake, alert and verbally responsive. Able to make needs known. Respiration is even and unlabored. Currently on Room air. No complaint of pain or discomfort noted. Abdomen is soft and non distended. Skin is intact, warm and dry to touch. Patient is ambulatory. Patient is on isolation per protocol and per order. Observed. bed in low and locked position. Provided safe environment. call light is at bedside. Will continue plan of care.
--- NOTE | 2020-02-05 21:00 | NUR ---
NURSE NOTES: Patient complained that she is missing her bra, undershirt, shoes, pants. It was with her during transfer from [facility] to . During rounds she mentioned all the belongings mentioned are missing. It was also endorsed from previous shift. Charge nurse made aware.
[2020-02-06] VITALS: BP 116/55
--- NOTE | 2020-02-06 00:36 | Cardiology Progress Note ---
Subjective DATE OF SERVICE: Feb 05, 2020 Increasingly prerenal - labs noted. No CP; troponin levels have normalized. No SOB; on low flow O2. Monitor: sinus with non-sustained ectopy 2D Echo: EF 30% with mild-mod regurgitation. Objective Last 24 Hour Vital Signs Date Time Temp Pulse Resp B/P (MAP) Pulse Ox O2 Delivery O2 Flow Rate FiO2 02/05/20 21:00 Nasal Cannula 1.0 02/05/20 20:00 97.3 70 20 113/65 (81) 98 02/05/20 16:00 97.5 64 20 110/69 (83) 97 02/05/20 12:00 97.2 68 20 126/63 (84) 97 02/05/20 09:13 120/78 02/05/20 09:12 66 120/78 02/05/20 09:00 Nasal Cannula 1.0 02/05/20 08:00 97.2 66 20 120/78 (92) 98 02/05/20 04:00 97.0 69 18 118/74 (89) 96 ROS: unchanged from my evaluation of 01/29/20 HEENT: normal ENT inspection RHYTHM: NSR, PVCs, PACs LUNGS: rales bilaterally CARDIAC: normal rate, regular rhythm, normal S1 and S2, systolic murmur - 1/6 systolic murmur at apex ABDOMEN: normal bowel sounds, non tender EXTREMITIES: non-tender, trace edema Laboratory Tests Test 02/05/20 11:15 Sodium Level 135 MMOL/L (136-145) L Potassium Level 3.8 MMOL/L (3.5-5.1) Chloride Level 98 MMOL/L (98-107) Carbon Dioxide Level 32 MMOL/L (21-32) Anion Gap 5 mmol/L (5-15) Blood Urea Nitrogen 34 mg/dL (7-18) H Creatinine 1.3 MG/DL (0.55-1.30) Estimat Glomerular Filtration Rate 39.3 mL/min (>60) Glucose Level 140 MG/DL (74-106) H Calcium Level 8.8 MG/DL (8.5-10.1) Iron Level 105 ug/dL (50-175) Total Iron Binding Capacity 269 ug/dL (250-450) Percent Iron Saturation 39 % (15-50) Unsaturated Iron Binding 164 ug/dL (112-346) Carcinoembryonic Antigen Pending CA 125 Antigen Pending Hepatitis A IgM Antibody Pending Hepatitis B Surface Antigen Pending Hepatitis B Core IgM Antibody Pending Hepatitis C Antibody Pending HIV (1&2) Antibody Rapid Negative (NEGATIVE) Assessment/Plan Assessment/Plan Acute myocardial ischemia Possible NSTE OK Acute/chr systolic and diastolic CHF COVID 19 PNA Hypoxia Ischemic cardiomyopathy Acute renal failure resolved - but rising Bun/Cr now due to diuresis. Degenerative valve disease with mitral regurg. Anti-virals O2 - low flow as needed Hold diuresis for now ACEi therapy continued - will titrate as BP tolerates. Titrate beta concepcion Anticoagulation Steroids per pulmonary Anti-plt rx Estiven Xavier MD Feb 06, 2020 00:36
--- NOTE | 2020-02-06 00:43 | NUR ---
NURSE NOTES: Patient in bed, asleep, no s/s of distress noted. cAll light is at bedside.
[2020-02-06 04:00] VITALS: BP 133/76
[2020-02-06 06:48] LABS: BASOPHILS % (AUTO) 0.7 % (0.0-2.0); EOSINOPHILS % (AUTO) 0.6 % (0.0-3.0); HEMATOCRIT 48.8 % (37.0-47.0); HEMOGLOBIN 16.6 G/DL (12.0-16.0); LYMPHOCYTES % (AUTO) 36.2 % (20.0-45.0); MEAN CORPUSCULAR VOLUME 95 FL (80-99); MONOCYTES % (AUTO) 6.6 % (1.0-10.0); NEUTROPHILS % (AUTO) 55.9 % (45.0-75.0); PLATELET COUNT 140 K/UL (150-450); RED BLOOD COUNT 5.13 M/UL (4.20-5.40); WHITE BLOOD COUNT 4.8 K/UL (4.8-10.8)
[2020-02-06 06:50] LABS: CALCIUM 8.9 MG/DL (8.5-10.1); CREATININE 1.2 MG/DL (0.55-1.30); POTASSIUM 4.7 MMOL/L (3.5-5.1)
--- NOTE | 2020-02-06 07:06 | Hematology/Onc Progress Note ---
Assessment/Plan Assessment/Plan Assessment and Recs # Pancytopenia is likely related to covid19 --> reviewed Id recs, s/p remdisivir as well as steriods -> peripheral smear is reviewed --> Abx reviewed --> hep and hiv have been ordered --> imaging abd as needed --> transfuse as prn basis --> hold off bone marrow biopsy --> wbc 4 --> hgb 16 --> plt 140 # Elev ddimer is due to covid --> no e/o dvt of lower ext # Acute respiratory failure due to COVID-19 --> per pulm recs # Pneumonia due to COVID-19 virus --> imaging as needed pulm # CHF exacerbation --> diuresis as needed # Hypertension --> as per cards # Tachycardia --> per cards recs, noted Appreciate consultation and dw Rn Subjective Constitutional: Denies: no symptoms, chills, fever, malaise, weakness, other HEENT: Denies: no symptoms, eye pain, blurred vision, tearing, double vision, ear pain, ear discharge, nose pain, nose congestion, throat pain, throat swelling, mouth pain, mouth swelling, other Cardiovascular: Denies: no symptoms, chest pain, edema, irregular heart rate, lightheadedness, palpitations, syncope, other Gastrointestinal/Abdominal: Denies: no symptoms, abdomen distended, abdominal pain, black stools, tarry stools, blood in stool, constipated, diarrhea, difficulty swallowing, nausea, poor appetite, poor fluid intake, rectal bleeding, vomiting, other Genitourinary: Denies: no symptoms, burning, discharge, frequency, flank pain, hematuria, incontinence, pain, urgency, other Neurologic/Psychiatric: Denies: no symptoms, anxiety, depressed, emotional problems, headache, numbness, paresthesia, pre-existing deficit, seizure, tingling, tremors, weakness, other Endocrine: Denies: no symptoms, excessive sweating, flushing, intolerance to cold, intolerance to heat, increased hunger, increased thirst, increased urine, unexplained weight gain, unexplained weight loss, other Hematologic/Lymphatic: Denies: no symptoms, anemia, easy bleeding, easy bruising, adenopathy, other Allergies: Coded Allergies: PENICILLINS (Verified Allergy, Unknown, 05/26/18) POTASSIUM (Verified Allergy, Unknown, 01/29/20) Subjective 02/05 asleep overnight, no bleeding, meds oted, labs reviewed Objective Objective Current Medications Medications (Trade) Dose Ordered Sig/Leslie Route PRN Reason Start Time Stop Time Status Last Admin Dose Admin Acetaminophen (Tylenol) 650 mg Q4H PRN ORAL Mild Pain (Pain Scale 1-3) 01/29/20 09:45 02/28/20 09:44 Al Hydroxide/Mg Hydroxide (Mylanta) 30 ml EVERY 4 HOURS PRN ORAL upset stomach 01/29/20 09:45 02/28/20 09:44 02/01/20 11:15 Aspirin (ASA) 81 mg DAILY ORAL 01/30/20 09:00 03/15/20 08:59 02/05/20 09:12 Dexamethasone Sodium Phosphate (Decadron 4mg/ml vial) 6 mg DAILY IVP 02/03/20 09:00 02/08/20 08:59 02/05/20 09:13 Docusate Sodium (Colace) 100 mg TWICE A DAY ORAL 01/29/20 18:00 02/28/20 17:59 02/05/20 17:06 Enoxaparin Sodium (Lovenox) 40 mg DAILY SUBQ 01/30/20 09:00 04/29/20 08:59 02/05/20 09:14 Ergocalciferol (Drisdol) 50,000 intlu ONCE A WEEK ORAL 01/29/20 12:00 02/28/20 11:59 02/05/20 12:39 Ferrous Sulfate (Feosol) 325 mg BID ORAL 01/29/20 18:00 04/28/20 17:59 02/05/20 17:06 Gabapentin (Neurontin) 100 mg THREE TIMES A DAY ORAL 01/29/20 13:00 02/28/20 12:59 02/05/20 17:06 Lisinopril (ZestriL) 20 mg DAILY ORAL 02/04/20 09:00 03/05/20 08:59 02/05/20 09:13 Metoprolol Succinate (Toprol XL) 50 mg DAILY ORAL 01/30/20 09:00 04/29/20 08:59 02/05/20 09:12 Pantoprazole (Protonix) 40 mg DAILY ORAL 01/30/20 09:00 02/29/20 08:59 02/05/20 09:12 Last 24 Hour Vital Signs Date Time Temp Pulse Resp B/P (MAP) Pulse Ox O2 Delivery O2 Flow Rate FiO2 02/06/20 04:00 97.7 60 16 133/76 (95) 98 02/06/20 00:00 97.0 55 16 116/55 (75) 97 02/05/20 21:00 Nasal Cannula 1.0 02/05/20 20:00 97.3 70 20 113/65 (81) 98 02/05/20 16:00 97.5 64 20 110/69 (83) 97 02/05/20 12:00 97.2 68 20 126/63 (84) 97 02/05/20 09:13 120/78 02/05/20 09:12 66 120/78 02/05/20 09:00 Nasal Cannula 1.0 02/05/20 08:00 97.2 66 20 120/78 (92) 98 02/05/20 04:00 97.0 69 18 118/74 (89) 96 02/05/20 00:00 97.6 72 18 121/82 (95) 94 02/04/20 21:00 Nasal Cannula 1.0 02/04/20 20:00 97.3 69 18 123/75 (91) 96 02/04/20 16:00 96.7 61 18 102/60 (74) 95 02/04/20 16:00 62 02/04/20 12:00 96.4 67 18 116/73 (87) 100 02/04/20 12:00 63 02/04/20 10:08 97.5 55 18 127/58 (81) 98 02/04/20 09:00 Nasal Cannula 1.0 02/04/20 08:00 56 02/04/20 08:00 97.5 55 18 127/58 (81) 98 Intake and Output 02/05/20 02/06/20 19:00 07:00 Intake Total 600 ml 360 ml Output Total 200 ml Balance 600 ml 160 ml Intake Oral 600 ml Other 360 ml Output Urine Total 200 ml # Voids 2 Labs Test 02/04/20 05:30 02/05/20 11:15 02/06/20 06:00 White Blood Count 4.5 K/UL (4.8-10.8) 4.8 K/UL (4.8-10.8) Red Blood Count 5.08 M/UL (4.20-5.40) 5.13 M/UL (4.20-5.40) Hemoglobin 16.3 G/DL (12.0-16.0) 16.6 G/DL (12.0-16.0) Hematocrit 48.9 % (37.0-47.0) 48.8 % (37.0-47.0) Mean Corpuscular Volume 96 FL (80-99) 95 FL (80-99) Mean Corpuscular Hemoglobin 32.1 PG (27.0-31.0) 32.3 PG (27.0-31.0) Mean Corpuscular Hemoglobin Concent 33.3 G/DL (32.0-36.0) 34.0 G/DL (32.0-36.0) Red Cell Distribution Width 12.5 % (11.6-14.8) 13.0 % (11.6-14.8) Platelet Count 124 K/UL (150-450) 140 K/UL (150-450) Mean Platelet Volume 12.6 FL (6.5-10.1) 13.2 FL (6.5-10.1) Neutrophils (%) (Auto) 51.3 % (45.0-75.0) 55.9 % (45.0-75.0) Lymphocytes (%) (Auto) 39.2 % (20.0-45.0) 36.2 % (20.0-45.0) Monocytes (%) (Auto) 8.3 % (1.0-10.0) 6.6 % (1.0-10.0) Eosinophils (%) (Auto) 0.5 % (0.0-3.0) 0.6 % (0.0-3.0) Basophils (%) (Auto) 0.6 % (0.0-2.0) 0.7 % (0.0-2.0) Sodium Level 135 MMOL/L (136-145) 135 MMOL/L (136-145) Potassium Level 4.2 MMOL/L (3.5-5.1) 3.8 MMOL/L (3.5-5.1) Chloride Level 100 MMOL/L (98-107) 98 MMOL/L (98-107) Carbon Dioxide Level 32 MMOL/L (21-32) 32 MMOL/L (21-32) Anion Gap 3 mmol/L (5-15) 5 mmol/L (5-15) Blood Urea Nitrogen 32 mg/dL (7-18) 34 mg/dL (7-18) Creatinine 1.0 MG/DL (0.55-1.30) 1.3 MG/DL (0.55-1.30) Estimat Glomerular Filtration Rate 53.1 mL/min (>60) 39.3 mL/min (>60) Glucose Level 95 MG/DL (74-106) 140 MG/DL (74-106) Calcium Level 8.6 MG/DL (8.5-10.1) 8.8 MG/DL (8.5-10.1) Magnesium Level 1.9 MG/DL (1.8-2.4) Pro-B-Type Natriuretic Peptide 4787 pg/mL (0-125) Iron Level 105 ug/dL (50-175) Total Iron Binding Capacity 269 ug/dL (250-450) Percent Iron Saturation 39 % (15-50) Unsaturated Iron Binding 164 ug/dL (112-346) Carcinoembryonic Antigen 2.5 ng/mL (0.0-4.7) Hepatitis A IgM Antibody Negative (Negative) Hepatitis B Surface Antigen Negative (Negative) Hepatitis B Core IgM Antibody Negative (Negative) Hepatitis C Antibody <0.1 s/co ratio HIV (1&2) Antibody Rapid Negative (NEGATIVE) Height (Feet): 5 Height (Inches): 1.00 Weight (Pounds): 156 Objective Physical Exam Vitals with tachycardia Sp02 EP Interpretation: reviewed, normal General Appearance: alert, moderate distress ENT: hearing grossly normal, normal pharynx Neck: full range of motion, supple, no meningismus Respiratory: chest non-tender, respiratory distress Cardiovascular: regular rate, rhythm, no murmur Gastrointestinal: normal bowel sounds, non tender Musculoskeletal: back normal Psychiatric: anxious Anupam Lopes MD Feb 06, 2020 07:06
--- NOTE | 2020-02-06 07:16 | NUR ---
NURSE HAND-OFF: Important Events on Shift:Missing belongings Patient Status: Diet: Cardiac Pending Orders: Pending Results/Labs: Pending MD notification: Latest Vital Signs: Temperature 97.7 , Pulse 60 , B/P 133 /76 , Respiratory Rate 16 , O2 SAT 98 , Nasal Cannula, O2 Flow Rate 1.0 . Vital Sign Comment: Latest Live Fall Score: 35 Fall Risk: Medium Risk Safety Measures: Call light Within Reach, Bed Alarm Zone 1, Side Rails Side Rails x2, Bed position Low and Locked. Fall Precautions: Yellow Socks Report given to MELYSSA Freeman.
--- NOTE | 2020-02-06 07:34 | NUR ---
NURSE NOTES: Patient alert x4; on Nasal Cannula 2 Liters, no sing of shortness of breath, no sing of distress; no sing of chest pain; IV LFA flushes well; side rails up x2, breaks engaged, bed at lowest position; call light within reach; will keep monitoring.
[2020-02-06 08:00] VITALS: BP 124/69
[2020-02-06] MEDS: Metoprolol Succinate XL 50mg tab ORAL SCH (08:24)
[2020-02-06] MEDS: Docusate 100mg cap ORAL SCH ×2 (08:24→17:36)
[2020-02-06] MEDS: Aspirin Baby 81mg ORAL SCH (08:24)
[2020-02-06] MEDS: Lisinopril 10mg tab ORAL SCH (08:25)
[2020-02-06] MEDS: Enoxaparin 40mg Inj SUBQ SCH (08:28)
--- NOTE | 2020-02-06 09:41 | Pulmonology Progress Note ---
Subjective ROS Limited/Unobtainable: Yes Constitutional: Denies: fever, chills Gastrointestinal/Abdominal: Denies: nausea, vomiting, diarrhea Musculoskeletal: Denies: pain Allergies: Coded Allergies: PENICILLINS (Verified Allergy, Unknown, 05/26/18) POTASSIUM (Verified Allergy, Unknown, 01/29/20) Subjective comfortable no distress off antibiotics wbc recovered Objective Last 24 Hour Vital Signs Date Time Temp Pulse Resp B/P (MAP) Pulse Ox O2 Delivery O2 Flow Rate FiO2 02/06/20 08:25 124/69 02/06/20 08:24 67 124/69 02/06/20 08:00 97.0 67 16 124/69 (87) 97 02/06/20 04:00 97.7 60 16 133/76 (95) 98 02/06/20 00:00 97.0 55 16 116/55 (75) 97 02/05/20 21:00 Nasal Cannula 1.0 02/05/20 20:00 97.3 70 20 113/65 (81) 98 02/05/20 16:00 97.5 64 20 110/69 (83) 97 02/05/20 12:00 97.2 68 20 126/63 (84) 97 Intake and Output 02/05/20 02/06/20 19:00 07:00 Intake Total 600 ml 360 ml Output Total 200 ml Balance 600 ml 160 ml Intake Oral 600 ml Other 360 ml Output Urine Total 200 ml # Voids 2 Objective deferred due to COVID Laboratory Tests 02/05/20 11:15: Sodium Level 135L, Potassium Level 3.8, Chloride Level 98, Carbon Dioxide Level 32, Anion Gap 5, Blood Urea Nitrogen 34H, Creatinine 1.3, Estimat Glomerular Filtration Rate 39.3, Glucose Level 140H, Calcium Level 8.8, Iron Level 105, Total Iron Binding Capacity 269, Percent Iron Saturation 39, Unsaturated Iron Binding 164, Carcinoembryonic Antigen 2.5, CA 125 Antigen 10.2, Hepatitis A IgM Antibody Negative, Hepatitis B Surface Antigen Negative, Hepatitis B Core IgM A ntibody Negative, Hepatitis C Antibody <0.1, HIV (1&2) Antibody Rapid Negative 02/06/20 06:00: Sodium Level 136, Potassium Level 4.7, Chloride Level 98, Carbon Dioxide Level 36H, Anion Gap 2L, Blood Urea Nitrogen 36H, Creatinine 1.2, Estimat Glomerular Filtration Rate 43.0, Glucose Level 78, Calcium Level 8.9, White Blood Count 4.8, Red Blood Count 5.13, Hemoglobin 16.6H, Hematocrit 48.8H, Mean Corpuscular Volume 95, Mean Corpuscular Hemoglobin 32.3H, Mean Corpuscular Hemoglobin Concent 34.0, Red Cell Distribution Width 13.0, Platelet Count 140L, Mean Platelet Volume 13.2H, Neutrophils (%) (Auto) 55.9, Lymphocytes (%) (Auto) 36.2, Monocytes (%) (Auto) 6.6, Eosinophils (%) (Auto) 0.6, Basophils (%) (Auto) 0.7, Magnesium Level 2.1, Pro-B-Type Natriuretic Peptide 4523H Current Medications Medications (Trade) Dose Ordered Sig/Lelsie Route PRN Reason Start Time Stop Time Status Last Admin Dose Admin Acetaminophen (Tylenol) 650 mg Q4H PRN ORAL Mild Pain (Pain Scale 1-3) 01/29/20 09:45 02/28/20 09:44 Al Hydroxide/Mg Hydroxide (Mylanta) 30 ml EVERY 4 HOURS PRN ORAL upset stomach 01/29/20 09:45 02/28/20 09:44 02/01/20 11:15 Aspirin (ASA) 81 mg DAILY ORAL 01/30/20 09:00 03/15/20 08:59 02/06/20 08:24 Dexamethasone Sodium Phosphate (Decadron 4mg/ml vial) 6 mg DAILY IVP 02/03/20 09:00 02/08/20 08:59 02/06/20 08:26 Docusate Sodium (Colace) 100 mg TWICE A DAY ORAL 01/29/20 18:00 02/28/20 17:59 02/06/20 08:24 Enoxaparin Sodium (Lovenox) 40 mg DAILY SUBQ 01/30/20 09:00 04/29/20 08:59 02/06/20 08:28 Ergocalciferol (Drisdol) 50,000 intlu ONCE A WEEK ORAL 01/29/20 12:00 02/28/20 11:59 02/05/20 12:39 Ferrous Sulfate (Feosol) 325 mg BID ORAL 01/29/20 18:00 04/28/20 17:59 12/2/20 08:24 Gabapentin (Neurontin) 100 mg THREE TIMES A DAY ORAL 01/29/20 13:00 02/28/20 12:59 02/06/20 08:24 Lisinopril (ZestriL) 20 mg DAILY ORAL 02/04/20 09:00 03/05/20 08:59 02/06/20 08:25 Metoprolol Succinate (Toprol XL) 50 mg DAILY ORAL 01/30/20 09:00 04/29/20 08:59 02/06/20 08:24 Pantoprazole (Protonix) 40 mg DAILY ORAL 01/30/20 09:00 02/29/20 08:59 02/06/20 08:24 Assessment/Plan Assessment/Plan Congestive heart failure, hypertension, asthma, COVID positive, mild hypoxemia, mild azotemia, pneumonia. leukopenia PLAN isolation recheck PCR ID clearance diurese monitor imaging oxygen to off nontoxic placement needed as per d/w patient case management aware impression, plan, and exam edited and reviewed in detail care discussed with Parag De Guzman MD Feb 06, 2020 09:41
[2020-02-06 12:00] VITALS: BP 105/65
--- NOTE | 2020-02-06 12:04 | Infectious Diseases Prog Note ---
Assessment/Plan Assessment/Plan antibiotics : none A 1. COVID-19 pneumonia. on 1 liter of oxygen with 97 % O2 saturation. s/p remdesivir 2. Hypertension. 3. Asthma. 4. CHF P 1. continue Decadron day #9 2. Continue isolation. Subjective ROS Limited/Unobtainable: Yes Allergies: Coded Allergies: PENICILLINS (Verified Allergy, Unknown, 05/26/18) POTASSIUM (Verified Allergy, Unknown, 01/29/20) Objective Last 24 Hour Vital Signs Date Time Temp Pulse Resp B/P (MAP) Pulse Ox O2 Delivery O2 Flow Rate FiO2 02/06/20 09:00 Nasal Cannula 1.0 02/06/20 08:25 124/69 02/06/20 08:24 67 124/69 02/06/20 08:00 97.0 67 16 124/69 (87) 97 02/06/20 04:00 97.7 60 16 133/76 (95) 98 02/06/20 00:00 97.0 55 16 116/55 (75) 97 02/05/20 21:00 Nasal Cannula 1.0 02/05/20 20:00 97.3 70 20 113/65 (81) 98 02/05/20 16:00 97.5 64 20 110/69 (83) 97 Height (Feet): 5 Height (Inches): 1.00 Weight (Pounds): 156 Laboratory Tests Test 02/06/20 06:00 White Blood Count 4.8 K/UL (4.8-10.8) Red Blood Count 5.13 M/UL (4.20-5.40) Hemoglobin 16.6 G/DL (12.0-16.0) H Hematocrit 48.8 % (37.0-47.0) H Mean Corpuscular Volume 95 FL (80-99) Mean Corpuscular Hemoglobin 32.3 PG (27.0-31.0) H Mean Corpuscular Hemoglobin Concent 34.0 G/DL (32.0-36.0) Red Cell Distribution Width 13.0 % (11.6-14.8) Platelet Count 140 K/UL (150-450) L Mean Platelet Volume 13.2 FL (6.5-10.1) H Neutrophils (%) (Auto) 55.9 % (45.0-75.0) Lymphocytes (%) (Auto) 36.2 % (20.0-45.0) Monocytes (%) (Auto) 6.6 % (1.0-10.0) Eosinophils (%) (Auto) 0.6 % (0.0-3.0) Basophils (%) (Auto) 0.7 % (0.0-2.0) Sodium Level 136 MMOL/L (136-145) Potassium Level 4.7 MMOL/L (3.5-5.1) Chloride Level 98 MMOL/L (98-107) Carbon Dioxide Level 36 MMOL/L (21-32) H Anion Gap 2 mmol/L (5-15) L Blood Urea Nitrogen 36 mg/dL (7-18) H Creatinine 1.2 MG/DL (0.55-1.30) Estimat Glomerular Filtration Rate 43.0 mL/min (>60) Glucose Level 78 MG/DL (74-106) Calcium Level 8.9 MG/DL (8.5-10.1) Magnesium Level 2.1 MG/DL (1.8-2.4) Pro-B-Type Natriuretic Peptide 4523 pg/mL (0-125) H Current Medications Medications (Trade) Dose Ordered Sig/Leslie Route PRN Reason Start Time Stop Time Status Last Admin Dose Admin Acetaminophen (Tylenol) 650 mg Q4H PRN ORAL Mild Pain (Pain Scale 1-3) 01/29/20 09:45 02/28/20 09:44 Al Hydroxide/Mg Hydroxide (Mylanta) 30 ml EVERY 4 HOURS PRN ORAL upset stomach 01/29/20 09:45 02/28/20 09:44 02/01/20 11:15 Aspirin (ASA) 81 mg DAILY ORAL 01/30/20 09:00 03/15/20 08:59 02/06/20 08:24 Dexamethasone Sodium Phosphate (Decadron 4mg/ml vial) 6 mg DAILY IVP 02/03/20 09:00 02/08/20 08:59 02/06/20 08:26 Docusate Sodium (Colace) 100 mg TWICE A DAY ORAL 01/29/20 18:00 02/28/20 17:59 02/06/20 08:24 Enoxaparin Sodium (Lovenox) 40 mg DAILY SUBQ 01/30/20 09:00 04/29/20 08:59 02/06/20 08:28 Ergocalciferol (Drisdol) 50,000 intlu ONCE A WEEK ORAL 01/29/20 12:00 02/28/20 11:59 02/05/20 12:39 Ferrous Sulfate (Feosol) 325 mg BID ORAL 01/29/20 18:00 04/28/20 17:59 02/06/20 08:24 Gabapentin (Neurontin) 100 mg THREE TIMES A DAY ORAL 01/29/20 13:00 02/28/20 12:59 02/06/20 08:24 Lisinopril (ZestriL) 20 mg DAILY ORAL 02/04/20 09:00 03/05/20 08:59 02/06/20 08:25 Metoprolol Succinate (Toprol XL) 50 mg DAILY ORAL 01/30/20 09:00 04/29/20 08:59 02/06/20 08:24 Pantoprazole (Protonix) 40 mg DAILY ORAL 01/30/20 09:00 02/29/20 08:59 02/06/20 08:24 Carla Elizabeth MD Feb 06, 2020 12:04
--- NOTE | 2020-02-06 14:54 | NUR ---
CASE MANAGEMENT:REVIEW SI;COVID PNEUMONIA 97.7 67 16 133/76 96% 1L NC PLT 140 CO2 36 BUN 36 BNP 4523 IS;DECADRON IV QD #9/10 ASA PO QD LOVENOX SQ QD TOPROL XL PO QD PROTONIX PO QD ZESTRIL PO QD MED SURG STATUS DCP;PATIENT IS FROM HOME SNF PLACEMENT PER MD NOTE
[2020-02-06 16:00] VITALS: BP 119/65
--- NOTE | 2020-02-06 19:30 | NUR ---
HAND-OFF: Report given to MELYSSA Us.
--- NOTE | 2020-02-06 19:31 | NUR ---
NURSE NOTES: Received patient in no apparent distress. A&OX4. IV site patent and intact. Bed in lowest position. Call light within reach. Will continue to monitor.
[2020-02-06 20:00] VITALS: BP 112/64
[2020-02-07] VITALS: BP 113/66
--- NOTE | 2020-02-07 02:32 | Cardiology Progress Note ---
Subjective DATE OF SERVICE: Feb 06, 2020 Still slightly prerenal following diuresis. No CP; troponin levels have normalized. No SOB; on low flow O2. Monitor: sinus with non-sustained ectopy 2D Echo: EF 30% with mild-mod regurgitation. Objective Last 24 Hour Vital Signs Date Time Temp Pulse Resp B/P (MAP) Pulse Ox O2 Delivery O2 Flow Rate FiO2 02/07/20 00:00 97.9 54 16 113/66 (82) 97 02/06/20 21:00 Room Air 02/06/20 20:00 97.6 55 16 112/64 (80) 96 02/06/20 16:00 97.0 53 16 119/65 (83) 96 02/06/20 12:00 97.2 61 16 105/65 (78) 96 02/06/20 09:00 Nasal Cannula 1.0 02/06/20 08:25 124/69 02/06/20 08:24 67 124/69 02/06/20 08:00 97.0 67 16 124/69 (87) 97 02/06/20 04:00 97.7 60 16 133/76 (95) 98 ROS: unchanged from my evaluation of 01/29/20 HEENT: normal ENT inspection RHYTHM: NSR, PVCs, PACs LUNGS: rales bilaterally CARDIAC: normal rate, regular rhythm, normal S1 and S2, systolic murmur - 1/6 systolic murmur at apex ABDOMEN: normal bowel sounds, non tender EXTREMITIES: non-tender, trace edema Laboratory Tests Test 02/06/20 06:00 White Blood Count 4.8 K/UL (4.8-10.8) Red Blood Count 5.13 M/UL (4.20-5.40) Hemoglobin 16.6 G/DL (12.0-16.0) H Hematocrit 48.8 % (37.0-47.0) H Mean Corpuscular Volume 95 FL (80-99) Mean Corpuscular Hemoglobin 32.3 PG (27.0-31.0) H Mean Corpuscular Hemoglobin Concent 34.0 G/DL (32.0-36.0) Red Cell Distribution Width 13.0 % (11.6-14.8) Platelet Count 140 K/UL (150-450) L Mean Platelet Volume 13.2 FL (6.5-10.1) H Neutrophils (%) (Auto) 55.9 % (45.0-75.0) Lymphocytes (%) (Auto) 36.2 % (20.0-45.0) Monocytes (%) (Auto) 6.6 % (1.0-10.0) Eosinophils (%) (Auto) 0.6 % (0.0-3.0) Basophils (%) (Auto) 0.7 % (0.0-2.0) Sodium Level 136 MMOL/L (136-145) Potassium Level 4.7 MMOL/L (3.5-5.1) Chloride Level 98 MMOL/L (98-107) Carbon Dioxide Level 36 MMOL/L (21-32) H Anion Gap 2 mmol/L (5-15) L Blood Urea Nitrogen 36 mg/dL (7-18) H Creatinine 1.2 MG/DL (0.55-1.30) Estimat Glomerular Filtration Rate 43.0 mL/min (>60) Glucose Level 78 MG/DL (74-106) Calcium Level 8.9 MG/DL (8.5-10.1) Magnesium Level 2.1 MG/DL (1.8-2.4) Pro-B-Type Natriuretic Peptide 4523 pg/mL (0-125) H Assessment/Plan Assessment/Plan Acute myocardial ischemia 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 Degenerative valve disease with mitral regurg. Anti-virals O2 - low flow as needed Hold diuresis for now, but will need maintenance dose prison. Titrate ACEi and beta concepcion as tolerated by BP Anticoagulation per COVID 19 parameters Steroids per pulmonary Anti-plt rx Estiven Xavier MD Feb 07, 2020 02:32
[2020-02-07 04:00] VITALS: BP 140/86
--- NOTE | 2020-02-07 06:49 | Hematology/Onc Progress Note ---
Assessment/Plan Assessment/Plan Assessment and Recs # Pancytopenia is likely related to covid19 --> reviewed Id recs, s/p remdisivir as well as steriods -> peripheral smear is reviewed --> Abx reviewed --> hep and hiv have been ordered --> imaging abd as needed --> transfuse as prn basis --> hold off bone marrow biopsy --> wbc 4->5 --> hgb 16-_>16 --> plt 140 --> erythropoein ordered # Elev ddimer is due to covid --> no e/o dvt of lower ext # Acute respiratory failure due to COVID-19 --> per pulm recs # Pneumonia due to COVID-19 virus --> imaging as needed pulm # CHF exacerbation --> diuresis as needed # Hypertension --> as per cards # Tachycardia --> per cards recs, noted # Dvt ppx lovenox sq Appreciate consultation and manny Rn Subjective HEENT: Denies: no symptoms, eye pain, blurred vision, tearing, double vision, ear pain, ear discharge, nose pain, nose congestion, throat pain, throat swelling, mouth pain, mouth swelling, other Cardiovascular: Denies: no symptoms, chest pain, edema, irregular heart rate, lightheadedness, palpitations, syncope, other Respiratory: Denies: no symptoms, cough, shortness of breath, SOB with excerti on, SOB at rest, sputum, wheezing, other Gastrointestinal/Abdominal: Denies: no symptoms, abdomen distended, abdominal pain, black stools, tarry stools, blood in stool, constipated, diarrhea, difficulty swallowing, nausea, poor appetite, poor fluid intake, rectal bleeding, vomiting, other Genitourinary: Denies: no symptoms, burning, discharge, frequency, flank pain, hematuria, incontinence, pain, urgency, other Neurologic/Psychiatric: Denies: no symptoms, anxiety, depressed, emotional problems, headache, numbness, paresthesia, pre-existing deficit, seizure, tingling, tremors, weakness, other Endocrine: Denies: no symptoms, excessive sweating, flushing, intolerance to cold, intolerance to heat, increased hunger, increased thirst, increased urine, unexplained weight gain, unexplained weight loss, other Hematologic/Lymphatic: Denies: no symptoms, anemia, easy bleeding, easy bruising, adenopathy, other Allergies: Coded Allergies: PENICILLINS (Verified Allergy, Unknown, 05/26/18) POTASSIUM (Verified Allergy, Unknown, 01/29/20) Subjective 02/05 asleep overnight, no bleeding, meds oted, labs reviewed 02/06 no chest pain or bleeding, labs reviewed, meds noted, still requiring diuresis Objective Objective Current Medications Medications (Trade) Dose Ordered Sig/Leslie Route PRN Reason Start Time Stop Time Status Last Admin Dose Admin Acetaminophen (Tylenol) 650 mg Q4H PRN ORAL Mild Pain (Pain Scale 1-3) 01/29/20 09:45 02/28/20 09:44 Al Hydroxide/Mg Hydroxide (Mylanta) 30 ml EVERY 4 HOURS PRN ORAL upset stomach 01/29/20 09:45 02/28/20 09:44 02/01/20 11:15 Aspirin (ASA) 81 mg DAILY ORAL 01/30/20 09:00 03/15/20 08:59 02/06/20 08:24 Dexamethasone Sodium Phosphate (Decadron 4mg/ml vial) 6 mg DAILY IVP 02/03/20 09:00 02/08/20 08:59 02/06/20 08:26 Docusate Sodium (Colace) 100 mg TWICE A DAY ORAL 01/29/20 18:00 02/28/20 17:59 02/06/20 17:36 Enoxaparin Sodium (Lovenox) 40 mg DAILY SUBQ 01/30/20 09:00 04/29/20 08:59 02/06/20 08:28 Ergocalciferol (Drisdol) 50,000 intlu ONCE A WEEK ORAL 01/29/20 12:00 02/28/20 11:59 02/05/20 12:39 Ferrous Sulfate (Feosol) 325 mg BID ORAL 01/29/20 18:00 04/28/20 17:59 02/06/20 17:36 Gabapentin (Neurontin) 100 mg THREE TIMES A DAY ORAL 01/29/20 13:00 02/28/20 12:59 02/06/20 17:36 Lisinopril (PriniviL) 20 mg DAILY ORAL 02/07/20 09:00 03/05/21 08:59 Metoprolol Succinate (Toprol XL) 50 mg DAILY ORAL 01/30/20 09:00 04/29/20 08:59 02/06/20 08:24 Pantoprazole (Protonix) 40 mg DAILY ORAL 01/30/20 09:00 02/29/20 08:59 02/06/20 08:24 Last 24 Hour Vital Signs Date Time Temp Pulse Resp B/P (MAP) Pulse Ox O2 Delivery O2 Flow Rate FiO2 02/07/20 04:00 97.4 62 17 140/86 (104) 99 02/07/20 00:00 97.9 54 16 113/66 (82) 97 02/06/20 21:00 Room Air 02/06/20 20:00 97.6 55 16 112/64 (80) 96 02/06/20 16:00 97.0 53 16 119/65 (83) 96 02/06/20 12:00 97.2 61 16 105/65 (78) 96 02/06/20 09:00 Nasal Cannula 1.0 02/06/20 08:25 124/69 02/06/20 08:24 67 124/69 02/06/20 08:00 97.0 67 16 124/69 (87) 97 02/06/20 04:00 97.7 60 16 133/76 (95) 98 02/06/20 00:00 97.0 55 16 116/55 (75) 97 02/05/20 21:00 Nasal Cannula 1.0 02/05/20 20:00 97.3 70 20 113/65 (81) 98 02/05/20 16:00 97.5 64 20 110/69 (83) 97 02/05/20 12:00 97.2 68 20 126/63 (84) 97 02/05/20 09:13 120/78 02/05/20 09:12 66 120/78 02/05/20 09:00 Nasal Cannula 1.0 02/05/20 08:00 97.2 66 20 120/78 (92) 98 Intake and Output 02/06/20 02/07/20 19:00 07:00 Intake Total 700 ml 1000 ml Balance 700 ml 1000 ml Intake Oral 700 ml 1000 ml # Voids 4 4 # Bowel Movements 1 Labs Test 02/05/20 11:15 02/06/20 06:00 Sodium Level 135 MMOL/L (136-145) 136 MMOL/L (136-145) Potassium Level 3.8 MMOL/L (3.5-5.1) 4.7 MMOL/L (3.5-5.1) Chloride Level 98 MMOL/L (98-107) 98 MMOL/L (98-107) Carbon Dioxide Level 32 MMOL/L (21-32) 36 MMOL/L (21-32) Anion Gap 5 mmol/L (5-15) 2 mmol/L (5-15) Blood Urea Nitrogen 34 mg/dL (7-18) 36 mg/dL (7-18) Creatinine 1.3 MG/DL (0.55-1.30) 1.2 MG/DL (0.55-1.30) Estimat Glomerular Filtration Rate 39.3 mL/min (>60) 43.0 mL/min (>60) Glucose Level 140 MG/DL (74-106) 78 MG/DL (74-106) Calcium Level 8.8 MG/DL (8.5-10.1) 8.9 MG/DL (8.5-10.1) Iron Level 105 ug/dL (50-175) Total Iron Binding Capacity 269 ug/dL (250-450) Percent Iron Saturation 39 % (15-50) Unsaturated Iron Binding 164 ug/dL (112-346) Carcinoembryonic Antigen 2.5 ng/mL (0.0-4.7) CA 125 Antigen 10.2 U/mL (0.0-38.1) Hepatitis A IgM Antibody Negative (Negative) Hepatitis B Surface Antigen Negative (Negative) Hepatitis B Core IgM Antibody Negative (Negative) Hepatitis C Antibody <0.1 s/co ratio HIV (1&2) Antibody Rapid Negative (NEGATIVE) White Blood Count 4.8 K/UL (4.8-10.8) Red Blood Count 5.13 M/UL (4.20-5.40) Hemoglobin 16.6 G/DL (12.0-16.0) Hematocrit 48.8 % (37.0-47.0) Mean Corpuscular Volume 95 FL (80-99) Mean Corpuscular Hemoglobin 32.3 PG (27.0-31.0) Mean Corpuscular Hemoglobin Concent 34.0 G/DL (32.0-36.0) Red Cell Distribution Width 13.0 % (11.6-14.8) Platelet Count 140 K/UL (150-450) Mean Platelet Volume 13.2 FL (6.5-10.1) Neutrophils (%) (Auto) 55.9 % (45.0-75.0) Lymphocytes (%) (Auto) 36.2 % (20.0-45.0) Monocytes (%) (Auto) 6.6 % (1.0-10.0) Eosinophils (%) (Auto) 0.6 % (0.0-3.0) Basophils (%) (Auto) 0.7 % (0.0-2.0) Magnesium Level 2.1 MG/DL (1.8-2.4) Pro-B-Type Natriuretic Peptide 4523 pg/mL (0-125) Height (Feet): 5 Height (Inches): 1.00 Weight (Pounds): 156 Objective Physical Exam Vitals with tachycardia Sp02 EP Interpretation: reviewed, normal General Appearance: alert, moderate distress ENT: hearing grossly normal, normal pharynx Neck: full range of motion, supple, no meningismus Respiratory: chest non-tender, respiratory distress Cardiovascular: regular rate, rhythm, no murmur Gastrointestinal: normal bowel sounds, non tender Musculoskeletal: back normal Psychiatric: anxious Anupam Lopes MD Feb 07, 2020 06:49
[2020-02-07 06:54] LABS: BASOPHILS % (AUTO) 0.5 % (0.0-2.0); EOSINOPHILS % (AUTO) 0.5 % (0.0-3.0); HEMATOCRIT 42.3 % (37.0-47.0); HEMOGLOBIN 15.1 G/DL (12.0-16.0); MEAN CORPUSCULAR VOLUME 92 FL (80-99); MONOCYTES % (AUTO) 8.4 % (1.0-10.0); NEUTROPHILS % (AUTO) 58.6 % (45.0-75.0); PLATELET COUNT 135 K/UL (150-450); RED BLOOD COUNT 4.59 M/UL (4.20-5.40); WHITE BLOOD COUNT 4.9 K/UL (4.8-10.8)
--- NOTE | 2020-02-07 07:23 | NUR ---
NURSE HAND-OFF: Important Events on Shift: Patient Status: Diet: Cardiac Pending Orders: Pending Results/Labs: Pending MD notification: Latest Vital Signs: Temperature 97.4 , Pulse 62 , B/P 140 /86 , Respiratory Rate 17 , O2 SAT 99 , Room Air, O2 Flow Rate 1.0 . Vital Sign Comment: Latest Live Fall Score: 35 Fall Risk: Medium Risk Safety Measures: Call light Within Reach, Bed Alarm Zone 1, Side Rails Side Rails x2, Bed position Low and Locked. Fall Precautions: Yellow Socks Report given to Keon RAGSDALE.
--- NOTE | 2020-02-07 07:24 | NUR ---
NURSE NOTES: Received report from MELYSSA Zuleta. Patient seen in bed AAOX4, ambulatory, and able to make needs known. Breathing is even and unlabored. IV site patent and intact. In no acute distress noted at this time. bed is locked and placed in lowest position. Call light within reach. Will continue to monitor
[2020-02-07 07:34] LABS: CALCIUM 8.8 MG/DL (8.5-10.1); CREATININE 1.2 MG/DL (0.55-1.30); POTASSIUM 4.4 MMOL/L (3.5-5.1)
[2020-02-07 08:00] VITALS: BP_SYST 123; BP_SYST 154; BP_DIAS 62; BP_DIAS 76
[2020-02-07] MEDS: Docusate 100mg cap ORAL SCH ×2 (08:36→17:03)
[2020-02-07] MEDS: Aspirin Baby 81mg ORAL SCH (08:37)
[2020-02-07] MEDS: Lisinopril 20mg tab ORAL SCH (08:37)
[2020-02-07] MEDS: Metoprolol Succinate XL 50mg tab ORAL SCH (08:37)
[2020-02-07] MEDS: Enoxaparin 40mg Inj SUBQ SCH (08:38)
--- NOTE | 2020-02-07 10:31 | NUR ---
NURSE NOTES: Patient made Rn aware that patients belongings were missing. Patient claims her shoes, panties, pants are missing. RN made charge nurse aware
[2020-02-07 12:00] VITALS: BP 114/66
--- NOTE | 2020-02-07 12:12 | Pulmonology Progress Note ---
Subjective ROS Limited/Unobtainable: Yes Constitutional: Denies: fever, chills Gastrointestinal/Abdominal: Denies: nausea, vomiting, diarrhea Musculoskeletal: Denies: pain Allergies: Coded Allergies: PENICILLINS (Verified Allergy, Unknown, 05/26/18) POTASSIUM (Verified Allergy, Unknown, 01/29/20) Subjective comfortable no distress off antibiotics Objective Last 24 Hour Vital Signs Date Time Temp Pulse Resp B/P (MAP) Pulse Ox O2 Delivery O2 Flow Rate FiO2 02/07/20 09:00 Room Air 02/07/20 08:37 123/73 02/07/20 08:37 81 123/73 02/07/20 04:00 97.4 62 17 140/86 (104) 99 02/07/20 00:00 97.9 54 16 113/66 (82) 97 02/06/20 21:00 Room Air 02/06/20 20:00 97.6 55 16 112/64 (80) 96 02/06/20 16:00 97.0 53 16 119/65 (83) 96 Intake and Output 02/06/20 02/07/20 19:00 07:00 Intake Total 700 ml 1000 ml Balance 700 ml 1000 ml Intake Oral 700 ml 1000 ml # Voids 4 4 # Bowel Movements 1 Objective deferred due to COVID Laboratory Tests 02/07/20 05:20: White Blood Count 4.9, Red Blood Count 4.59, Hemoglobin 15.1, Hematocrit 42.3, Mean Corpuscular Volume 92, Mean Corpuscular Hemoglobin 33.0H, Mean Corpuscular Hemoglobin Concent 35.8, Red Cell Distribution Width 14.0, Platelet Count 135L, Mean Platelet Volume 11.2H, Neutrophils (%) (Auto) 58.6, Lymphocytes (%) (Auto) 32.0, Monocytes (%) (Auto) 8.4, Eosinophils (%) (Auto) 0.5, Basophils (%) (Auto) 0.5 02/07/20 06:05: Sodium Level 138, Potassium Level 4.4, Chloride Level 102, Carbon Dioxide Level 30, Anion Gap 6, Blood Urea Nitrogen 36H, Creatinine 1.2, Estimat Glomerular Filtration Rate 43.0, Glucose Level 65L, Calcium Level 8.8, Erythropoietin [Pending] Current Medications Medications (Trade) Dose Ordered Sig/Leslie Route PRN Reason Start Time Stop Time Status Last Admin Dose Admin Acetaminophen (Tylenol) 650 mg Q4H PRN ORAL Mild Pain (Pain Scale 1-3) 01/29/20 09:45 02/28/20 09:44 Al Hydroxide/Mg Hydroxide (Mylanta) 30 ml EVERY 4 HOURS PRN ORAL upset stomach 01/29/20 09:45 02/28/20 09:44 02/01/20 11:15 Aspirin (ASA) 81 mg DAILY ORAL 01/30/20 09:00 03/15/20 08:59 02/07/20 08:37 Dexamethasone Sodium Phosphate (Decadron 4mg/ml vial) 6 mg DAILY IVP 02/03/20 09:00 02/08/20 08:59 02/07/20 08:37 Docusate Sodium (Colace) 100 mg TWICE A DAY ORAL 01/29/20 18:00 02/28/20 17:59 02/07/20 08:36 Enoxaparin Sodium (Lovenox) 40 mg DAILY SUBQ 01/30/20 09:00 04/29/20 08:59 02/07/20 08:38 Ergocalciferol (Drisdol) 50,000 intlu ONCE A WEEK ORAL 01/29/20 12:00 02/28/20 11:59 02/05/20 12:39 Ferrous Sulfate (Feosol) 325 mg BID ORAL 01/29/20 18:00 04/28/20 17:59 02/07/20 08:37 Gabapentin (Neurontin) 100 mg THREE TIMES A DAY ORAL 01/29/20 13:00 02/28/20 12:59 02/07/20 08:37 Lisinopril (PriniviL) 20 mg DAILY ORAL 02/07/20 09:00 03/05/21 08:59 02/07/20 08:37 Metoprolol Succinate (Toprol XL) 50 mg DAILY ORAL 01/30/20 09:00 04/29/20 08:59 02/07/20 08:37 Pantoprazole (Protonix) 40 mg DAILY ORAL 01/30/20 09:00 02/29/20 08:59 02/07/20 08:37 Assessment/Plan Assessment/Plan Congestive heart failure, hypertension, asthma, COVID positive, mild hypoxemia, mild azotemia, pneumonia. leukopenia PLAN isolation recheck PCR ID clearance diurese monitor imaging oxygen to off nontoxic placement needed as per d/w patient case management aware for dc impression, plan, and exam edited and reviewed in detail care discussed with Parag De Guzman MD Feb 07, 2020 12:12
--- NOTE | 2020-02-07 12:29 | Infectious Diseases Prog Note ---
Assessment/Plan Assessment/Plan A 1. COVID-19 pneumonia. 2. Hypertension. 3. Asthma. 4. CHF 5. Leukopenia resolved P 1. continue Decadron day #10 2. Finished Remdesivir course 3. Continue isolation. Subjective ROS Limited/Unobtainable: No Constitutional: Reports: no symptoms Respiratory: Reports: no symptoms Gastrointestinal/Abdominal: Reports: no symptoms Genitourinary: Reports: no symptoms Allergies: Coded Allergies: PENICILLINS (Verified Allergy, Unknown, 05/26/18) POTASSIUM (Verified Allergy, Unknown, 01/29/20) Objective Last 24 Hour Vital Signs Date Time Temp Pulse Resp B/P (MAP) Pulse Ox O2 Delivery O2 Flow Rate FiO2 02/07/20 12:00 97.9 77 19 114/66 (82) 99 02/07/20 09:00 Room Air 02/07/20 08:37 123/73 02/07/20 08:37 81 123/73 02/07/20 08:00 98.4 66 17 123/62 (82) 99 02/07/20 04:00 97.4 62 17 140/86 (104) 99 02/07/20 00:00 97.9 54 16 113/66 (82) 97 02/06/20 21:00 Room Air 02/06/20 20:00 97.6 55 16 112/64 (80) 96 02/06/20 16:00 97.0 53 16 119/65 (83) 96 Height (Feet): 5 Height (Inches): 1.00 Weight (Pounds): 156 General Appearance: no acute distress HEENT: mucous membranes moist Respiratory/Chest: lungs clear Cardiovascular: normal rate Abdomen: soft, non tender Extremities: no edema Neurologic/Psychiatric: alert, responsive Laboratory Tests Test 02/07/20 05:20 02/07/20 06:05 White Blood Count 4.9 K/UL (4.8-10.8) Red Blood Count 4.59 M/UL (4.20-5.40) Hemoglobin 15.1 G/DL (12.0-16.0) Hematocrit 42.3 % (37.0-47.0) Mean Corpuscular Volume 92 FL (80-99) Mean Corpuscular Hemoglobin 33.0 PG (27.0-31.0) H Mean Corpuscular Hemoglobin Concent 35.8 G/DL (32.0-36.0) Red Cell Distribution Width 14.0 % (11.6-14.8) Platelet Count 135 K/UL (150-450) L Mean Platelet Volume 11.2 FL (6.5-10.1) H Neutrophils (%) (Auto) 58.6 % (45.0-75.0) Lymphocytes (%) (Auto) 32.0 % (20.0-45.0) Monocytes (%) (Auto) 8.4 % (1.0-10.0) Eosinophils (%) (Auto) 0.5 % (0.0-3.0) Basophils (%) (Auto) 0.5 % (0.0-2.0) Sodium Level 138 MMOL/L (136-145) Potassium Level 4.4 MMOL/L (3.5-5.1) Chloride Level 102 MMOL/L (98-107) Carbon Dioxide Level 30 MMOL/L (21-32) Anion Gap 6 mmol/L (5-15) Blood Urea Nitrogen 36 mg/dL (7-18) H Creatinine 1.2 MG/DL (0.55-1.30) Estimat Glomerular Filtration Rate 43.0 mL/min (>60) Glucose Level 65 MG/DL (74-106) L Calcium Level 8.8 MG/DL (8.5-10.1) Erythropoietin Pending Current Medications Medications (Trade) Dose Ordered Sig/Leslie Route PRN Reason Start Time Stop Time Status Last Admin Dose Admin Acetaminophen (Tylenol) 650 mg Q4H PRN ORAL Mild Pain (Pain Scale 1-3) 01/29/20 09:45 02/28/20 09:44 Al Hydroxide/Mg Hydroxide (Mylanta) 30 ml EVERY 4 HOURS PRN ORAL upset stomach 01/29/20 09:45 02/28/20 09:44 02/01/20 11:15 Aspirin (ASA) 81 mg DAILY ORAL 01/30/20 09:00 03/15/20 08:59 02/07/20 08:37 Dexamethasone Sodium Phosphate (Decadron 4mg/ml vial) 6 mg DAILY IVP 02/03/20 09:00 02/08/20 08:59 02/07/20 08:37 Docusate Sodium (Colace) 100 mg TWICE A DAY ORAL 01/29/20 18:00 02/28/20 17:59 02/07/20 08:36 Enoxaparin Sodium (Lovenox) 40 mg DAILY SUBQ 01/30/20 09:00 04/29/20 08:59 02/07/20 08:38 Ergocalciferol (Drisdol) 50,000 intlu ONCE A WEEK ORAL 01/29/20 12:00 02/28/20 11:59 02/05/20 12:39 Ferrous Sulfate (Feosol) 325 mg BID ORAL 01/29/20 18:00 04/28/20 17:59 02/07/20 08:37 Gabapentin (Neurontin) 100 mg THREE TIMES A DAY ORAL 01/29/20 13:00 02/28/20 12:59 02/07/20 12:21 Lisinopril (PriniviL) 20 mg DAILY ORAL 02/07/20 09:00 03/05/21 08:59 02/07/20 08:37 Metoprolol Succinate (Toprol XL) 50 mg DAILY ORAL 01/30/20 09:00 04/29/20 08:59 02/07/20 08:37 Pantoprazole (Protonix) 40 mg DAILY ORAL 01/30/20 09:00 02/29/20 08:59 02/07/20 08:37 Rupert Felix MD Feb 07, 2020 12:29
--- NOTE | 2020-02-07 14:05 | NUR ---
IT GENERALIST NOTE SW met w/ pt to clarify her living situation. Pt is covid positive. Pt resides w/ her granddaughter and she does have her own room to quarantine. Pt receives SSI $930/mo. Pt inquired the senior apartment application process. SW explained that pt will need to submit individual application to the senior apartment buildings and that she will be placed on the waitlist. SW encouraged pt to inquire the Housing Authority for housing vouchers. PT verbalized understanding and declined to receive the resource.
[2020-02-07 16:00] VITALS: BP 117/76
--- NOTE | 2020-02-07 19:15 | NUR ---
NURSE HAND-OFF: Important Events on Shift:social service coordinator on the case, belongings still missing Patient Status: stable Diet: cardiac Pending Orders: n/a Pending Results/Labs:n/a Pending MD notification:n/a Latest Vital Signs: Temperature 97.6 , Pulse 79 , B/P 117 /76 , Respiratory Rate 18 , O2 SAT 99 , Room Air, O2 Flow Rate 1.0 . Vital Sign Comment: stable Latest Live Fall Score: 35 Fall Risk: Medium Risk Safety Measures: Call light Within Reach, Bed Alarm Zone 1, Side Rails Side Rails x2, Bed position Low and Locked. Fall Precautions: Yellow Socks Report given to MELYSSA Flores.
--- NOTE | 2020-02-07 19:40 | NUR ---
NURSE NOTES: Received report from MELYSSA Herbert. Received pt laying in bed AOX4, on room air, breathing is even and unlabored. Denies any pain at this time. Able to make needs known without any problems. IV site LFA patent and intact. Bed is locked and in lowest position. Call light within reach. Side rails up x 2. Will continue to monitor.
[2020-02-07 20:00] VITALS: BP 97/55
--- NOTE | 2020-02-07 23:57 | Cardiology Progress Note ---
Subjective DATE OF SERVICE: Feb 07, 2020 Still slightly prerenal following diuresis. No CP; troponin levels have normalized. No SOB; on low flow O2. Monitor: sinus with non-sustained ectopy 2D Echo: EF 30% with mild-mod regurgitation. Objective Last 24 Hour Vital Signs Date Time Temp Pulse Resp B/P (MAP) Pulse Ox O2 Delivery O2 Flow Rate FiO2 02/07/20 21:00 Room Air 02/07/20 20:00 98.6 57 18 97/55 (69) 98 02/07/20 16:00 97.6 79 18 117/76 (90) 99 02/07/20 12:00 97.9 77 19 114/66 (82) 99 02/07/20 09:00 Room Air 02/07/20 08:37 123/73 02/07/20 08:37 81 123/73 02/07/20 08:00 98.4 66 17 123/62 (82) 99 02/07/20 04:00 97.4 62 17 140/86 (104) 99 02/07/20 00:00 97.9 54 16 113/66 (82) 97 ROS: unchanged from my evaluation of 01/29/20 HEENT: normal ENT inspection RHYTHM: NSR, PVCs, PACs LUNGS: rales bilaterally CARDIAC: normal rate, regular rhythm, normal S1 and S2, systolic murmur - 1/6 systolic murmur at apex ABDOMEN: normal bowel sounds, non tender EXTREMITIES: non-tender, trace edema Laboratory Tests Test 02/07/20 05:20 02/07/20 06:05 White Blood Count 4.9 K/UL (4.8-10.8) Red Blood Count 4.59 M/UL (4.20-5.40) Hemoglobin 15.1 G/DL (12.0-16.0) Hematocrit 42.3 % (37.0-47.0) Mean Corpuscular Volume 92 FL (80-99) Mean Corpuscular Hemoglobin 33.0 PG (27.0-31.0) H Mean Corpuscular Hemoglobin Concent 35.8 G/DL (32.0-36.0) Red Cell Distribution Width 14.0 % (11.6-14.8) Platelet Count 135 K/UL (150-450) L Mean Platelet Volume 11.2 FL (6.5-10.1) H Neutrophils (%) (Auto) 58.6 % (45.0-75.0) Lymphocytes (%) (Auto) 32.0 % (20.0-45.0) Monocytes (%) (Auto) 8.4 % (1.0-10.0) Eosinophils (%) (Auto) 0.5 % (0.0-3.0) Basophils (%) (Auto) 0.5 % (0.0-2.0) Sodium Level 138 MMOL/L (136-145) Potassium Level 4.4 MMOL/L (3.5-5.1) Chloride Level 102 MMOL/L (98-107) Carbon Dioxide Level 30 MMOL/L (21-32) Anion Gap 6 mmol/L (5-15) Blood Urea Nitrogen 36 mg/dL (7-18) H Creatinine 1.2 MG/DL (0.55-1.30) Estimat Glomerular Filtration Rate 43.0 mL/min (>60) Glucose Level 65 MG/DL (74-106) L Calcium Level 8.8 MG/DL (8.5-10.1) Erythropoietin Pending Assessment/Plan Assessment/Plan Acute myocardial ischemia Possible NSTE NV Acute/chr systolic and diastolic CHF COVID 19 PNA Hypoxia Ischemic cardiomyopathy Acute renal failure resolved - but rising Bun/Cr now due to diuresis. Degenerative valve disease with mitral regurg. Anti-virals O2 - low flow as needed Hold diuresis for now, but will need maintenance dose snf. Titrate ACEi and beta concepcion as tolerated by BP Anticoagulation per COVID 19 parameters Steroids per pulmonary Anti-plt rx Estiven Xavier MD Feb 07, 2020 23:57
[2020-02-08] VITALS: BP 121/75
[2020-02-08 04:00] VITALS: BP 129/70
[2020-02-08 06:37] LABS: BASOPHILS % (AUTO) 4.5 % (0.0-2.0); HEMATOCRIT 42.9 % (37.0-47.0); LYMPHOCYTES % (AUTO) 22.2 % (20.0-45.0); MEAN CORPUSCULAR VOLUME 96 FL (80-99); MONOCYTES % (AUTO) 10.9 % (1.0-10.0); NEUTROPHILS % (AUTO) 61.5 % (45.0-75.0); PLATELET COUNT 130 K/UL (150-450); RED BLOOD COUNT 4.46 M/UL (4.20-5.40); RED CELL DISTRIBUTION WIDTH 13.2 % (11.6-14.8); WHITE BLOOD COUNT 5.2 K/UL (4.8-10.8)
--- NOTE | 2020-02-08 06:59 | NUR ---
NURSE HAND-OFF: Important Events on Shift: None Patient Status: Stable Diet: Cardiac Pending Orders: None Pending Results/Labs: CBC Pending MD notification: N/A Latest Vital Signs: Temperature 98.1 , Pulse 60 , B/P 129 /70 , Respiratory Rate 18 , O2 SAT 98 , Room Air, O2 Flow Rate 1.0 . Vital Sign Comment: Stable Latest Live Fall Score: 35 Fall Risk: Medium Risk Safety Measures: Call light Within Reach, Bed Alarm Zone 1, Side Rails Side Rails x2, Bed position Low and Locked. Fall Precautions: Yellow Socks Report given to: MELYSSA Ariza
--- NOTE | 2020-02-08 06:59 | NUR ---
HAND-OFF: Report given to: MELYSSA Ariza
--- NOTE | 2020-02-08 07:25 | NUR ---
NURSE NOTES: Received report from MELYSSA White. Patient seen in bed AAOX4, ambulatory, and able to make needs known. Breathing is even and unlabored. IV site patent and intact. In no acute distress noted at this time. bed is locked and placed in lowest position. Dietary department made RN aware during round that patient had a low Blood sugar from previous BMP draw asked Rn to get orders from doctor for a q8 blood sugar monitoring. Will contact Primary for orders. Call light within reach. Will continue to monitor
[2020-02-08 08:00] VITALS: BP 131/53
[2020-02-08] MEDS: Enoxaparin 40mg Inj SUBQ SCH (08:49)
[2020-02-08] MEDS: Docusate 100mg cap ORAL SCH ×2 (08:50→17:03)
[2020-02-08] MEDS: Aspirin Baby 81mg ORAL SCH (08:50)
[2020-02-08] MEDS: Metoprolol Succinate XL 50mg tab ORAL SCH (08:51)
[2020-02-08] MEDS: Lisinopril 20mg tab ORAL SCH (08:51)
--- NOTE | 2020-02-08 09:23 | Hematology/Onc Progress Note ---
Assessment/Plan Assessment/Plan Assessment and Recs # Pancytopenia is likely related to covid19 --> reviewed Id recs, s/p remdisivir as well as steriods -> peripheral smear is reviewed --> Abx reviewed --> hep and hiv have been ordered --> imaging abd as needed --> transfuse as prn basis --> hold off bone marrow biopsy --> wbc 4->5 --> hgb 16-->16-->15 --> plt 140-->130 --> erythropoein ordered # Elev ddimer is due to covid --> no e/o dvt of lower ext # Acute respiratory failure due to COVID-19 --> per pulm recs # Pneumonia due to COVID-19 virus --> imaging as needed pulm # CHF exacerbation --> diuresis as needed # Hypertension --> as per cards # Tachycardia --> per cards recs, noted # Dvt ppx lovenox sq Appreciate consultation and dw Rn Subjective HEENT: Denies: no symptoms, eye pain, blurred vision, tearing, double vision, ear pain, ear discharge, nose pain, nose congestion, throat pain, throat swelling, mouth pain, mouth swelling, other Cardiovascular: Denies: no symptoms, chest pain, edema, irregular heart rate, lightheadedness, palpitations, syncope, other Respiratory: Denies: no symptoms, cough, shortness of breath, SOB with excertion, SOB at rest, sputum, wheezing, other Gastrointestinal/Abdominal: Denies: no symptoms, abdomen distended, abdominal pain, black stools, tarry stools, blood in stool, constipated, diarrhea, difficulty swallowing, nausea, poor appetite, poor fluid intake, rectal bleeding, vomiting, other Genitourinary: Denies: no symptoms, burning, discharge, frequency, flank pain, hematuria, incontinence, pain, urgency, other Neurologic/Psychiatric: Denies: no symptoms, anxiety, depressed, emotional problems, headache, numbness, paresthesia, pre-existing deficit, seizure, tingling, tremors, weakness, other Hematologic/Lymphatic: Denies: no symptoms, anemia, easy bleeding, easy bruising, adenopathy, other Allergies: Coded Allergies: PENICILLINS (Verified Allergy, Unknown, 05/26/18) POTASSIUM (Verified Allergy, Unknown, 01/29/20) Subjective 02/05 asleep overnight, no bleeding, meds oted, labs reviewed 02/06 no chest pain or bleeding, labs reviewed, meds noted, still requiring diuresis 02/07 no bleeding or chills, or night sweats, no major changes, no fc Objective Objective Current Medications Medications (Trade) Dose Ordered Sig/Leslie Route PRN Reason Start Time Stop Time Status Last Admin Dose Admin Acetaminophen (Tylenol) 650 mg Q4H PRN ORAL Mild Pain (Pain Scale 1-3) 01/29/20 09:45 02/28/20 09:44 Al Hydroxide/Mg Hydroxide (Mylanta) 30 ml EVERY 4 HOURS PRN ORAL upset stomach 01/29/20 09:45 02/28/20 09:44 02/01/20 11:15 Aspirin (ASA) 81 mg DAILY ORAL 01/30/20 09:00 03/15/20 08:59 02/08/20 08:50 Docusate Sodium (Colace) 100 mg TWICE A DAY ORAL 01/29/20 18:00 02/28/20 17:59 02/08/20 08:50 Enoxaparin Sodium (Lovenox) 40 mg DAILY SUBQ 01/30/20 09:00 04/29/20 08:59 02/08/20 08:49 Ergocalciferol (Drisdol) 50,000 intlu ONCE A WEEK ORAL 01/29/20 12:00 02/28/20 11:59 02/05/20 12:39 Ferrous Sulfate (Feosol) 325 mg BID ORAL 01/29/20 18:00 04/28/20 17:59 02/08/20 08:50 Gabapentin (Neurontin) 100 mg THREE TIMES A DAY ORAL 01/29/20 13:00 02/28/20 12:59 02/08/20 08:51 Lisinopril (PriniviL) 20 mg DAILY ORAL 02/07/20 09:00 03/05/21 08:59 02/08/20 08:51 Metoprolol Succinate (Toprol XL) 50 mg DAILY ORAL 01/30/20 09:00 04/29/20 08:59 02/08/20 08:51 Pantoprazole (Protonix) 40 mg DAILY ORAL 01/30/20 09:00 02/29/20 08:59 02/08/20 08:50 Last 24 Hour Vital Signs Date Time Temp Pulse Resp B/P (MAP) Pulse Ox O2 Delivery O2 Flow Rate FiO2 02/08/20 08:51 131/53 02/08/20 08:51 75 131/53 02/08/20 08:00 96.8 75 20 131/53 (79) 98 02/08/20 04:00 98.1 60 18 129/70 (89) 98 02/08/20 00:00 98.4 68 18 121/75 (90) 98 02/07/20 21:00 Room Air 02/07/20 20:00 98.6 57 18 97/55 (69) 98 02/07/20 16:00 97.6 79 18 117/76 (90) 99 02/07/20 12:00 97.9 77 19 114/66 (82) 99 02/07/20 09:00 Room Air 02/07/20 08:37 123/73 02/07/20 08:37 81 123/73 02/07/20 08:00 98.4 66 17 123/62 (82) 99 02/07/20 04:00 97.4 62 17 140/86 (104) 99 02/07/20 00:00 97.9 54 16 113/66 (82) 97 02/06/20 21:00 Room Air 02/06/20 20:00 97.6 55 16 112/64 (80) 96 02/06/20 16:00 97.0 53 16 119/65 (83) 96 02/06/20 12:00 97.2 61 16 105/65 (78) 96 Intake and Output 02/07/20 02/08/20 19:00 07:00 Intake Total 800 ml 240 ml Balance 800 ml 240 ml Intake Oral 600 ml 240 ml Other 200 ml # Voids 3 # Bowel Movements 1 Labs Test 02/05/20 11:15 02/06/20 06:00 02/07/20 05:20 02/07/20 06:05 Sodium Level 135 MMOL/L (136-145) 136 MMOL/L (136-145) 138 MMOL/L (136-145) Potassium Level 3.8 MMOL/L (3.5-5.1) 4.7 MMOL/L (3.5-5.1) 4.4 MMOL/L (3.5-5.1) Chloride Level 98 MMOL/L (98-107) 98 MMOL/L (98-107) 102 MMOL/L (98-107) Carbon Dioxide Level 32 MMOL/L (21-32) 36 MMOL/L (21-32) 30 MMOL/L (21-32) Anion Gap 5 mmol/L (5-15) 2 mmol/L (5-15) 6 mmol/L (5-15) Blood Urea Nitrogen 34 mg/dL (7-18) 36 mg/dL (7-18) 36 mg/dL (7-18) Creatinine 1.3 MG/DL (0.55-1.30) 1.2 MG/DL (0.55-1.30) 1.2 MG/DL (0.55-1.30) Estimat Glomerular Filtration Rate 39.3 mL/min (>60) 43.0 mL/min (>60) 43.0 mL/min (>60) Glucose Level 140 MG/DL (74-106) 78 MG/DL (74-106) 65 MG/DL (74-106) Calcium Level 8.8 MG/DL (8.5-10.1) 8.9 MG/DL (8.5-10.1) 8.8 MG/DL (8.5-10.1) Iron Level 105 ug/dL (50-175) Total Iron Binding Capacity 269 ug/dL (250-450) Percent Iron Saturation 39 % (15-50) Unsaturated Iron Binding 164 ug/dL (112-346) Carcinoembryonic Antigen 2.5 ng/mL (0.0-4.7) CA 125 Antigen 10.2 U/mL (0.0-38.1) Hepatitis A IgM Antibody Negative (Negative) Hepatitis B Surface Antigen Negative (Negative) Hepatitis B Core IgM Antibody Negative (Negative) Hepatitis C Antibody <0.1 s/co ratio HIV (1&2) Antibody Rapid Negative (NEGATIVE) White Blood Count 4.8 K/UL (4.8-10.8) 4.9 K/UL (4.8-10.8) Red Blood Count 5.13 M/UL (4.20-5.40) 4.59 M/UL (4.20-5.40) Hemoglobin 16.6 G/DL (12.0-16.0) 15.1 G/DL (12.0-16.0) Hematocrit 48.8 % (37.0-47.0) 42.3 % (37.0-47.0) Mean Corpuscular Volume 95 FL (80-99) 92 FL (80-99) Mean Corpuscular Hemoglobin 32.3 PG (27.0-31.0) 33.0 PG (27.0-31.0) Mean Corpuscular Hemoglobin Concent 34.0 G/DL (32.0-36.0) 35.8 G/DL (32.0-36.0) Red Cell Distribution Width 13.0 % (11.6-14.8) 14.0 % (11.6-14.8) Platelet Count 140 K/UL (150-450) 135 K/UL (150-450) Mean Platelet Volume 13.2 FL (6.5-10.1) 11.2 FL (6.5-10.1) Neutrophils (%) (Auto) 55.9 % (45.0-75.0) 58.6 % (45.0-75.0) Lymphocytes (%) (Auto) 36.2 % (20.0-45.0) 32.0 % (20.0-45.0) Monocytes (%) (Auto) 6.6 % (1.0-10.0) 8.4 % (1.0-10.0) Eosinophils (%) (Auto) 0.6 % (0.0-3.0) 0.5 % (0.0-3.0) Basophils (%) (Auto) 0.7 % (0.0-2.0) 0.5 % (0.0-2.0) Magnesium Level 2.1 MG/DL (1.8-2.4) Pro-B-Type Natriuretic Peptide 4523 pg/mL (0-125) Erythropoietin 7.4 mIU/mL (2.6-18.5) Test 02/08/20 06:10 White Blood Count 5.2 K/UL (4.8-10.8) Red Blood Count 4.46 M/UL (4.20-5.40) Hemoglobin 15.0 G/DL (12.0-16.0) Hematocrit 42.9 % (37.0-47.0) Mean Corpuscular Volume 96 FL (80-99) Mean Corpuscular Hemoglobin 33.5 PG (27.0-31.0) Mean Corpuscular Hemoglobin Concent 34.9 G/DL (32.0-36.0) Red Cell Distribution Width 13.2 % (11.6-14.8) Platelet Count 130 K/UL (150-450) Mean Platelet Volume 12.0 FL (6.5-10.1) Neutrophils (%) (Auto) 61.5 % (45.0-75.0) Lymphocytes (%) (Auto) 22.2 % (20.0-45.0) Monocytes (%) (Auto) 10.9 % (1.0-10.0) Eosinophils (%) (Auto) 1.0 % (0.0-3.0) Basophils (%) (Auto) 4.5 % (0.0-2.0) Height (Feet): 5 Height (Inches): 1.00 Weight (Pounds): 156 Objective Physical Exam Vitals with tachycardia Sp02 EP Interpretation: reviewed, normal General Appearance: alert, moderate distress ENT: hearing grossly normal, normal pharynx Neck: full range of motion, supple, no meningismus Respiratory: chest non-tender, respiratory distress Cardiovascular: regular rate, rhythm, no murmur Gastrointestinal: normal bowel sounds, non tender Musculoskeletal: back normal Psychiatric: anxious Anupam Lopes MD Feb 08, 2020 09:23
--- NOTE | 2020-02-08 10:45 | NUR ---
RD ASSESSMENT & RECOMMENDATIONS SEE CARE ACTIVITY FOR COMPLETE ASSESSMENT DAILY ESTIMATED NEEDS: Needs based on Pulmonary 53.5kg abw 25-30 kcals/kg [id number] total kcals 1-1.5 g protein/kg 54-80 g total protein Fluid per MD on lasix NUTRITION DIAGNOSIS: Decreased sodium needs r/t CHF as evidenced by elev BNP (5837), on lasix. CURRENT DIET: Cardiac PO DIET RECOMMENDATIONS: LOW NA diet ADDITIONAL RECOMMENDATIONS: 1) Daily calibrated bed scale wts while on lasix 2) Check lytes daily on lasix, replete as needed 3) Add Snacks in b/w meals 4) diarrhea noted, monitor for continued occurrences, lytes 5) B-complex qdaily 6) REC POC BG (noted hypoglycemic event 02/06); monitor BG pm snack as needed
--- NOTE | 2020-02-08 11:27 | Infectious Diseases Prog Note ---
Assessment/Plan Assessment/Plan antibiotics : none A 1. COVID-19 pneumonia. on 1 liter of oxygen with 97 % O2 saturation. s/p remdesivir, dexamethasone 2. Hypertension. 3. Asthma. 4. CHF P 1. continue off antibiotics 2. Continue isolation. Subjective Constitutional: Denies: fever, chills Respiratory: Reports: dry cough - decreased; Denies: shortness of breath Gastrointestinal/Abdominal: Reports: vomiting; Denies: nausea, diarrhea Musculoskeletal: Denies: pain Allergies: Coded Allergies: PENICILLINS (Verified Allergy, Unknown, 05/26/18) POTASSIUM (Verified Allergy, Unknown, 01/29/20) Objective Last 24 Hour Vital Signs Date Time Temp Pulse Resp B/P (MAP) Pulse Ox O2 Delivery O2 Flow Rate FiO2 02/08/20 09:00 Room Air 02/08/20 08:51 131/53 02/08/20 08:51 75 131/53 02/08/20 08:00 96.8 75 20 131/53 (79) 98 02/08/20 04:00 98.1 60 18 129/70 (89) 98 02/08/20 00:00 98.4 68 18 121/75 (90) 98 02/07/20 21:00 Room Air 02/07/20 20:00 98.6 57 18 97/55 (69) 98 02/07/20 16:00 97.6 79 18 117/76 (90) 99 02/07/20 12:00 97.9 77 19 114/66 (82) 99 Height (Feet): 5 Height (Inches): 1.00 Weight (Pounds): 156 Laboratory Tests Test 02/08/20 06:10 White Blood Count 5.2 K/UL (4.8-10.8) Red Blood Count 4.46 M/UL (4.20-5.40) Hemoglobin 15.0 G/DL (12.0-16.0) Hematocrit 42.9 % (37.0-47.0) Mean Corpuscular Volume 96 FL (80-99) Mean Corpuscular Hemoglobin 33.5 PG (27.0-31.0) H Mean Corpuscular Hemoglobin Concent 34.9 G/DL (32.0-36.0) Red Cell Distribution Width 13.2 % (11.6-14.8) Platelet Count 130 K/UL (150-450) L Mean Platelet Volume 12.0 FL (6.5-10.1) H Neutrophils (%) (Auto) 61.5 % (45.0-75.0) Lymphocytes (%) (Auto) 22.2 % (20.0-45.0) Monocytes (%) (Auto) 10.9 % (1.0-10.0) H Eosinophils (%) (Auto) 1.0 % (0.0-3.0) Basophils (%) (Auto) 4.5 % (0.0-2.0) H Current Medications Medications (Trade) Dose Ordered Sig/Elslie Route PRN Reason Start Time Stop Time Status Last Admin Dose Admin Acetaminophen (Tylenol) 650 mg Q4H PRN ORAL Mild Pain (Pain Scale 1-3) 01/29/20 09:45 02/28/20 09:44 Al Hydroxide/Mg Hydroxide (Mylanta) 30 ml EVERY 4 HOURS PRN ORAL upset stomach 01/29/20 09:45 02/28/20 09:44 02/01/20 11:15 Aspirin (ASA) 81 mg DAILY ORAL 01/30/20 09:00 03/15/20 08:59 02/08/20 08:50 Docusate Sodium (Colace) 100 mg TWICE A DAY ORAL 01/29/20 18:00 02/28/20 17:59 02/08/20 08:50 Enoxaparin Sodium (Lovenox) 40 mg DAILY SUBQ 01/30/20 09:00 04/29/20 08:59 02/08/20 08:49 Ergocalciferol (Drisdol) 50,000 intlu ONCE A WEEK ORAL 01/29/20 12:00 02/28/20 11:59 02/05/20 12:39 Ferrous Sulfate (Feosol) 325 mg BID ORAL 01/29/20 18:00 04/28/20 17:59 02/08/20 08:50 Gabapentin (Neurontin) 100 mg THREE TIMES A DAY ORAL 01/29/20 13:00 02/28/20 12:59 02/08/20 08:51 Lisinopril (PriniviL) 20 mg DAILY ORAL 02/07/20 09:00 03/05/21 08:59 02/08/20 08:51 Metoprolol Succinate (Toprol XL) 50 mg DAILY ORAL 01/30/20 09:00 04/29/20 08:59 02/08/20 08:51 Pantoprazole (Protonix) 40 mg DAILY ORAL 01/30/20 09:00 02/29/20 08:59 02/08/20 08:50 Carla Elizabeth MD Feb 08, 2020 11:26
[2020-02-08 12:00] VITALS: BP 130/53
--- NOTE | 2020-02-08 12:18 | Pulmonology Progress Note ---
Subjective ROS Limited/Unobtainable: No Constitutional: Denies: fever, chills Gastrointestinal/Abdominal: Reports: vomiting; Denies: nausea, diarrhea Musculoskeletal: Denies: pain Allergies: Coded Allergies: PENICILLINS (Verified Allergy, Unknown, 05/26/18) POTASSIUM (Verified Allergy, Unknown, 01/29/20) Subjective comfortable no distress off antibiotics Objective Last 24 Hour Vital Signs Date Time Temp Pulse Resp B/P (MAP) Pulse Ox O2 Delivery O2 Flow Rate FiO2 02/08/20 09:00 Room Air 02/08/20 08:51 131/53 02/08/20 08:51 75 131/53 02/08/20 08:00 96.8 75 20 131/53 (79) 98 02/08/20 04:00 98.1 60 18 129/70 (89) 98 02/08/20 00:00 98.4 68 18 121/75 (90) 98 02/07/20 21:00 Room Air 02/07/20 20:00 98.6 57 18 97/55 (69) 98 02/07/20 16:00 97.6 79 18 117/76 (90) 99 Intake and Output 02/07/20 02/08/20 19:00 07:00 Intake Total 800 ml 240 ml Balance 800 ml 240 ml Intake Oral 600 ml 240 ml Other 200 ml # Voids 3 # Bowel Movements 1 Objective deferred due to COVID Laboratory Tests 02/08/20 06:10: White Blood Count 5.2, Red Blood Count 4.46, Hemoglobin 15.0, Hematocrit 42.9, Mean Corpuscular Volume 96, Mean Corpuscular Hemoglobin 33.5H, Mean Corpuscular Hemoglobin Concent 34.9, Red Cell Distribution Width 13.2, Platelet Count 130L, Mean Platelet Volume 12.0H, Neutrophils (%) (Auto) 61.5, Lymphocytes (%) (Auto) 22.2, Monocytes (%) (Auto) 10.9H, Eosinophils (%) (Auto) 1.0, Basophils (%) (Auto) 4.5H 02/08/20 11:46: POC Whole Blood Glucose 90 Current Medications Medications (Trade) Dose Ordered Sig/Leslie Route PRN Reason Start Time Stop Time Status Last Admin Dose Admin Acetaminophen (Tylenol) 650 mg Q4H PRN ORAL Mild Pain (Pain Scale 1-3) 01/29/20 09:45 02/28/20 09:44 Al Hydroxide/Mg Hydroxide (Mylanta) 30 ml EVERY 4 HOURS PRN ORAL upset stomach 01/29/20 09:45 02/28/20 09:44 02/01/20 11:15 Aspirin (ASA) 81 mg DAILY ORAL 01/30/20 09:00 03/15/20 08:59 02/08/20 08:50 Docusate Sodium (Colace) 100 mg TWICE A DAY ORAL 01/29/20 18:00 02/28/20 17:59 02/08/20 08:50 Enoxaparin Sodium (Lovenox) 40 mg DAILY SUBQ 01/30/20 09:00 04/29/20 08:59 02/08/20 08:49 Ergocalciferol (Drisdol) 50,000 intlu ONCE A WEEK ORAL 01/29/20 12:00 02/28/20 11:59 02/05/20 12:39 Ferrous Sulfate (Feosol) 325 mg BID ORAL 01/29/20 18:00 04/28/20 17:59 02/08/20 08:50 Gabapentin (Neurontin) 100 mg THREE TIMES A DAY ORAL 01/29/20 13:00 02/28/20 12:59 02/08/20 12:11 Lisinopril (PriniviL) 20 mg DAILY ORAL 02/07/20 09:00 03/05/21 08:59 02/08/20 08:51 Metoprolol Succinate (Toprol XL) 50 mg DAILY ORAL 01/30/20 09:00 04/29/20 08:59 02/08/20 08:51 Pantoprazole (Protonix) 40 mg DAILY ORAL 01/30/20 09:00 02/29/20 08:59 02/08/20 08:50 Assessment/Plan Assessment/Plan Congestive heart failure, hypertension, asthma, COVID positive, mild hypoxemia, mild azotemia, pneumonia. leukopenia PLAN isolation positive repeat PCR ID clearance noted diurese monitor imaging oxygen to off nontoxic placement needed case management aware for dc impression, plan, and exam edited and reviewed in detail care discussed with Parag De Guzman MD Feb 08, 2020 12:18
--- NOTE | 2020-02-08 12:55 | Cardiology Progress Note ---
Subjective DATE OF SERVICE: Feb 08, 2020 Still Covid 19 PCR positive No CP; troponin levels have normalized. No SOB; on low flow O2. Monitor: sinus with non-sustained ectopy 2D Echo: EF 30% with mild-mod regurgitation. Objective Last 24 Hour Vital Signs Date Time Temp Pulse Resp B/P (MAP) Pulse Ox O2 Delivery O2 Flow Rate FiO2 02/08/20 12:00 97.5 66 20 130/53 (78) 98 02/08/20 09:00 Room Air 02/08/20 08:51 131/53 02/08/20 08:51 75 131/53 02/08/20 08:00 96.8 75 20 131/53 (79) 98 02/08/20 04:00 98.1 60 18 129/70 (89) 98 02/08/20 00:00 98.4 68 18 121/75 (90) 98 02/07/20 21:00 Room Air 02/07/20 20:00 98.6 57 18 97/55 (69) 98 02/07/20 16:00 97.6 79 18 117/76 (90) 99 ROS: unchanged from my evaluation of 01/29/20 HEENT: normal ENT inspection RHYTHM: NSR, PVCs, PACs LUNGS: rales bilaterally CARDIAC: normal rate, regular rhythm, normal S1 and S2, systolic murmur - 1/6 systolic murmur at apex ABDOMEN: normal bowel sounds, non tender EXTREMITIES: non-tender, trace edema Laboratory Tests Test 02/08/20 06:10 02/08/20 11:46 White Blood Count 5.2 K/UL (4.8-10.8) Red Blood Count 4.46 M/UL (4.20-5.40) Hemoglobin 15.0 G/DL (12.0-16.0) Hematocrit 42.9 % (37.0-47.0) Mean Corpuscular Volume 96 FL (80-99) Mean Corpuscular Hemoglobin 33.5 PG (27.0-31.0) H Mean Corpuscular Hemoglobin Concent 34.9 G/DL (32.0-36.0) Red Cell Distribution Width 13.2 % (11.6-14.8) Platelet Count 130 K/UL (150-450) L Mean Platelet Volume 12.0 FL (6.5-10.1) H Neutrophils (%) (Auto) 61.5 % (45.0-75.0) Lymphocytes (%) (Auto) 22.2 % (20.0-45.0) Monocytes (%) (Auto) 10.9 % (1.0-10.0) H Eosinophils (%) (Auto) 1.0 % (0.0-3.0) Basophils (%) (Auto) 4.5 % (0.0-2.0) H POC Whole Blood Glucose 90 MG/DL (74-106) Assessment/Plan Assessment/Plan Acute myocardial ischemia Possible NSTE MO Acute/chr systolic and diastolic CHF COVID 19 PNA Hypoxia Ischemic cardiomyopathy Acute renal failure resolved - but rising Bun/Cr now due to diuresis. Degenerative valve disease with mitral regurg. Anti-virals O2 - low flow as needed Hold diuresis for now, but will need maintenance dose group home. Titrate ACEi and beta concepcion as tolerated by BP Anticoagulation per COVID 19 parameters Steroids per pulmonary Anti-plt rx Estiven Xavier MD Feb 08, 2020 12:55
--- NOTE | 2020-02-08 13:28 | Cardiology Report ---
APPROVED REPORT EKG Measurement Heart [id number] <Conclusion> Sinus tachycardia with occasional premature ventricular complexes and fusion complexes Possible Left atrial enlargement Nonspecific ST and T wave abnormality Abnormal ECG
--- NOTE | 2020-02-08 15:14 | NUR ---
NURSE NOTES: RN called Dr. Aguillon regarding patients clearance for discharge. Awaiting call back
[2020-02-08 16:00] VITALS: BP 124/68
--- NOTE | 2020-02-08 17:43 | NUR ---
NURSE NOTES: Received call back from Dr. Pal guzman to d/c home. Discharge will be tomorrow AM. Patient states that her ride home will pick her up tomorrow
--- NOTE | 2020-02-08 17:45 | NUR ---
NURSE NOTES: Dr. Aguillon called back late and gave instruction for patient to d/c home with no new prescription and to continue home medications. Will endorse to next shift. Charge nurse aware
--- NOTE | 2020-02-08 18:14 | NUR ---
NURSE NOTES: Patients belongings missing, but RN offered and found clothes as replacement. Patient agreed to sign belongings form, espñaa and keys are safe with patient. RN was made aware by patient that her granddaughter Smitha Aguero will pick her up. RN unable to contact.
--- NOTE | 2020-02-08 18:28 | NUR ---
NURSE NOTES: RN called patients other relative Smitha Aguero but unable to contact, RN left a message regarding estimate time of pepper picker. Awaiting call back
--- NOTE | 2020-02-08 19:28 | NUR ---
NURSE HAND-OFF: Important Events on Shift: for discharge Patient Status: stable Diet: cardiac Pending Orders: n/a Pending Results/Labs:n/a Pending MD notification:n/ Latest Vital Signs: Temperature 97.6 , Pulse 72 , B/P 124 /68 , Respiratory Rate 19 , O2 SAT 98 , Room Air, O2 Flow Rate 1.0 . Vital Sign Comment: stable Latest Live Fall Score: 35 Fall Risk: Medium Risk Safety Measures: Call light Within Reach, Bed Alarm Zone 1, Side Rails Side Rails x2, Bed position Low and Locked. Fall Precautions: Yellow Socks Report given to MELYSSA George.
--- NOTE | 2020-02-08 19:30 | NUR ---
NURSE NOTES: RECEIVED PATIENT LYING IN BED, AWAKE, ALERT/ORIENTED X4, VERBALLY RESPONSIVE, DENIES PAIN. VERY PLEASANT. NO SIGNS AND SYMPTOMS OF ACUTE CARDIO RESPIRATORY DISTRESS/SHORTNESS OF BREATH, DENIES CHEST PAIN, NO PERIPHERAL EDEMA NOTED. REMOVED PERIPHERAL IV WITHOUT DIFFICULTY, NO BLEEDING NOTED. BELONGING LIST SIGNED BY PATIENT, DISCHARGE PACKAGE PROVIDED TO PATIENT FROM MELYSSA COOPER. DENIES GI DISCOMFORT, NO N/V/D. SIDE RAILS UP X2 FOR MOBILITY, BED IN LOWEST POSITION FOR SAFETY. RESTING WELL PENDING DISCHARGE HOME TONIGHT VIA FAMILY VEHICLE, PATIENT AWARE. NAD.
[2020-02-08 20:00] VITALS: BP 129/66
--- NOTE | 2020-02-08 20:40 | NUR ---
NURSE NOTES: PATIENT DISCHARGED HOME VIA FAMILY VEHICLE, ACCOMPANIED BY NIECE, INSTRUCTED PATIENT AND FAMILY THAT PATIENT SHOULD CONTINUE TO SELF ISOLATE X1 MORE WEEK, VERBALIZED UNDERSTANDING.
--- NOTE | 2020-02-10 16:54 | Discharge Summary ---
Discharge Summary Discharge Summary _ DATE OF ADMISSION: 01/29/2020 DATE OF DISCHARGE: 02/08/2020 DISCHARGED BY: Dr. Sandy Aguillon CONSULTANTS: Dr. Estiven Lopes [facility] HOSPITAL COURSE: Patient is an 84-year-old female who was brought to ED due to increasing shortness of breath. She has a history of asthma. She had a cough that was nonproductive. Per EMS, she was saturating 94% on room air. On evaluation at ED, blood work showed WBC of 4.3. Hemoglobin and hematocrit were stable. Electrolytes were normal. proBNP was elevated to greater than 35,000. CRP 1.9. LDH 249. Patient is Covid positive. Chest x-ray showed pulmonary edema. EKG showed sinus tachycardia with nonspecific STT wave changes. She was started on antibiotics. She was also given Lasix, steroids and Lovenox. She was admitted for acute respiratory failure. She was admitted to monitored floor. She was given diuresis, beta-concepcion and antiplatelet therapy. She was started on steroids. She was started on Decadron. She was given full anticoagulation with Lovenox. Echocardiogram showed EF of 30% with mild to moderate regurgitation. She responded to diuretic treatment. IV diuresis was transitioned to p.o. Patient presented with pancytopenia. Cheese Specialist was consulted. Peripheral smear reviewed. Hepatitis and HIV screen were negative. She completed Decadron and remdesivir. There was increase in renal parameters, possibly due to diuresis. Diuresis was placed on hold. Patient will need long-term maintenance dose. She was saturating well on room air. Patient was eventually discharged home. Instructions given to continue 1 more week of isolation. FINAL DIAGNOSES: Acute myocardial ischemia Possible NSTEMI Acute on chronic systolic and diastolic CHF COVID-19 pneumonia Hypoxia Ischemic cardiomyopathy Acute renal failure, resolved Acute respiratory failure due to Covid Degenerative valve disease with mitral regurgitation Pancytopenia, likely related to Covid D-dimer elevation due to Covid DISPOSITION: Patient was discharged home. DISCHARGE MEDICATIONS: Refer to Discharge Medication List. DISCHARGE INSTRUCTIONS: Follow-up in a week. I have been assigned to complete a discharge summary on this account, I was not involved with the patient's management.--ILIA Wood Jacqueline Robles NP Feb 10, 2020 16:53
== END 2020-02-08 20:40 | disposition home or self-care (01) | DRG 177 ==
LOC: EDBD 00:45 → EMR 01:08 → 2E 02:49 → EDBEDREQ 03:29 → 2E 14:40 → 4E 02-04 21:52
DX: U07.1 COVID-19 (principal); J12.89 Other viral pneumonia; I21.4 Non-ST elevation (NSTEMI) myocardial infarction; I50.43 Acute on chronic combined systolic (congestive) and diastolic (congestive) heart failure; J96.01 Acute respiratory failure with hypoxia; D61.818 Other pancytopenia; N17.9 Acute kidney failure, unspecified; I11.0 Hypertensive heart disease with heart failure; Z88.0 Allergy status to penicillin; Z88.8 Allergy status to other drugs, medicaments and biological substances; J45.909 Unspecified asthma, uncomplicated; I34.0 Nonrheumatic mitral (valve) insufficiency; I25.5 Ischemic cardiomyopathy
CPT/HCPCS: 36415; 71045; 80048; 80053; 80061; 81003; 82248; 82378; 82550; 82553; 82668; 82728; 82962; 83540; 83550; 83605; 83615; 83690; 83735; 83880; 84443; 84484; 85007; 85025; 85379; 85610; 85730; 86140; 86304; 86703; 86705; 86709; 86803; 87040; 87340; 93005; 93306; 94640; 96365; 96368; 96372; 96375; 99291; J3490; U0002